=== PATIENT | male | born 1935 | race Caucasian/White ===

== ENCOUNTER 2016-10-25 20:07 | Inpatient (IN) | payer MEDICARE ==
[~2016-10-25] VITALS: Ht 171.4 cm; Wt 85.4 kg
[~2016-10-25 20:07] MED LIST: HYDR-3533 PO; LEVO175T19 PO; LISI30TA44 PO; TEMA30CA PO
[2016-10-25 20:15] VITALS: BP 150/72; PULSE 98; RESP 18; TEMP 98.5; O2SAT 91
[2016-10-25] MEDS ORDERED: SODIUM CHLORIDE 0.9% FLUSH 5 ML FLUSH IVF PRN (21:15)
[2016-10-25 21:20] VITALS: O2SAT 98
[2016-10-25 21:40] VITALS: BP 135/72; PULSE 88; RESP 18; O2SAT 98
--- NOTE | 2016-10-25 21:44 | RADHPO ---
EXAM DATE/TIME: 10/25/2016 21:27 [place] COMPARISON: No previous studies available for comparison. INDICATIONS : High fever and chills with cough. MEDICAL HISTORY : None. SURGICAL HISTORY : None. ENCOUNTER: Initial ACUITY: 2 days PAIN SCORE: 6/10 LOCATION: Bilateral upper chest FINDINGS: PA and lateral views of the chest demonstrate the lungs to be symmetrically aerated without evidence of mass, infiltrate or effusion. The cardiomediastinal contours are unremarkable. Osseous structure s are intact. CONCLUSION: No acute disease. Anuel Jaffe MD on October 25, 2016 at 21:42 Board Certified Radiologist. This report was verified electronically.
[2016-10-25 21:48] LABS: AUTOMATED NEUTROPHIL # 4.9 TH/MM3 (1.8-7.7); BASOPHIL # 0.1 TH/MM3 (0-0.2); BASOPHIL % 0.8 % (0.0-2.0); EOSINOPHIL # 0.1 TH/MM3 (0-0.4); EOSINOPHIL % 1.4 % (0.0-4.0); HEMATOCRIT 39.8 % (39.0-51.0); HEMO FLAGS DIFF FINAL; LYMPH % 13.5 % (9.0-44.0); MEAN CELL VOLUME 93.6 FL (80.0-100.0); MEAN CORPUSCULAR HEMOGLOBIN 31.4 PG (27.0-34.0); MEAN CORPUSCULAR HGB CONC 33.5 % (32.0-36.0); MONO % 14.6 % (0.0-8.0); NEUT % 69.7 % (16.0-70.0); PLATELET COUNT 184 TH/MM3 (150-450); RED BLOOD COUNT 4.25 MIL/MM3 (4.50-5.90); RED CELL DISTRIBUTION WIDTH 13.7 % (11.6-17.2); WHITE BLOOD COUNT 7.1 TH/MM3 (4.0-11.0)
[2016-10-25] MEDS ORDERED: LISI-515 PO (21:49)
[2016-10-25] MEDS ORDERED: LEVO125T4 PO (21:49)
[2016-10-25] MEDS ORDERED: DORZ2SOL15 EACH EYE (21:49)
[2016-10-25] MEDS ORDERED: LATA0.002 EACH EYE (21:49)
[2016-10-25] MEDS ORDERED: TEMA15CA PO (21:49)
[2016-10-25 21:57] LABS: POTASSIUM 3.8 MEQ/L (3.5-5.1)
[2016-10-25 22:02] LABS: APTT (PATIENT) 27.6 SEC (24.3-30.1); PROTHROMBIN TIME - PATIENT 10.9 SEC (9.8-11.6)
[2016-10-25] MEDS ORDERED: ASPIRIN 81 MG CHEW TAB CHEW ONE (22:30)
[2016-10-25 22:35] VITALS: BP 140/74; PULSE 84; RESP 16
[2016-10-25] MEDS ORDERED: HEPARIN-D5W INJ 250 ML IV SCH (22:45)
[2016-10-25] MEDS ORDERED: HEPARIN SODIUM - IV 10,000 UNITS/10 ML VIAL IV ONE (22:45)
[2016-10-25 22:50] VITALS: BP 140/70; PULSE 91; RESP 18; O2SAT 96
[2016-10-25] MEDS ORDERED: NITROGLYCERIN 0.4 MG SL 25 TABS/BTL SL ONE (23:00)
[2016-10-25 23:26] VITALS: BP 152/75; PULSE 82; RESP 17; O2SAT 98
[2016-10-25] MEDS ORDERED: ACETAMINOPHEN 500 MG CPLT PO PRN (23:30)
[2016-10-25] MEDS ORDERED: TEMAZEPAM 15 MG CAP PO PRN (23:30)
--- NOTE | 2016-10-25 23:38 | HHI.HP ---
HPI Service CP Hospitalists Primary Care Physician Non-Staff Admission Diagnosis NSTEMI Chief Complaint: CHEST TIGHTNESS, FLU LIKE ILLNESS WITH DRY HEAVES Travel History International Travel<30 Days: No Contact w/Intl Traveler <30 Da: No Traveled to Known Affected Are: No History of Present Illness Pt with HTN and hypothyroidism presents with c/o dry heaves, fever for last 1.5 days. No foreign travel. Noted some epigastric pain and chest tightness that he ascribed to dry heaves. Has had similar intermittent chest tightness over last 6 mos which he thought was due to hiatal hernia. He presented to ER as chest tightness lasted all night and all day today and was increasing painful to 8/10 intensity. No radiation of pain. ER eval noted for healthy appearing male in no significant distress, but Trop elevated to 0.68. Non-STEMI dx and cardiology recommended heparin and xfer to [facility]. Pt appears quite stable and no significant EKG changes noted. Review of Systems Constitutional: COMPLAINS OF: Fatigue, Change in appetite Ears, nose, mouth, throat: COMPLAINS OF: Nasal discharge, DENIES: Tinnitus, Hearing loss, Vertigo, Oral lesions, Throat pain, Hoarseness, Ear Pain, Running Nose, Epistaxis, Sinus Pain, Toothache, Odynophagia Respiratory: COMPLAINS OF: Cough, DENIES: Apneas, Snoring, Wheezing, Hemoptysis, Sputum production, Shortness of breath Cardiovascular: COMPLAINS OF: Chest pain Gastrointestinal: COMPLAINS OF: Nausea, Reflux, DENIES: Abdominal pain, Black stools, Bloody stools, BRB per rectum, Constipation, Diarrhea, GERD, Vomiting, Difficulty Swallowing, Anorexia, See HPI Musculoskeletal: DENIES: Joint pain, Muscle aches, Stiffness, Joint Swelling, Back pain, Neck pain Integumentary: DENIES: Abnormal pigmentation, Nail changes, Pruritus, Rash Hematologic/lymphatic: DENIES: Bruising, Lymphadenopathy Immunologic/allergic: DENIES: Eczema, Urticaria Neurologic: DENIES: Abnormal gait, Headache, Localized weakness, Paresthesias, Seizures, Speech Problems, Tremor, Poor Balance Psychiatric: DENIES: Anxiety, Confusion, Mood changes, Depression, Hallucinations, Agitation, Suicidal Ideation, Homicidal Ideation, Delusions, History of Bipolar, History of Schizophrenia Past Family Social History Past Medical History HTN hypothyroidism Glaucoma Past Surgical History T&A Appy Reported Medications levothyroxine. Lisinopril Glaucoma drops Allergies: Coded Allergies: No Known Allergies (Verified , 10/25/16) Family History Father of [place] in his 50s Social History No tobacco 1-2 drinks twice a week retired [employer] from [employer] Physical Exam Vital Signs Vital Signs Date Time Temp Pulse Resp B/P Pulse Ox O2 Delivery O2 Flow Rate FiO2 10/25/16 23:26 82 17 152/75 98 Nasal Cannula 2 10/25/16 22:47 100 Nasal Cannula 2 10/25/16 21:40 88 18 135/72 98 Room Air 10/25/16 21:20 Room Air 10/25/16 21:20 98 Room Air 10/25/16 20:15 98.5 98 18 150/72 91 Physical Exam GENERAL: This is a well-nourished, well-developed patient, in no apparent distress. Appears younger than stated age. SKIN: slightly xerotic HEAD: Atraumatic. Normocephalic. No temporal or scalp tenderness. EYES: Pupils equal round and reactive. Extraocular motions intact. No scleral icterus. No injection or drainage. ENT: Nose without bleeding, purulent drainage or septal hematoma. Airway patent. NECK: Trachea midline. No JVD or lymphadenopathy. Supple, nontender, no meningeal signs. CARDIOVASCULAR: Regular rate and rhythm without murmurs, gallops, or rubs. RESPIRATORY: Clear to auscultation. Breath sounds equal bilaterally. No wheezes , rales, or rhonchi. GASTROINTESTINAL: Abdomen soft, nondistended. Mild ttp in epigastrium. No hepato -splenomegaly, or palpable masses. No guarding. MUSCULOSKELETAL: Extremities without clubbing, cyanosis, or edema. No joint tenderness, effusion, or edema noted. No calf tenderness. NEUROLOGICAL: Awake and alert. Cranial nerves II through XII intact. Motor and sensory grossly within normal limits. Five out of 5 muscle strength in all muscle groups. Normal speech. Laboratory Laboratory Tests Test 10/25/16 21:25 White Blood Count 7.1 Red Blood Count 4.25 Hemoglobin 13.3 Hematocrit 39.8 Mean Corpuscular Volume 93.6 Mean Corpuscular Hemoglobin 31.4 Mean Corpuscular Hemoglobin 33.5 Concent Red Cell Distribution Width 13.7 Platelet Count 184 Mean Platelet Volume 8.3 Neutrophils (%) (Auto) 69.7 Lymphocytes (%) (Auto) 13.5 Monocytes (%) (Auto) 14.6 Eosinophils (%) (Auto) 1.4 Basophils (%) (Auto) 0.8 Neutrophils # (Auto) 4.9 Lymphocytes # (Auto) 1.0 Monocytes # (Auto) 1.0 Eosinophils # (Auto) 0.1 Basophils # (Auto) 0.1 CBC Comment DIFF FINAL Differential Comment Prothrombin Time 10.9 Prothromb Time International 1.0 Ratio Activated Partial 27.6 Thromboplast Time Sodium Level 140 Potassium Level 3.8 Chloride Level 105 Carbon Dioxide Level 25.0 Anion Gap 10 Blood Urea Nitrogen 15 Creatinine 1.10 Estimat Glomerular Filtration 64 Rate Random Glucose 94 Calcium Level 8.7 Magnesium Level 2.0 Total Creatine Kinase 79 Troponin I 0.68 Date/Time Procedure Status Source Growth 10/25/16 21:29 Influenza Types A,B Antigen (TATIANNA) - Final Complete Nasal Washing Positive For Flu A Antigen Result Diagram: 10/25/16212410/25/162124 Imaging Last 72 hours Impressions Chest X-Ray 10/25/16 0000 Signed Impressions: Service Date/Time: Tuesday, October 25, 2016 21:27 - CONCLUSION: No acute disease. Anuel Jaffe MD Assessment and Plan Problem List: (1) Non-STEMI (non-ST elevated myocardial infarction) Status: Acute Plan: Clinically stable. Cardiology consulted and ER physician d/w Dr Padilla. Will xfer to [facility]. Continue meds including heparin. Currently no CP (2) Influenza Status: Acute Plan: manage symptomatically. Appears well. (3) Hypertension Status: Chronic Plan: continue rx. (4) Hypothyroid Status: Chronic Plan: continue rx. Code Status full Discussed Condition With pt and Er physician Physician Certification 2 Midnight Certification Type: Admission for Inpatient Services Order for Inpatient Services The services are ordered in accordance with Medicare regulations or non- Medicare payer requirements, as applicable. In the case of services not specified as inpatient-only, they are appropriately provided as inpatient services in accordance with the 2-midnight benchmark. Estimated LOS (days): 2 days is the estimated time the patient will need to remain in the hospital, assuming treatment plan goals are met and no additional complications. Post-Hospital Plan: Home David Hill MD PhD Oct 25, 2016 23:38
--- NOTE | 2016-10-25 23:56 | PD ---
HPI Chief Complaint: Abdominal Pain Time Seen by Provider: 21:05 Travel History International Travel<30 days: No Contact w/Intl Traveler<30days: No Traveled to known affect area: No History of Present Illness HPI Patient is an 81-year-old male presents emergency department for evaluation of flulike symptoms for the past few days and then chest tightness in the epigastric region without radiation since last night. Was accompanied with some nausea without vomiting but no shortness of breath. Patient thought it was his hiatal hernia that was acting up but decided to come in and be checked out anyways. States he had a fever the other day to 101. Does also endorse cough and some mild body aches. No history of cardiac disease but does endorse hypertension hyperlipidemia. Has never seen a academic advisor. On arrival he states his chest tightness is minimal. PFSH Past Medical History Heart Rhythm Problems: No Cardiac Catheterization: No High Cholesterol: No Congestive Heart Failure: No Diabetes: No Hiatal Hernia: Yes Hypertension: Yes Inguinal Hernia: Yes Thyroid Disease: Yes Tetanus Vaccination: < 5 Years Influenza Vaccination: Yes Past Surgical History Appendectomy: Yes Coronary Artery Bypass Graft: No Tonsillectomy: Yes Other Surgery: Yes (INGUINAL HERNIA REMOVED ) Family History Family Myocardial Infarction: Yes (father of heat attack) Social History Alcohol Use: Yes (OCC) Tobacco Use: No Substance Use: No Allergies-Medications (Allergen,Severity, Reaction): Coded Allergies: No Known Allergies (Verified , 10/25/16) Reported Meds & Prescriptions Reported Meds & Active Scripts Active Reported Dorzolamide-Timolol Opth Drops 22.3-6.8 Mg/Ml Soln 1 Drop EACH EYE BID Latanoprost Opth Drops (Latanoprost) 0.005% Drops 1 Drop EACH EYE HS Refrigerate until opened. Temazepam 15 Mg Cap 15 Mg PO HS PRN Levothyroxine (Levothyroxine Sodium) 125 Mcg Tab 150 Mcg PO DAILY Lisinopril 20 Mg Tab 20 Mg PO DAILY Review of Systems Except as stated in HPI: all other systems reviewed are Neg Physical Exam Narrative GENERAL: Well-developed well-nourished appears younger stated age chewing gum in no apparent distress. SKIN: Warm and dry. HEAD: Atraumatic. Normocephalic. EYES: Pupils equal and round. No scleral icterus. No injection or drainage. ENT: No nasal bleeding or discharge. Mucous membranes pink and moist. NECK: Trachea midline. No JVD. CARDIOVASCULAR: Regular rate and rhythm. No murmur appreciated. RESPIRATORY: No accessory muscle use. Clear to auscultation. Breath sounds equal bilaterally. GASTROINTESTINAL: Abdomen soft, non-tender, nondistended. Hepatic and splenic margins not palpable. MUSCULOSKELETAL: No obvious deformities. No clubbing. No cyanosis. No edema. NEUROLOGICAL: Awake and alert. No obvious cranial nerve deficits. Motor grossly within normal limits. Normal speech. PSYCHIATRIC: Appropriate mood and affect; insight and judgment normal. Data Data Last Documented VS Vital Signs Date Time Temp Pulse Resp B/P Pulse Ox O2 Delivery O2 Flow Rate FiO2 10/25/16 22:50 91 18 140/70 96 Nasal Cannula 2 10/25/16 20:15 98.5 Orders Electrocardiogram (10/25/16 21:10) Basic Metabolic Panel (Bmp) (10/25/16 21:10) Ckmb (Isoenzyme) Profile (10/25/16 21:10) Complete Blood Count With Diff (10/25/16 21:10) Magnesium (Mg) (10/25/16 21:10) Prothrombin Time / Inr (Pt) (10/25/16 21:10) Act Partial Throm Time (Ptt) (10/25/16 21:10) Troponin I (10/25/16 21:10) Ecg Monitoring (10/25/16 21:10) Iv Access Insert/Monitor (10/25/16 21:10) Oximetry (10/25/16 21:10) Oxygen Administration (10/25/16 21:10) Sodium Chloride 0.9% Flush (Ns Flush) (10/25/16 21:15) Chest, Pa & Lat (10/25/16 ) Influenzae A/B Antigen (10/25/16 21:10) Aspirin Chew (Aspirin Chew) (10/25/16 22:30) Heparin Infusion FLOR.Q1H (10/25/16 22:45) Heparin Inj (Heparin Inj) (10/25/16 22:45) Heparin Inj (Heparin Inj) (10/26/16 04:45) Heparin Inj (Heparin Inj) (10/26/16 04:45) Heparin-D5w Inj (Heparin-D5w Inj) (10/25/16 22:45) Cbc No Diff, Includes Plts (10/28/16 06:00) Act Partial Throm Time (Ptt) (10/26/16 05:45) Occult Blood (Hemoccult) Stool (10/25/16 22:45) Nitroglycerin Sl (Nitrostat Sl) (10/25/16 23:00) Admit Order (Ed Use Only) (10/25/16 ) Labs Laboratory Tests Test 10/25/16 21:25 White Blood Count 7.1 TH/MM3 Red Blood Count 4.25 MIL/MM3 Hemoglobin 13.3 GM/DL Hematocrit 39.8 % Mean Corpuscular Volume 93.6 FL Mean Corpuscular Hemoglobin 31.4 PG Mean Corpuscular Hemoglobin 33.5 % Concent Red Cell Distribution Width 13.7 % Platelet Count 184 TH/MM3 Mean Platelet Volume 8.3 FL Neutrophils (%) (Auto) 69.7 % Lymphocytes (%) (Auto) 13.5 % Monocytes (%) (Auto) 14.6 % Eosinophils (%) (Auto) 1.4 % Basophils (%) (Auto) 0.8 % Neutrophils # (Auto) 4.9 TH/MM3 Lymphocytes # (Auto) 1.0 TH/MM3 Monocytes # (Auto) 1.0 TH/MM3 Eosinophils # (Auto) 0.1 TH/MM3 Basophils # (Auto) 0.1 TH/MM3 CBC Comment DIFF FINAL Differential Comment Prothrombin Time 10.9 SEC Prothromb Time International 1.0 RATIO Ratio Activated Partial 27.6 SEC Thromboplast Time Sodium Level 140 MEQ/L Potassium Level 3.8 MEQ/L Chloride Level 105 MEQ/L Carbon Dioxide Level 25.0 MEQ/L Anion Gap 10 MEQ/L Blood Urea Nitrogen 15 MG/DL Creatinine 1.10 MG/DL Estimat Glomerular Filtration 64 ML/MIN Rate Random Glucose 94 MG/DL Calcium Level 8.7 MG/DL Magnesium Level 2.0 MG/DL Total Creatine Kinase 79 U/L Troponin I 0.68 NG/ML MDM Medical Decision Making Medical Screen Exam Complete: Yes Emergency Medical Condition: Yes Interpretation(s) EKG shows normal sinus rhythm with a left axis deviation and normal R-wave progression. Could be treated as inferior infarct by lead 3 and aVF Q waves. Intervals within normal limits. No acute ST T changes. This is an abnormal EKG but no evidence of ischemia. Differential Diagnosis NSTEMI, flu, pneumonia, NV, ACS, hiatal hernia, pancreatitis much less likely, acute cholecystitis versus likely, acute abdomen excluded clinically. Narrative Course Patient roomed in the emergency department, appears well and younger than stated age. In no obvious distress. EKG is reassuring, his troponin is 0.68. Rapid flu test is positive here in the emergency department. He was given aspirin as well as heparinized. Patient was discussed with Dr. Chris Padilla who would like patient transferred to the main hospital for consideration of intervention tomorrow. Patient discussed with Dr. Hill who will admit. Patient remains comfortable in the emergency department. Diagnosis Primary Impression: Non-STEMI (non-ST elevated myocardial infarction) Additional Impression: Influenza Admitting Information Admitting Physician Requests: Admit Condition: Stable Ag Maddox MD Oct 25, 2016 23:56
[2016-10-26] VITALS (26 sets, daily range): BP systolic 117–160; BP diastolic 52–75; PULSE 62–92; RESP 18–20; TEMP 97.8–99.7; O2SAT 94–98
[2016-10-26] MEDS: NITROGLYCERIN 2% OINT 1 GM PACKET TOPICAL SCH ×3 (00:54→22:03)
[2016-10-26] MEDS ORDERED: HEPARIN SODIUM - IV 10,000 UNITS/10 ML VIAL IV PRN ×2 (04:45)
[2016-10-26] MEDS: LEVOTHYROXINE SODIUM 125 MCG TAB PO SCH (07:08)
[2016-10-26] MEDS ORDERED: ONDANSETRON HCL 4 MG/2 ML VIAL IV PRN ×2 (08:45→14:30)
[2016-10-26] MEDS ORDERED: PHENOL 1.4% SOLN 180 ML BTL OROPHARYNG PRN (08:45)
--- NOTE | 2016-10-26 08:59 | HHI.PR ---
Subjective Remarks Pt reports that he feels terrible, very achy and his throat is very sore today States that his symptoms started Tuesday afternoon with myalgias and dry heaves He is planned for [facility] this afternoon. Objective Vitals Vital Signs Date Time Temp Pulse Resp B/P Pulse Ox O2 Delivery O2 Flow Rate FiO2 10/26/16 03:52 97.8 76 18 139/60 97 10/26/16 03:50 70 10/26/16 03:06 98.9 82 18 132/61 96 Nasal Cannula 2 10/26/16 03:06 98.9 82 18 132/61 Nasal Cannula 2 96 10/26/16 03:06 82 18 96 Nasal Cannula 2 10/26/16 02:11 85 18 117/52 96 Nasal Cannula 10/26/16 00:50 71 18 137/71 98 Nasal Cannula 1 10/26/16 00:11 98.8 84 18 131/71 96 Nasal Cannula 2 10/25/16 23:30 18 98 Nasal Cannula 2 10/25/16 23:26 82 17 152/75 98 Nasal Cannula 2 10/25/16 22:50 91 18 140/70 96 Nasal Cannula 2 10/25/16 22:47 100 Nasal Cannula 2 10/25/16 22:35 84 16 140/74 10/25/16 21:40 88 18 135/72 98 Room Air 10/25/16 21:20 Room Air 10/25/16 21:20 98 Room Air 10/25/16 20:15 98.5 98 18 150/72 91 10/25/16 10/25/16 10/26/16 15:00 23:00 07:00 Output Total 650 ml Balance -650 ml Output Urine Total 650 ml Result Diagram: 10/25/16212410/25/162124 Other Results Laboratory Tests Test 10/25/16 10/26/16 21:25 03:09 White Blood Count 7.1 TH/MM3 Red Blood Count 4.25 MIL/MM3 Hemoglobin 13.3 GM/DL Hematocrit 39.8 % Mean Corpuscular Volume 93.6 FL Mean Corpuscular Hemoglobin 31.4 PG Mean Corpuscular Hemoglobin 33.5 % Concent Red Cell Distribution Width 13.7 % Platelet Count 184 TH/MM3 Mean Platelet Volume 8.3 FL Neutrophils (%) (Auto) 69.7 % Lymphocytes (%) (Auto) 13.5 % Monocytes (%) (Auto) 14.6 % Eosinophils (%) (Auto) 1.4 % Basophils (%) (Auto) 0.8 % Neutrophils # (Auto) 4.9 TH/MM3 Lymphocytes # (Auto) 1.0 TH/MM3 Monocytes # (Auto) 1.0 TH/MM3 Eosinophils # (Auto) 0.1 TH/MM3 Basophils # (Auto) 0.1 TH/MM3 CBC Comment DIFF FINAL Differential Comment Prothrombin Time 10.9 SEC Prothromb Time International 1.0 RATIO Ratio Activated Partial 27.6 SEC Thromboplast Time Sodium Level 140 MEQ/L Potassium Level 3.8 MEQ/L Chloride Level 105 MEQ/L Carbon Dioxide Level 25.0 MEQ/L Anion Gap 10 MEQ/L Blood Urea Nitrogen 15 MG/DL Creatinine 1.10 MG/DL Estimat Glomerular Filtration 64 ML/MIN Rate Random Glucose 94 MG/DL Calcium Level 8.7 MG/DL Magnesium Level 2.0 MG/DL Total Creatine Kinase 79 U/L Troponin I 0.68 NG/ML 0.66 NG/ML Imaging Last 72 hours Impressions Chest X-Ray 10/25/16 0000 Signed Impressions: Service Date/Time: Tuesday, October 25, 2016 21:27 - CONCLUSION: No acute disease. Anuel Jaffe MD Objective Remarks General: NAD, AAOx3 Chest: CTA Cardiac: Regular Abd: +BS, soft ND/NT Ext: No edema A/P Problem List: (1) Non-STEMI (non-ST elevated myocardial infarction) Status: Acute Plan: - Pt has been having chest pressure intermittently for around 6 months this worsened yesterday after he had been having dry heaves since Tuesday afternoon (10/24) - He was noted to have elevated troponin in the ED of 0.68 --> 0.66 - Cardiology is following. - Pt is on Heparin gtt. - He is planned for [facility] this afternoon. - He denies any chest pressure currently - FELIX/ASA/Nitro (2) Influenza Status: Acute Plan: - Pt with myalgias, chills, pharyngitis, and had been having dry heaving. - Pt tested positive for Influenza A antigen - Start Tamiflu 75mg po BID as his symptoms began less than 2 days ago. - IVF - Zofran PRN - Tylenol PRN (3) Hypertension Status: Chronic Plan: - Stable. - Continue home rx. (4) Hypothyroid Status: Chronic Plan: - Continue home rx. Assessment and Plan Patient examined. Assessment and plan formulated with Mouna Hackett PA-C. I agree with the above. influenza. tamiflu cp/elevated ce's. [facility] today. Mouna Hackett Oct 26, 2016 08:59 Valeriano Hardy MD Oct 26, 2016 15:21
[2016-10-26] MEDS ORDERED: ASPIRIN 325 MG TAB PO SCH (09:00)
[2016-10-26] MEDS ORDERED: SODIUM CHLOR 0.9% 1000 ML INJ 1,000 ML IV SCH ×2 (09:00→14:16)
--- NOTE | 2016-10-26 09:18 | MB ---
cc: CHRIS PADILLA MD DATE OF CONSULTATION 10/26/2016 HISTORY OF PRESENT ILLNESS Mr. Stewart is a 89-year-old gentleman who has been admitted to the hospital because of some flu-like symptoms. On Tuesday he began having a sore throat with cough, headache and nausea and vomiting. He came to the emergency department and on presentation was found to have an elevated troponin. He has noted chest discomfort over the past six months which he describes as in the lower substernal at approximately the sternal notch. This generally occurs at rest and can last for as long as 20 minutes. It is associated with some shortness of breath. He has had no real exertional discomfort but has noted that [place] that evening will not uncommonly have his symptoms. No real exertional symptoms have been present, however, and the discomfort is usually spontaneously relieved. His risk factors for coronary disease include a history of hypertension. He denies any history of diabetes, hyperlipidemia or smoking. PAST MEDICAL HISTORY Otherwise has been unremarkable except for - Appendectomy Inguinal hernia repair. FAMILY HISTORY His father did of an OH at a later age. SOCIAL HISTORY The patient does not smoke or use recreational drugs. He rarely drinks alcohol. ALLERGIES No allergies are present . MEDICATIONS AT HOME 1. Temazepam at bedtime for sleep. 2. Levothyroxine 125 mcg daily. 3. Lisinopril 20 mg daily. PHYSICAL EXAMINATION GENERAL: On physical exam he is awake and alert and in no acute distress. VITAL SIGNS: His blood pressure is 130/60, pulse of 70 and regular. NECK: There is no neck vein distension. LUNGS: Clear. CARDIOVASCULAR: Exam reveals a 2/6 mitral regurgitation murmur at the apex with radiation throughout the precordium. No gallop was noted. ABDOMEN: Soft. There is no tenderness or organomegaly. EXTREMITIES: Reveal no edema. ELECTROCARDIOGRAM Normal sinus rhythm with minor nonspecific ST-segment changes. ASSESSMENT 1. The patient has actually had flu symptoms which are quiescent at this point in time. 2. he does have atypical chest pain but with an elevated troponin. PLAN We will plan a cardiac catheterization for further evaluation and we will also get an echocardiogram to further evaluate his mitral regurgitation. Chris Padilla MD DLMari/BEATRIZ /7:24 AM /9:05 AM
[2016-10-26] MEDS: LISINOPRIL 20 MG TAB PO SCH (10:09)
[2016-10-26 10:19] LABS: APTT (PATIENT) 64.2 SEC (24.3-30.1)
--- NOTE | 2016-10-26 10:25 | EC ---
Study Study Date:10/26/2016 STUDY CONCLUSIONS SUMMARY - Procedure narrative: Transthoracic echocardiography. Image quality was adequate. Scanning was performed from the parasternal, apical, and subcostal acoustic windows. - Left ventricle: The cavity size was normal. Wall thickness was normal. Systolic function was normal. The estimated ejection fraction was in the range of 60% to 65%. Wall motion was normal; there were no regional wall motion abnormalities. - Aortic valve: Moderate leaflet sclerosis. Mild regurgitation. Mean gradient: 25mm Hg consistent with mild to moderate stenosis. - Mitral valve: Mildly calcified annulus. Trace regurgitation. - Tricuspid valve: Trace regurgitation. - Pulmonary arteries: PA peak pressure: 32mm Hg (S). If LV function is below 40, please consider prescribing an ACEI or ARB or document rationale for non-use. PROCEDURE DATA STUDY STATUS: Elective. Procedure: Transthoracic echocardiography. Image quality was adequate. Scanning was performed from the parasternal, apical, and subcostal acoustic windows. Study completion: The patient tolerated the procedure well. Transthoracic echocardiography. M-mode, complete 2D, complete spectral Doppler, and color Doppler. Height: Height: 67in. Weight: Weight: 187.6lb. Body mass index: BMI: 29.4kg/m^2. Body surface area: BSA: 1.97m^2. Patient status: Inpatient. CARDIAC ANATOMY LEFT VENTRICLE: The cavity size was normal. Wall thickness was normal. Systolic function was normal. The estimated ejection fraction was in the range of 60% to 65%. Wall motion was normal; there were no regional wall motion abnormalities. AORTIC VALVE: Moderate leaflet sclerosis. Doppler: Mild regurgitation. Valve area: 1.1cm^2(VTI). Indexed valve area: 0.56cm^2/m^2 (VTI). Valve area: 1.04cm^2 (Vmax). Indexed valve area: 0.53cm^2/m^2 (Vmax). Mean gradient: 25mm Hg consistent with mild to moderate stenosis. Peak gradient: 46mm Hg (S). AORTA: Aortic root: The aortic root was normal in size. MITRAL VALVE: Mildly calcified annulus. Doppler: Transvalvular velocity was within the normal range. There was no evidence for stenosis. Trace regurgitation. Peak gradient: 4mm Hg (D). LEFT ATRIUM: The atrium was normal in size. RIGHT VENTRICLE: The cavity size was normal. Wall thickness was normal. PULMONIC VALVE: Doppler: Transvalvular velocity was within the normal range. There was no evidence for stenosis. No regurgitation. TRICUSPID VALVE: Structurally normal valve. Doppler: Transvalvular velocity was within the normal range. Trace regurgitation. PULMONARY ARTERY: The main pulmonary artery was normal-sized. Systolic pressure was within the normal range. RIGHT ATRIUM: The atrium was normal in size. PERICARDIUM: There was no pericardial effusion. SYSTEMIC VEINS: Inferior vena cava: The vessel was normal in size. Patient weight: 187.6lb _Ejection fraction:_ 65-75% _Fractional shortening:_ 32% up to 5Kg 5-11.5Kg 11.6-22.9Kg 23-45Kg 45-57Kg Aortic Root 7-13 <17 13-22 17-27 17-27 LA diam 6-13 <23 24-38 33-47 37-40 RVID 10-17 7-15 7-15 7-18 8-17 LVIDd 12-22 <32 24-38 33-47 37-40 LVPW 2-4 3-6 5-7 6-8 7-8 IVS 2-4 3-6 5-7 6-8 7-8 BASIC MEASUREMENTS ADULT NORMAL Left ventricle LV internal dimension, ED, chordal 44.7 mm 43-52 level, PLAX LV internal dimension, ES, chordal 32.4 mm 23-38 level, PLAX Fractional shortening, chordal level, *28 % >29 PLAX LV posterior wall thickness, ED 6.95 mm IVS/LVPW ratio, ED 1.07 <1.3 Ventricular septum Septal thickness, ED 7.47 mm Left atrium Anterior-posterior dimension 31 mm Anterior-posterior dimension index 1.57 cm/m^2 <2.2 Right ventricle RV internal dimension, ED, PLAX 26.2 mm 19-38 DOPPLER MEASUREMENTS ADULT NORMAL Main pulmonary artery Pressure, S *32 mm Hg =30 Aortic valve Peak velocity, S 313 cm/s Mean velocity, S 236 cm/s VTI, S 65.5 cm Mean gradient, S 25 mm Hg Peak gradient, S 46 mm Hg Valve area, VTI 1.1 cm^2 Valve area index, VTI 0.56 cm^2/m^2 Valve area, Vmax 1.04 cm^2 Valve area index, Vmax 0.53 cm^2/m^2 Mitral valve Peak E-wave velocity 95 cm/s Peak A-wave velocity 122 cm/s Peak gradient, D 4 mm Hg Peak E/A ratio 0.8 Maximal regurgitant velocity 599 cm/s Tricuspid valve Regurgitant peak velocity 259 cm/s Peak RV-RA gradient, S 27 mm Hg Maximal regurgitant velocity 259 cm/s Systemic veins Estimated CVP 5 mm Hg Right ventricle RV pressure, S *32 mm Hg <30 LEGEND: Mean values are shown as u=mean value. Asterisk (*) logan values outside specified normal range. Prepared and signed by Florian Jaimes [id number]
[2016-10-26] MEDS ORDERED: PHENOL 1.4% SOLN 180 ML BTL OROPHARYNG ONE (10:30)
[2016-10-26 10:48] LABS: HDL CHOLESTEROL 62.7 MG/DL (40.0-60.0)
--- NOTE | 2016-10-26 11:18 | EKG ---
Date Performed: 10/26/2016 Time Performed: 03:03:38 PTAGE: 81 years EKG: --- Warning: Data quality may affect interpretation --- Sinus rhythm with PAC(s). Lateral T wave changes are nonspecific Borderline ECG PREVIOUS TRACING : 10/25/2016 21.52 DOCTOR: Gurpreet Vasquez Interpretating Date/Time 10/26/2016 11:16:05
--- NOTE | 2016-10-26 11:18 | EKG ---
Date Performed: 10/25/2016 Time Performed: 21:52:06 PTAGE: 81 years EKG: Sinus rhythm Lateral ST-T changes are nonspecific Borderline ECG PREVIOUS TRACING : 03/06/2011 21.28 DOCTOR: Gurpreet Vasquez Interpretating Date/Time 10/26/2016 11:17:41
[2016-10-26] MEDS ORDERED: HEPARIN-NS/PF INJ 500 ML ONE (12:56)
[2016-10-26] MEDS ORDERED: MIDAZOLAM HCL 2 MG/2 ML VIAL ONE (12:56)
[2016-10-26] MEDS: OSELTAMIVIR PHOSPHATE 75 MG CAP PO SCH ×2 (13:00→22:03)
[2016-10-26] MEDS ORDERED: HEPARIN SODIUM - IV 10,000 UNITS/10 ML VIAL ONE (13:36)
[2016-10-26] MEDS ORDERED: NITROGLYCERIN 400 MCG/SPRAY 4.9 GM BOTTLE SL ONE (14:01)
[2016-10-26] MEDS ORDERED: CLOPIDOGREL 300 MG TAB ONE (14:07)
[2016-10-26] MEDS ORDERED: BACITRACIN OINT 0.9 GM PKT TOP ONE (14:30)
[2016-10-26] MEDS ORDERED: LIDOCAINE HCL 1% 50 ML VIAL INFIL PRN (14:30)
[2016-10-26] MEDS ORDERED: SODIUM CHLORIDE 0.9% FLUSH 10 ML FLUSH IV FLUSH PRN (14:30)
[2016-10-26] MEDS ORDERED: MISC INFORMATION XX ONE (14:30)
[2016-10-26] MEDS ORDERED: ATROPINE SULFATE 1 MG/ML VIAL IV PRN (14:30)
[2016-10-26] MEDS ORDERED: LIDOCAINE 2% JELLY 30 ML TUBE TOP PRN (14:30)
[2016-10-26] MEDS ORDERED: oxyCODONE/ACETAMINOPHEN 5 MG/325 MG TAB PO PRN (14:30)
[2016-10-26] MEDS ORDERED: METOCLOPRAMIDE HCL 10 MG/2 ML VIAL IV PRN (14:30)
[2016-10-26] MEDS ORDERED: LORazepam 2 MG/ML VIAL IV PRN (14:30)
[2016-10-26] MEDS ORDERED: SODIUM CHLOR 0.9% 250 ML INJ 250 ML IV PRN (14:30)
[2016-10-26] MEDS ORDERED: PILL SPLITTER OTHER PRN (15:00)
[2016-10-26 17:42] LABS: APTT (PATIENT) 99.7 SEC (24.3-30.1)
--- NOTE | 2016-10-26 17:56 | MA ---
cc: ALICIA CANALES MD DATE: 10/26/2016 PROCEDURE: Cardiac catheterization DESCRIPTION OF PROCEDURE: The patient was prepped and draped in the usual fashion. A 6-sheath was inserted percutaneously into the right femoral artery. Coronary angiography was accomplished initially with a 4-0 left catheter which was switched to a 4.5 catheter for better fit. The right system was unable to be cannulated with an R4 but a 3DR was able to cannulate the artery. HEMODYNAMICS: Aortic pressure was 100/60. LEFT VENTRICULOGRAPHY Not done. CORONARY ARTERIOGRAPHY: The left main coronary was normal. The left anterior descending artery demonstrated a 30 to 40% stenosis in the proximal portion with a second 40 to 50% stenosis in the mid portion. The first diagonal demonstrated some luminal irregularities but no significant high-grade stenoses were seen and liminal irregularities were also present throughout the course of the LAD. The circumflex artery arose from the left main and a 99% stenosis was present in its proximal portion with luminal irregularities noted throughout the distal course of the artery. The left circumflex itself was anatomically dominant. The right coronary artery was small and nondominant. No significant stenoses were seen. Following consent, heparin was administered. Multiple attempts to cannulate the artery with initially an XB 3.5, 4.0, 4.5, Tyron 4, Tyron 4.5 were unsuccessful. It was noted the patient had very tortuous anatomy in his iliac system which prevented catheter manipulation. The sheath was substituted for a long sheath and a 4-0 Tyron again was unable to fit the artery, but a 4-5 was able to be manipulated into place. A Prowater wire was advanced into the distal portion of the artery. Primary stenting was unable to be accomplished due to failure to pass the stent through the lesion and pre-dilatation was done with a 2-5 x 6 millimeter balloon to 14 atmospheres. The stent was then able to be deployed and a 4-0 x 9 millimeter drug-eluding stent was deployed to 12 atmospheres with a good cosmetic result. No evidence for dissection which at present MARIANNA-3 flow was present pre and post dilatation. The sheath was sutured in place. The patient left the lab in good condition. 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 MD CORAZON Owusu/RADHA /2:23 PM /5:43 PM
[2016-10-26 19:24] LABS: APTT (PATIENT) 49.7 SEC (24.3-30.1)
[2016-10-26] MEDS: SODIUM CHLORIDE 0.9% FLUSH 10 ML FLUSH IV FLUSH SCH (21:00)
[2016-10-26] MEDS ORDERED: ATORVASTATIN 10 MG TAB PO SCH (21:00)
[2016-10-26] MEDS ORDERED: TEMAZEPAM 15 MG CAP PO PRN (21:00)
[2016-10-26] MEDS ORDERED: LATANOPROST 0.005% OPHT SOLN 2.5 ML BTL EACH EYE SCH (21:00)
[2016-10-26] MEDS: METOPROLOL TARTRATE 25 MG TAB PO SCH (22:03)
[2016-10-26] MEDS: DORZOLAMIDE/TIMOLOL OPTH SOLN 10 ML BTL EACH EYE SCH (22:04)
[2016-10-27] VITALS (12 sets, daily range): BP systolic 77–123; BP diastolic 47–70; PULSE 62–84; RESP 18; TEMP 98.1; O2SAT 94–95
[2016-10-27 05:21] LABS: HEMATOCRIT 34.3 % (39.0-51.0); MEAN CELL VOLUME 93.6 FL (80.0-100.0); MEAN CORPUSCULAR HEMOGLOBIN 32.2 PG (27.0-34.0); MEAN CORPUSCULAR HGB CONC 34.4 % (32.0-36.0); PLATELET COUNT 139 TH/MM3 (150-450); RED BLOOD COUNT 3.66 MIL/MM3 (4.50-5.90); RED CELL DISTRIBUTION WIDTH 13.6 % (11.6-17.2); WHITE BLOOD COUNT 8.1 TH/MM3 (4.0-11.0)
[2016-10-27 05:41] LABS: HDL CHOLESTEROL 60.2 MG/DL (40.0-60.0)
[2016-10-27 05:43] LABS: BICARBONATE 21.3 MEQ/L (21.0-32.0); POTASSIUM 4.1 MEQ/L (3.5-5.1)
[2016-10-27 05:48] LABS: HEMO FLAGS AUTO DIFF
[2016-10-27] MEDS: LEVOTHYROXINE SODIUM 125 MCG TAB PO SCH (06:07)
[2016-10-27] MEDS: NITROGLYCERIN 2% OINT 1 GM PACKET TOPICAL SCH (06:09)
[2016-10-27 07:16] LABS: BANDS 2 % (0-6); METAMYELOCYTES 1 % (0-1); NEUTROPHIL # MANUAL DIFF 5.5 TH/MM3 (1.8-7.7); PLASMA CELLS 1 % (0-0); POLYS (SEG NEUTROPHILS) 65 % (16-70); WBC DIFF SAMPLE 100
[2016-10-27 07:23] LABS: PLATELET ESTIMATE SMEAR LOW (NORMAL); PLATELET MORPHOLOGY NORMAL (NORMAL)
--- NOTE | 2016-10-27 07:34 | PD.CARD.PN ---
Subjective Subjective Remarks Feels well. No chest pain Objective Vital Signs / I&O Vital Signs Date Time Temp Pulse Resp B/P Pulse Ox O2 Delivery O2 Flow Rate FiO2 10/27/16 05:00 76 10/27/16 04:00 62 10/27/16 03:00 74 10/27/16 02:00 74 10/27/16 01:00 76 10/27/16 00:00 80 10/26/16 23:00 82 10/26/16 22:00 80 10/26/16 21:00 78 10/26/16 20:00 80 10/26/16 19:00 80 10/26/16 18:00 78 10/26/16 17:00 82 10/26/16 17:00 137/57 10/26/16 16:30 87 124/69 10/26/16 16:00 62 10/26/16 15:00 82 10/26/16 14:00 98.5 83 20 152/65 97 10/26/16 12:00 92 10/26/16 09:42 98.6 80 18 140/70 94 10/26/16 08:00 86 I/O 10/26/16 10/26/16 10/26/16 10/27/16 10/27/16 10/27/16 07:00 15:00 23:00 07:00 15:00 23:00 Intake Total 720 ml Output Total 650 ml 650 ml Balance -650 ml 70 ml Intake Oral 720 ml Output Urine Total 650 ml 650 ml Physical Exam Groin OK Lungs clear RRR Laboratory Laboratory Tests Test 10/26/16 10/26/16 10/26/16 10/27/16 09:50 17:06 19:00 04:40 Activated Partial 64.2 SEC 99.7 SEC 49.7 SEC Thromboplast Time Triglycerides Level 45 MG/DL 33 MG/DL Cholesterol Level 148 MG/DL 128 MG/DL LDL Cholesterol 76 MG/DL 61 MG/DL HDL Cholesterol 62.7 MG/DL 60.2 MG/DL Cholesterol/HDL Ratio 2.36 RATIO 2.12 RATIO Thyroid Stimulating Hormone 0.413 uIU/ML 3rd Gen Sodium Level 135 MEQ/L Potassium Level 4.1 MEQ/L Chloride Level 103 MEQ/L Carbon Dioxide Level 21.3 MEQ/L Anion Gap 11 MEQ/L Blood Urea Nitrogen 16 MG/DL Creatinine 1.11 MG/DL Estimat Glomerular Filtration 63 ML/MIN Rate Random Glucose 85 MG/DL Calcium Level 8.0 MG/DL Total Creatine Kinase 119 U/L Test 10/27/16 04:48 White Blood Count 8.1 TH/MM3 Red Blood Count 3.66 MIL/MM3 Hemoglobin 11.8 GM/DL Hematocrit 34.3 % Mean Corpuscular Volume 93.6 FL Mean Corpuscular Hemoglobin 32.2 PG Mean Corpuscular Hemoglobin 34.4 % Concent Red Cell Distribution Width 13.6 % Platelet Count 139 TH/MM3 Mean Platelet Volume 8.2 FL Neutrophils (%) (Auto) % Lymphocytes (%) (Auto) % Monocytes (%) (Auto) % Eosinophils (%) (Auto) % Basophils (%) (Auto) % Neutrophils # (Auto) TH/MM3 Lymphocytes # (Auto) TH/MM3 Monocytes # (Auto) TH/MM3 Eosinophils # (Auto) TH/MM3 Basophils # (Auto) TH/MM3 CBC Comment AUTO DIFF Differential Total Cells 100 Counted Neutrophils % (Manual) 65 % Band Neutrophils % 2 % Lymphocytes % 21 % Monocytes % 10 % Neutrophils # (Manual) 5.5 TH/MM3 Metamyelocytes 1 % Plasma Cells 1 % Platelet Estimate LOW Platelet Morphology Comment NORMAL Assessment and Plan Assessment and Plan Stable CV Ok to D/c Rx written for Plavix 75 mg daily, atorvastatin 20 mg daily , metoprolol 50 mg bid. F/U my office 1 week Chris Padilla MD Oct 27, 2016 07:34
[2016-10-27 07:39] LABS: SCAN/DIFF FINAL DIFF MANUAL
--- NOTE | 2016-10-27 08:42 | HHI.PR ---
Subjective Remarks doing ok. eager for d/c Objective Vitals heart reg lung good air entry abd s/nt ext no edema Vital Signs Date Time Temp Pulse Resp B/P Pulse Ox O2 Delivery O2 Flow Rate FiO2 10/27/16 05:00 76 10/27/16 04:30 68 104/47 10/27/16 04:00 62 77/48 10/27/16 04:00 62 10/27/16 03:00 74 10/27/16 03:00 72 18 109/53 10/27/16 03:00 68 109/53 10/27/16 02:00 74 98/60 10/27/16 02:00 74 10/27/16 01:00 81 123/69 95 10/27/16 01:00 76 10/27/16 00:15 79 120/55 95 10/27/16 00:00 80 10/26/16 23:45 76 122/67 97 10/26/16 23:15 78 129/64 96 10/26/16 23:00 82 10/26/16 23:00 99.0 73 18 123/71 96 10/26/16 22:45 77 134/66 97 10/26/16 22:15 81 160/75 97 10/26/16 22:00 80 143/70 98 10/26/16 22:00 80 10/26/16 21:45 83 139/73 97 10/26/16 21:30 78 136/69 97 10/26/16 21:00 78 10/26/16 20:00 80 10/26/16 19:00 80 10/26/16 19:00 99.7 77 18 120/69 94 10/26/16 18:00 78 10/26/16 17:00 82 10/26/16 17:00 137/57 10/26/16 16:30 87 124/69 10/26/16 16:00 62 10/26/16 15:00 82 10/26/16 14:00 98.5 83 20 152/65 97 10/26/16 12:00 92 10/26/16 09:42 98.6 80 18 140/70 94 10/26/16 10/26/16 10/27/16 15:00 23:00 07:00 Intake Total 720 ml Output Total 750 ml Balance -30 ml Intake Oral 720 ml Output Urine Total 750 ml Result Diagram: 10/27/16 0448 10/27/16 0440 Imaging Last 72 hours Impressions Chest X-Ray 10/25/16 0000 Signed Impressions: Service Date/Time: Tuesday, October 25, 2016 21:27 - CONCLUSION: No acute disease. Anuel Jaffe MD A/P Problem List: (1) Non-STEMI (non-ST elevated myocardial infarction) Status: Acute Plan: - Pt has been having chest pressure intermittently for around 6 months this worsened yesterday after he had been having dry heaves since Tuesday afternoon (10/24) - He was noted to have elevated troponin in the ED of 0.68 --> 0.66 - [facility] s/p PCI and stenting left cx d/c home today and cardiology f/u. (2) Influenza Status: Acute Plan: - Pt with myalgias, chills, pharyngitis, and had been having dry heaving. - Pt tested positive for Influenza A antigen - Start Tamiflu 75mg po BID as his symptoms began less than 2 days ago. - IVF - Zofran PRN - Tylenol PRN (3) Hypertension Status: Chronic Plan: - Stable. - Continue home rx. (4) Hypothyroid Status: Chronic Plan: - Continue home rx. Valeriano Hardy MD Oct 27, 2016 08:42
--- NOTE | 2016-10-27 08:44 | HHI.DCPOC ---
Discharge Care Plan Diagnosis: (1) Non-STEMI (non-ST elevated myocardial infarction) (2) Influenza Goals to Promote Your Health * To prevent worsening of your condition and complications * To maintain your health at the optimal level Directions to Meet Your Goals Take your medications as prescribed Follow your dietary instruction Follow activity as directed Keep your appointments as scheduled Take your immunizations and boosters as scheduled If your symptoms worsen call your PCP, if no PCP go to Urgent Care Center or Emergency Room Smoking is Dangerous to Your Health. Avoid second hand smoke Call the 24-hour hour crisis hotline for domestic abuse at Valeriano Hardy MD Oct 27, 2016 08:44
[2016-10-27] MEDS ORDERED: METO50TA PO (08:49)
[2016-10-27] MEDS ORDERED: ATOR20TA15 PO (08:49)
[2016-10-27] MEDS ORDERED: LISI10TA3 PO (08:49)
[2016-10-27] MEDS ORDERED: PLAV75TA29 PO (08:49)
[2016-10-27] MEDS ORDERED: Aspirin Chew PO (08:49)
[2016-10-27] MEDS ORDERED: OSEL75 PO (08:49)
[2016-10-27] MEDS ORDERED: CLOPIDOGREL 75 MG TAB PO SCH (09:00)
[2016-10-27] MEDS: SODIUM CHLORIDE 0.9% FLUSH 10 ML FLUSH IV FLUSH SCH (09:00)
[2016-10-27] MEDS ORDERED: ASPIRIN 81 MG CHEW TAB PO SCH (09:00)
--- NOTE | 2016-10-27 09:15 | EKG ---
Date Performed: 10/27/2016 Time Performed: 06:58:24 PTAGE: 81 years EKG: Sinus rhythm Poor R wave progression - probable normal variant Lateral T wave changes are nonspecific Borderline ECG PREVIOUS TRACING : 10/26/2016 03.03 DOCTOR: Vu Hensley Interpretating Date/Time 10/27/2016 09:14:17
[2016-10-27] MEDS: OSELTAMIVIR PHOSPHATE 75 MG CAP PO SCH (10:01)
[2016-10-27] MEDS: LISINOPRIL 20 MG TAB PO SCH (10:01)
[2016-10-27] MEDS: METOPROLOL TARTRATE 25 MG TAB PO SCH (10:01)
[2016-10-27] MEDS: DORZOLAMIDE/TIMOLOL OPTH SOLN 10 ML BTL EACH EYE SCH (10:02)
== END 2016-10-27 10:36 | disposition home or self-care (01) | DRG 247 ==
LOC: PHED 20:07 → PHEDA 22:51 → NEPGCP 10-26 03:38 → HCIS 10-26 10:05 → NEPGCP 10-26 10:46 → HCIS 10-26 12:47
PROVIDERS: ADMIT Hospitalist; ATTEND Hospitalist
PROC: 4A023N7 Measurement of Cardiac Sampling and Pressure, Left Heart, Percutaneous Approach (ICD-10-PCS; 2016-10-26)
PROC: B2111ZZ Fluoroscopy of Multiple Coronary Arteries using Low Osmolar Contrast (ICD-10-PCS; 2016-10-26)
PROC: B2151ZZ Fluoroscopy of Left Heart using Low Osmolar Contrast (ICD-10-PCS; 2016-10-26)
PROC: 027034Z Dilation of Coronary Artery, One Artery with Drug-eluting Intraluminal Device, Percutaneous Approach (ICD-10-PCS; principal; 2016-10-26 13:30)
DX: I21.4 Non-ST elevation (NSTEMI) myocardial infarction (principal); I34.0 Nonrheumatic mitral (valve) insufficiency; I25.119 Atherosclerotic heart disease of native coronary artery with unspecified angina pectoris; I10 Essential (primary) hypertension; E78.5 Hyperlipidemia, unspecified; K44.9 Diaphragmatic hernia without obstruction or gangrene; J10.1 Influenza due to other identified influenza virus with other respiratory manifestations; E03.9 Hypothyroidism, unspecified; H40.9 Unspecified glaucoma; Z82.49 Family history of ischemic heart disease and other diseases of the circulatory system
CPT/HCPCS: 71020; 80048; 80061; 82550; 83735; 84443; 84484; 85002; 85007; 85025; 85027; 85610; 85730; 87804; 92928; 93005; 93306; 93454; C1725; C1769; C1874; C1887; C1893; J1644; J2250; J7030

== ENCOUNTER 2016-11-24 11:44 | Observation (INO) | payer MEDICARE ==
[~2016-11-24] VITALS: Ht 172.7 cm; Wt 82.8 kg
[~2016-11-24 11:44] MED LIST changes: +ATOR20TA15 PO; +Aspirin Chew PO; +DORZ2SOL15 EACH EYE; -HYDR-3533 PO; +LATA0.002 EACH EYE; +LEVO125T4 PO; -LEVO175T19 PO; +LISI10TA3 PO; -LISI30TA44 PO; +METO50TA PO; +OSEL75 PO; +PLAV75TA29 PO; +TEMA15CA PO; -TEMA30CA PO
[2016-11-24 11:47] VITALS: BP 180/79; PULSE 51; RESP 20; TEMP 97.5; O2SAT 98
--- NOTE | 2016-11-24 11:55 | PD ---
Physical Exam Date Seen by Provider: Nov 24, 2016 Time Seen by Provider: 11:50 Narrative Pt is an 81 year old male presenting to the ED with c/o chest pressure, decreased energy. Chest pressure started 3 days after his heart cath 3 weeks ago. Pt reports compliance with medications and feels they aren't agreeing with him. Pain is pressure like, midsternal, 6/10 now, worse prior to O2 administration. Pt was at cardiac rehab today and c/o the pain, he was given supplemental O2 which he states helped relieve the pressure. No N/V. Repots feeling SOB, mild abdominal soreness. 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 Anita Girard is primary. VSS, protocol initiated. Awaiting bed placement. Data Data Last Documented VS Vital Signs Date Time Temp Pulse Resp B/P Pulse Ox O2 Delivery O2 Flow Rate FiO2 11/24/16 11:47 97.5 51 20 180/79 98 Room Air [facility] Supervised Visit with ALANA: Misa Ortega Nov 24, 2016 11:55
[2016-11-24] MEDS ORDERED: SODIUM CHLORIDE 0.9% FLUSH 10 ML FLUSH IVF PRN (12:00)
[2016-11-24 12:50] LABS: AUTOMATED NEUTROPHIL # 4.3 TH/MM3 (1.8-7.7); BASOPHIL # 0.1 TH/MM3 (0-0.2); BASOPHIL % 1.4 % (0.0-2.0); EOSINOPHIL # 0.6 TH/MM3 (0-0.4); EOSINOPHIL % 7.2 % (0.0-4.0); HEMATOCRIT 37.7 % (39.0-51.0); HEMO FLAGS DIFF FINAL; LYMPH % 31.2 % (9.0-44.0); LYMPHOCYTE # 2.6 TH/MM3 (1.0-4.8); MEAN CELL VOLUME 93.5 FL (80.0-100.0); MEAN CORPUSCULAR HEMOGLOBIN 31.1 PG (27.0-34.0); MEAN CORPUSCULAR HGB CONC 33.3 % (32.0-36.0); MONO % 9.4 % (0.0-8.0); NEUT % 50.8 % (16.0-70.0); PLATELET COUNT 164 TH/MM3 (150-450); RED BLOOD COUNT 4.03 MIL/MM3 (4.50-5.90); WHITE BLOOD COUNT 8.5 TH/MM3 (4.0-11.0)
--- NOTE | 2016-11-24 12:58 | RADRPT ---
EXAM DATE/TIME: 11/24/2016 12:26 [place] COMPARISON: CHEST PA & LAT, October 25, 2016, 21:27. INDICATIONS : Chest pain. MEDICAL HISTORY : None. SURGICAL HISTORY : None. ENCOUNTER: Initial ACUITY: 1 day PAIN SCORE: 7/10 LOCATION: Bilateral chest FINDINGS: PA and lateral views of the chest demonstrate the lungs to be symmetrically aerated without evidence of mass, infiltrate or effusion. The cardiomediastinal contours are unremarkable. Osseous structure s are intact. CONCLUSION: The lungs are clear. Chaparro Urban MD on November 24, 2016 at 12:55 Board Certified Radiologist. This report was verified electronically.
[2016-11-24 13:05] LABS: APTT (PATIENT) 25.6 SEC (24.3-30.1); PROTHROMBIN TIME - PATIENT 10.7 SEC (9.8-11.6)
[2016-11-24 13:14] LABS: ALT (GPT) 27 U/L (12-78); ANION GAP 5 MEQ/L (5-15); AST (GOT) 18 U/L (15-37); BICARBONATE 26.2 MEQ/L (21.0-32.0); BLOOD UREA NITROGEN 14 MG/DL (7-18); CHLORIDE 106 MEQ/L (98-107); GLOMERULAR FILTRATION RATE 63 ML/MIN (>89); MAGNESIUM 2.2 MG/DL (1.5-2.5); POTASSIUM 4.4 MEQ/L (3.5-5.1); SODIUM (NA) 137 MEQ/L (136-145)
[2016-11-24 13:17] LABS: ALKALINE PHOSPHATASE 84 U/L (45-117); TOTAL BILIRUBIN ADULT 0.3 MG/DL (0.2-1.0)
[2016-11-24 13:29] LABS: CREATINE KINASE 68 U/L (39-308)
[2016-11-24] MEDS ORDERED: ASPIRIN 81 MG CHEW TAB PO ONE (14:45)
[2016-11-24] MEDS: NITROGLYCERIN 0.4 MG SL 25 TABS/BTL SL SCH ×3 (14:50→15:28)
--- NOTE | 2016-11-24 14:55 | PD ---
HPI Chief Complaint: Chest Pain Time Seen by Provider: 14:24 Travel History International Travel<30 days: No Contact w/Intl Traveler<30days: No Traveled to known affect area: No History of Present Illness HPI Patient is an 81-year-old male with history of hypertension, CAD, who presents to emergency room with complaints of chest pain. Patient reports that he began to have increased chest pressure last night while laying down in bed, reports that he thought that his symptoms would go away if he went to bed. Reports that he woke up this morning still feeling sick. He went to his cardiac rehab center and told them of his sob/chest pressure, reports that they sat him down and took his blood pressure and noted it to be low. Reports that because of his chest pressure, feeling of nausea/sob and mild diaphoresis, he was sent to the ER for evaluation. Patient reports that he was admitted to the hospital on 10/26 and had a cardiac catheterization by Dr. Padilla. Patient reports that he had 99% stenosis of his left circumflex artery which was stented. Patient reports that he has been compliant with his medications [facility] Past Medical History Hx Anticoagulant Therapy: Yes (PLAVIX) Heart Rhythm Problems: No Cardiac Catheterization: No Cardiovascular Problems: Yes (CARDIAC CATH 3 WEEKS AGO/STENTS) High Cholesterol: No Congestive Heart Failure: No Diabetes: No Hiatal Hernia: Yes Hypertension: Yes Inguinal Hernia: Yes Thyroid Disease: Yes Past Surgical History Appendectomy: Yes Coronary Artery Bypass Graft: No Tonsillectomy: Yes Other Surgery: Yes (INGUINAL HERNIA REMOVED ) Social History Alcohol Use: Yes (OCC) Tobacco Use: No Substance Use: No Allergies-Medications (Allergen,Severity, Reaction): Coded Allergies: No Known Allergies (Verified , 10/25/16) Reported Meds & Prescriptions Reported Meds & Active Scripts Active Lisinopril 10 Mg Tab 10 Mg PO DAILY Atorvastatin (Atorvastatin Calcium) 20 Mg Tab 20 Mg PO HS Metoprolol Tartrate 50 Mg Tab 50 Mg PO BID Plavix (Clopidogrel Bisulfate) 75 Mg Tab 75 Mg PO DAILY [Aspirin Chew] 81 MG Chew 81 Mg PO DAILY Tamiflu (Oseltamivir Phosphate) 75 Mg Cap 75 Mg PO BID 3 Days Reported Dorzolamide-Timolol Opth Drops 22.3-6.8 Mg/Ml Soln 1 Drop EACH EYE BID Latanoprost Opth Drops (Latanoprost) 0.005% Drops 1 Drop EACH EYE HS Refrigerate until opened. Temazepam 15 Mg Cap 15 Mg PO HS PRN Levothyroxine (Levothyroxine Sodium) 125 Mcg Tab 150 Mcg PO DAILY Review of Systems General / Constitutional: No: Fever Eyes: No: Visual changes HENT: No: Headaches Cardiovascular: Positive: Chest Pain or Discomfort, Diaphoresis Respiratory: No: Shortness of Breath Gastrointestinal: No: Abdominal Pain Genitourinary: No: Dysuria Musculoskeletal: No: Pain Skin: No Rash Neurologic: No: Weakness Psychiatric: No: Depression Endocrine: No: Polydipsia Hematologic/Lymphatic: No: Easy Bruising Physical Exam Narrative GENERAL: nad, nontoxic SKIN: Focused skin assessment warm/dry. HEAD: Atraumatic. Normocephalic. EYES: Pupils equal and round. No scleral icterus. No injection or drainage. ENT: No nasal bleeding or discharge. Mucous membranes pink and moist. NECK: Trachea midline. No JVD. CARDIOVASCULAR: Regular rate and rhythm. No murmur appreciated. RESPIRATORY: No accessory muscle use. Clear to auscultation. Breath sounds equal bilaterally. GASTROINTESTINAL: Abdomen soft, non-tender, nondistended. Hepatic and splenic margins not palpable. MUSCULOSKELETAL: No obvious deformities. No clubbing. No cyanosis. No edema. NEUROLOGICAL: Awake and alert. No obvious cranial nerve deficits. Motor grossly within normal limits. Normal speech. PSYCHIATRIC: Appropriate mood and affect; insight and judgment normal. Data Data Last Documented VS Vital Signs Date Time Temp Pulse Resp B/P Pulse Ox O2 Delivery O2 Flow Rate FiO2 11/24/16 11:47 97.5 51 20 180/79 98 Room Air Orders Electrocardiogram (11/24/16 11:56) Ckmb (Isoenzyme) Profile (11/24/16 11:56) Complete Blood Count With Diff (11/24/16 11:56) Comprehensive Metabolic Panel (11/24/16 11:56) Magnesium (Mg) (11/24/16 11:56) Prothrombin Time / Inr (Pt) (11/24/16 11:56) Act Partial Throm Time (Ptt) (11/24/16 11:56) Troponin I (11/24/16 11:56) Sodium Chloride 0.9% Flush (Ns Flush) (11/24/16 12:00) Chest, Pa & Lat (11/24/16 11:56) Labs Laboratory Tests Test 11/24/16 12:08 White Blood Count 8.5 TH/MM3 Red Blood Count 4.03 MIL/MM3 Hemoglobin 12.5 GM/DL Hematocrit 37.7 % Mean Corpuscular Volume 93.5 FL Mean Corpuscular Hemoglobin 31.1 PG Mean Corpuscular Hemoglobin 33.3 % Concent Red Cell Distribution Width 14.0 % Platelet Count 164 TH/MM3 Mean Platelet Volume 8.4 FL Neutrophils (%) (Auto) 50.8 % Lymphocytes (%) (Auto) 31.2 % Monocytes (%) (Auto) 9.4 % Eosinophils (%) (Auto) 7.2 % Basophils (%) (Auto) 1.4 % Neutrophils # (Auto) 4.3 TH/MM3 Lymphocytes # (Auto) 2.6 TH/MM3 Monocytes # (Auto) 0.8 TH/MM3 Eosinophils # (Auto) 0.6 TH/MM3 Basophils # (Auto) 0.1 TH/MM3 CBC Comment DIFF FINAL Differential Comment Prothrombin Time 10.7 SEC Prothromb Time International 1.0 RATIO Ratio Activated Partial 25.6 SEC Thromboplast Time Sodium Level 137 MEQ/L Potassium Level 4.4 MEQ/L Chloride Level 106 MEQ/L Carbon Dioxide Level 26.2 MEQ/L Anion Gap 5 MEQ/L Blood Urea Nitrogen 14 MG/DL Creatinine 1.11 MG/DL Estimat Glomerular Filtration 63 ML/MIN Rate Random Glucose 95 MG/DL Calcium Level 9.1 MG/DL Magnesium Level 2.2 MG/DL Total Bilirubin 0.3 MG/DL Aspartate Amino Transf 18 U/L (AST/SGOT) Alanine Aminotransferase 27 U/L (ALT/SGPT) Alkaline Phosphatase 84 U/L Total Creatine Kinase 68 U/L Troponin I LESS THAN 0.02 NG/ML Total Protein 7.2 GM/DL Albumin 3.6 GM/DL MDM Medical Decision Making Medical Screen Exam Complete: Yes Emergency Medical Condition: Yes Interpretation(s) EKG at 1203: Sinus smiley at 48bpm, qt/qtc: 424/389, no acute st seg changes Vital Signs Date Time Temp Pulse Resp B/P Pulse Ox O2 Delivery O2 Flow Rate FiO2 11/24/16 11:47 97.5 51 20 180/79 98 Room Air Laboratory Tests Test 11/24/16 12:08 White Blood Count 8.5 TH/MM3 (4.0-11.0) Red Blood Count 4.03 MIL/MM3 (4.50-5.90) Hemoglobin 12.5 GM/DL (13.0-17.0) Hematocrit 37.7 % (39.0-51.0) Mean Corpuscular Volume 93.5 FL (80.0-100.0) Mean Corpuscular Hemoglobin 31.1 PG (27.0-34.0) Mean Corpuscular Hemoglobin 33.3 % Concent (32.0-36.0) Red Cell Distribution Width 14.0 % (11.6-17.2) Platelet Count 164 TH/MM3 (150-450) Mean Platelet Volume 8.4 FL (7.0-11.0) Neutrophils (%) (Auto) 50.8 % (16.0-70.0) Lymphocytes (%) (Auto) 31.2 % (9.0-44.0) Monocytes (%) (Auto) 9.4 % (0.0-8.0) Eosinophils (%) (Auto) 7.2 % (0.0-4.0) Basophils (%) (Auto) 1.4 % (0.0-2.0) Neutrophils # (Auto) 4.3 TH/MM3 (1.8-7.7) Lymphocytes # (Auto) 2.6 TH/MM3 (1.0-4.8) Monocytes # (Auto) 0.8 TH/MM3 (0-0.9) Eosinophils # (Auto) 0.6 TH/MM3 (0-0.4) Basophils # (Auto) 0.1 TH/MM3 (0-0.2) CBC Comment DIFF FINAL Differential Comment Prothrombin Time 10.7 SEC (9.8-11.6) Prothromb Time International 1.0 RATIO Ratio Activated Partial 25.6 SEC Thromboplast Time (24.3-30.1) Sodium Level 137 MEQ/L (136-145) Potassium Level 4.4 MEQ/L (3.5-5.1) Chloride Level 106 MEQ/L (98-107) Carbon Dioxide Level 26.2 MEQ/L (21.0-32.0) Anion Gap 5 MEQ/L (5-15) Blood Urea Nitrogen 14 MG/DL (7-18) Creatinine 1.11 MG/DL (0.60-1.30) Estimat Glomerular Filtration 63 ML/MIN (>89) Rate Random Glucose 95 MG/DL (74-106) Calcium Level 9.1 MG/DL (8.5-10.1) Magnesium Level 2.2 MG/DL (1.5-2.5) Total Bilirubin 0.3 MG/DL (0.2-1.0) Aspartate Amino Transf 18 U/L (15-37) (AST/SGOT) Alanine Aminotransferase 27 U/L (12-78) (ALT/SGPT) Alkaline Phosphatase 84 U/L (45-117) Total Creatine Kinase 68 U/L (39-308) Troponin I LESS THAN 0.02 NG/ML (0.02-0.05) Total Protein 7.2 GM/DL (6.4-8.2) Albumin 3.6 GM/DL (3.4-5.0) Last Impressions Chest X-Ray 11/24/16 1156 Signed Impressions: Service Date/Time: Thursday, November 24, 2016 12:26 - CONCLUSION: The lungs are clear. Chaparro Urban MD Differential Diagnosis acs, arrhythmia Narrative Course Patient is an 81-year-old male who presents to emergency room with complaints of chest pain. Patient reports that he has been having a pressure to his chest since last night while at rest. Patient reports that he feels little short of breath and diaphoretic with his symptoms, patient reports that his chest pain has persisted to today. He was sent to the ER by the cardiac rehab center for his chest pain as patient was still symptomatic and hypotensive with a systolic blood pressure is in 90s. Patient reports that he had a cardiac catheterization on October 26, 2016. He did have a stent placed to his left circumflex artery which was 99% stenosed by Dr. Padilla. The cardiac catheter also showed of left anterior descending artery which demonstrated 30-40% stenosis in the proximal portion with a second 40-50% stenosis in the midportion. Laboratory Tests Test 11/24/16 12:08 White Blood Count 8.5 TH/MM3 (4.0-11.0) Red Blood Count 4.03 MIL/MM3 (4.50-5.90) Hemoglobin 12.5 GM/DL (13.0-17.0) Hematocrit 37.7 % (39.0-51.0) Mean Corpuscular Volume 93.5 FL (80.0-100.0) Mean Corpuscular Hemoglobin 31.1 PG (27.0-34.0) Mean Corpuscular Hemoglobin 33.3 % Concent (32.0-36.0) Red Cell Distribution Width 14.0 % (11.6-17.2) Platelet Count 164 TH/MM3 (150-450) Mean Platelet Volume 8.4 FL (7.0-11.0) Neutrophils (%) (Auto) 50.8 % (16.0-70.0) Lymphocytes (%) (Auto) 31.2 % (9.0-44.0) Monocytes (%) (Auto) 9.4 % (0.0-8.0) Eosinophils (%) (Auto) 7.2 % (0.0-4.0) Basophils (%) (Auto) 1.4 % (0.0-2.0) Neutrophils # (Auto) 4.3 TH/MM3 (1.8-7.7) Lymphocytes # (Auto) 2.6 TH/MM3 (1.0-4.8) Monocytes # (Auto) 0.8 TH/MM3 (0-0.9) Eosinophils # (Auto) 0.6 TH/MM3 (0-0.4) Basophils # (Auto) 0.1 TH/MM3 (0-0.2) CBC Comment DIFF FINAL Differential Comment Prothrombin Time 10.7 SEC (9.8-11.6) Prothromb Time International 1.0 RATIO Ratio Activated Partial 25.6 SEC Thromboplast Time (24.3-30.1) Sodium Level 137 MEQ/L (136-145) Potassium Level 4.4 MEQ/L (3.5-5.1) Chloride Level 106 MEQ/L (98-107) Carbon Dioxide Level 26.2 MEQ/L (21.0-32.0) Anion Gap 5 MEQ/L (5-15) Blood Urea Nitrogen 14 MG/DL (7-18) Creatinine 1.11 MG/DL (0.60-1.30) Estimat Glomerular Filtration 63 ML/MIN (>89) Rate Random Glucose 95 MG/DL (74-106) Calcium Level 9.1 MG/DL (8.5-10.1) Magnesium Level 2.2 MG/DL (1.5-2.5) Total Bilirubin 0.3 MG/DL (0.2-1.0) Aspartate Amino Transf 18 U/L (15-37) (AST/SGOT) Alanine Aminotransferase 27 U/L (12-78) (ALT/SGPT) Alkaline Phosphatase 84 U/L (45-117) Total Creatine Kinase 68 U/L (39-308) Troponin I LESS THAN 0.02 NG/ML (0.02-0.05) Total Protein 7.2 GM/DL (6.4-8.2) Albumin 3.6 GM/DL (3.4-5.0) Last Impressions Chest X-Ray 11/24/16 1156 Signed Impressions: Service Date/Time: Thursday, November 24, 2016 12:26 - CONCLUSION: The lungs are clear. Chaparro Urban MD Case reviewed with Dr. Padilla who will see patient in consult Case reviewed with Dr. Julien who accepts pt to service Diagnosis Primary Impression: Chest pain Qualified Code: R07.9 - Chest pain, unspecified type Admitting Information Admitting Physician Requests: Observation Mouna Sanchez DO Nov 24, 2016 14:55
[2016-11-24] MEDS ORDERED: SODIUM CHLORIDE 0.9% FLUSH 10 ML FLUSH IV FLUSH PRN (15:30)
[2016-11-24] MEDS ORDERED: ONDANSETRON HCL 4 MG/2 ML VIAL IV PRN (15:30)
[2016-11-24] MEDS ORDERED: ACETAMINOPHEN/HYDROcodone 325 MG/7.5 MG TAB PO PRN (15:30)
[2016-11-24] MEDS ORDERED: ACETAMINOPHEN 500 MG CPLT PO PRN (15:30)
[2016-11-24] MEDS ORDERED: NITROGLYCERIN 0.4 MG SL 25 TABS/BTL SL PRN (15:30)
[2016-11-24] MEDS ORDERED: MORPHINE SULFATE 4 MG/ML INJ IV PRN ×2 (15:30→19:30)
[2016-11-24 15:33] VITALS: BP 160/67; PULSE 57; RESP 16; O2SAT 96
--- NOTE | 2016-11-24 16:12 | HHI.HP ---
HPI Service CP Hospitalists Primary Care Physician Joy Nolasco MD Admission Diagnosis chest pain Chief Complaint: cp Travel History International Travel<30 Days: No Contact w/Intl Traveler <30 Da: No Traveled to Known Affected Are: No History of Present Illness Pt is 81 yo with cad, keri left cx after nstemi last month. Pt had some substernal chest pressure last night. It continued this morning at cardiac rehab and he had some diaphoresis and felt like he would pass out. he came to ED and had some relief from 8/10 down to 3/10 pain with ntg. Pt seen by cardiology and cardiac meds initiated. Review of Systems Other lower cp/epigastric pressure Past Family Social History Past Medical History HTN cad. [facility] with keri left cx 10/22. sp nstemi influenza hypothyroidism Glaucoma T&A Appy Reported Medications Lisinopril 10 Mg Tab 10 Mg PO DAILY Atorvastatin (Atorvastatin Calcium) 20 Mg Tab 20 Mg PO HS Metoprolol Tartrate 50 Mg Tab 50 Mg PO BID Plavix (Clopidogrel Bisulfate) 75 Mg Tab 75 Mg PO DAILY [Aspirin Chew] 81 MG Chew 81 Mg PO DAILY Dorzolamide-Timolol Opth Drops 22.3-6.8 Mg/Ml Soln 1 Drop EACH EYE BID Latanoprost Opth Drops (Latanoprost) 0.005% Drops 1 Drop EACH EYE HS Refrigerate until opened. Temazepam 15 Mg Cap 15 Mg PO HS PRN Levothyroxine (Levothyroxine Sodium) 125 Mcg Tab 150 Mcg PO DAILY Allergies: Coded Allergies: No Known Allergies (Verified , 10/25/16) Family History father 50s of SD Social History No tobacco 1-2 drinks twice a week retired [employer] from [place] Physical Exam Vital Signs heent neg heart reg lung cta abd s/nt ext no edema Vital Signs Date Time Temp Pulse Resp B/P Pulse Ox O2 Delivery O2 Flow Rate FiO2 11/24/16 15:33 57 16 160/67 96 Room Air 11/24/16 15:29 99 Room Air 11/24/16 11:47 97.5 51 20 180/79 98 Room Air Laboratory Laboratory Tests Test 11/24/16 12:08 White Blood Count 8.5 Red Blood Count 4.03 Hemoglobin 12.5 Hematocrit 37.7 Mean Corpuscular Volume 93.5 Mean Corpuscular Hemoglobin 31.1 Mean Corpuscular Hemoglobin 33.3 Concent Red Cell Distribution Width 14.0 Platelet Count 164 Mean Platelet Volume 8.4 Neutrophils (%) (Auto) 50.8 Lymphocytes (%) (Auto) 31.2 Monocytes (%) (Auto) 9.4 Eosinophils (%) (Auto) 7.2 Basophils (%) (Auto) 1.4 Neutrophils # (Auto) 4.3 Lymphocytes # (Auto) 2.6 Monocytes # (Auto) 0.8 Eosinophils # (Auto) 0.6 Basophils # (Auto) 0.1 CBC Comment DIFF FINAL Differential Comment Prothrombin Time 10.7 Prothromb Time International 1.0 Ratio Activated Partial 25.6 Thromboplast Time Sodium Level 137 Potassium Level 4.4 Chloride Level 106 Carbon Dioxide Level 26.2 Anion Gap 5 Blood Urea Nitrogen 14 Creatinine 1.11 Estimat Glomerular Filtration 63 Rate Random Glucose 95 Calcium Level 9.1 Magnesium Level 2.2 Total Bilirubin 0.3 Aspartate Amino Transf 18 (AST/SGOT) Alanine Aminotransferase 27 (ALT/SGPT) Alkaline Phosphatase 84 Total Creatine Kinase 68 Troponin I LESS THAN 0.02 Total Protein 7.2 Albumin 3.6 Result Diagram: 11/24/16 1208 11/24/16 1208 Assessment and Plan Problem List: (1) Chest pain Status: Acute Plan: Pt with nstemi and left cx stent last month presents with chest pressure concerning for ACS seen by cardiology bb/liset/statin/asa/plavix cont lovenox and nitro ordered. tele and ce's resume other home meds. (2) CAD (coronary artery disease) Status: Chronic Plan: see above (3) Hypothyroid Status: Chronic Plan: see above (4) Hypertension Status: Chronic Plan: see above Problem Qualifiers (1) Chest pain: Qualified Code: R07.9 - Chest pain, unspecified type Valeriano Hardy MD Nov 24, 2016 16:12
[2016-11-24] MEDS ORDERED: ASPI1TAB91 PO (16:13)
[2016-11-24] MEDS ORDERED: TEMAZEPAM 15 MG CAP PO PRN (16:15)
[2016-11-24 16:24] LABS: CREATINE KINASE 74 U/L (39-308)
[2016-11-24 17:16] VITALS: BP 195/74; PULSE 48; RESP 18; TEMP 97.8; O2SAT 97
[2016-11-24] MEDS ORDERED: cloNIDine HCL 0.1 MG TAB PO PRN (17:30)
[2016-11-24 17:31] VITALS: BP 180/78; PULSE 47
[2016-11-24] MEDS: ENOXAPARIN SODIUM 80 MG/0.8 ML SYRINGE SQ SCH (17:47)
[2016-11-24] MEDS: NITROGLYCERIN 2% OINT 1 GM PACKET TOPICAL SCH (17:47)
--- NOTE | 2016-11-24 18:27 | MB ---
cc: ALICIA CANALES MD DATE OF CONSULTATION: 11/24/2016 REASON FOR CONSULTATION: HISTORY OF PRESENT ILLNESS: This is a 89-year-old gentleman who presents to the hospital with chest discomfort. He has a history of coronary artery disease and underwent angioplasty of his left circumflex approximately 3 weeks ago. He did well for a khsk-ekv-[id number]-half or two weeks but over the last lzki-nfo-[id number]-half to two weeks he has noted recurrence of his chest tightness. This has occurred with and without exertion and last night, lasted approximately all night. It was especially bad. He came to the hospital this morning. His electrocardiogram was unremarkable. Initial troponin is within normal limits. On catheterization, he did have approximately 50 to 60% stenosis in the mid LAD which was not angioplastied at the time. He is currently resting comfortably, although complains of some mild chest discomfort. He noted some mild nausea as well as some mild abdominal pain accompanying his chest tightness. PAST MEDICAL HISTORY: Otherwise been significant for appendectomy, hernias in the past. SOCIAL HISTORY: He does not smoke. He does use alcohol on occasion. ALLERGIES: NONE. MEDICATIONS AT HOME: 1. Lisinopril 10 milligrams daily. 2. Atorvastatin 20 at hs. 3. Metoprolol 50 twice a day. 4. Plavix 75 daily. 5. Aspirin 81 daily. 6. Temazepam. 7. Levothyroxine PHYSICAL EXAMINATION: He is awake, alert, no acute distress. VITAL SIGNS: Blood pressure is 160/70, pulse is 70 and regular. Neck: There is no neck vein distension. Carotids are normal. Lungs: Clear. Cardiovascular: Reveals a regular rate and rhythm. There is no murmur or gallop noted. Abdomen: Mildly tender to palpation. ASSESSMENT: The patient has had recurrence of chest discomfort. It is certainly possible that he has had either recent episode of circumflex or possibly progression of the disease in his LAD. We will empirically begin some Lovenox and nitro paste in an effort to help relieve his discomfort. Await further enzymes and EKGs in the morning. MD CORAZON Owusu/RADHA /3:57 PM /6:13 PM
[2016-11-24 19:40] VITALS: BP 106/50; PULSE 71; RESP 18; TEMP 96.5; O2SAT 97
[2016-11-24] MEDS: SODIUM CHLORIDE 0.9% FLUSH 10 ML FLUSH IV FLUSH SCH (21:00)
[2016-11-24] MEDS: LATANOPROST 0.005% OPHT SOLN 2.5 ML BTL EACH EYE SCH (21:00)
[2016-11-24] MEDS: DORZOLAMIDE/TIMOLOL OPTH SOLN 10 ML BTL EACH EYE SCH (21:00)
[2016-11-24] MEDS: METOPROLOL TARTRATE 50 MG TAB PO SCH (21:57)
[2016-11-24 23:23] LABS: CREATINE KINASE 50 U/L (39-308)
[2016-11-25] VITALS (16 sets, daily range): BP systolic 94–171; BP diastolic 53–80; PULSE 55–83; RESP 18–20; TEMP 96.2–98.6; O2SAT 95–100
[2016-11-25] MEDS: ENOXAPARIN SODIUM 80 MG/0.8 ML SYRINGE SQ SCH (05:00)
[2016-11-25] MEDS: LEVOTHYROXINE SODIUM 150 MCG TAB PO SCH (05:58)
[2016-11-25] MEDS: NITROGLYCERIN 2% OINT 1 GM PACKET TOPICAL SCH ×3 (05:58→18:00)
--- NOTE | 2016-11-25 07:38 | PD.CARD.PN ---
Subjective Subjective Remarks Patient with on and off chest pressure last night. feels well now. Objective Vital Signs / I&O Vital Signs Date Time Temp Pulse Resp B/P Pulse Ox O2 Delivery O2 Flow Rate FiO2 11/25/16 03:59 98.6 55 18 137/60 96 11/25/16 03:15 21 11/25/16 01:07 80 11/25/16 00:18 97.9 57 20 94/53 96 11/24/16 19:40 96.5 71 18 106/50 97 11/24/16 17:31 47 180/78 11/24/16 17:16 97.8 48 18 195/74 97 11/24/16 15:33 57 16 160/67 96 Room Air 11/24/16 15:29 99 Room Air 11/24/16 11:47 97.5 51 20 180/79 98 Room Air I/O 11/24/16 11/24/16 11/24/16 11/25/16 11/25/16 11/25/16 07:00 15:00 23:00 07:00 15:00 23:00 Output Total 400 ml Balance -400 ml Output Urine Total 400 ml Physical Exam Lungs clear RRR Laboratory Laboratory Tests Test 11/24/16 11/24/16 11/24/16 11/25/16 12:08 15:00 22:37 04:00 White Blood Count 8.5 TH/MM3 Red Blood Count 4.03 MIL/MM3 Hemoglobin 12.5 GM/DL Hematocrit 37.7 % Mean Corpuscular Volume 93.5 FL Mean Corpuscular Hemoglobin 31.1 PG Mean Corpuscular Hemoglobin 33.3 % Concent Red Cell Distribution Width 14.0 % Platelet Count 164 TH/MM3 Mean Platelet Volume 8.4 FL Neutrophils (%) (Auto) 50.8 % Lymphocytes (%) (Auto) 31.2 % Monocytes (%) (Auto) 9.4 % Eosinophils (%) (Auto) 7.2 % Basophils (%) (Auto) 1.4 % Neutrophils # (Auto) 4.3 TH/MM3 Lymphocytes # (Auto) 2.6 TH/MM3 Monocytes # (Auto) 0.8 TH/MM3 Eosinophils # (Auto) 0.6 TH/MM3 Basophils # (Auto) 0.1 TH/MM3 CBC Comment DIFF FINAL Differential Comment Prothrombin Time 10.7 SEC Prothromb Time International 1.0 RATIO Ratio Activated Partial 25.6 SEC Thromboplast Time Sodium Level 137 MEQ/L Potassium Level 4.4 MEQ/L Chloride Level 106 MEQ/L Carbon Dioxide Level 26.2 MEQ/L Anion Gap 5 MEQ/L Blood Urea Nitrogen 14 MG/DL Creatinine 1.11 MG/DL Estimat Glomerular Filtration 63 ML/MIN Rate Random Glucose 95 MG/DL Calcium Level 9.1 MG/DL Magnesium Level 2.2 MG/DL Total Bilirubin 0.3 MG/DL Aspartate Amino Transf 18 U/L (AST/SGOT) Alanine Aminotransferase 27 U/L (ALT/SGPT) Alkaline Phosphatase 84 U/L Total Creatine Kinase 68 U/L 74 U/L 50 U/L Troponin I LESS THAN 0.02 LESS THAN 0.02 LESS THAN 0.02 LESS THAN 0.02 NG/ML NG/ML NG/ML NG/ML Total Protein 7.2 GM/DL Albumin 3.6 GM/DL Assessment and Plan Assessment and Plan Chest tightness concerning for ischemia even though troponins are negative. Will plan repeat cath to r/o possible restenosis or progression of LAD lesion Chris Padilla MD Nov 25, 2016 07:38
[2016-11-25] MEDS: CLOPIDOGREL 75 MG TAB PO SCH (07:43)
[2016-11-25] MEDS: METOPROLOL TARTRATE 50 MG TAB PO SCH ×3 (07:43→21:14)
[2016-11-25] MEDS: DORZOLAMIDE/TIMOLOL OPTH SOLN 10 ML BTL EACH EYE SCH ×2 (07:44→21:00)
[2016-11-25] MEDS: ATORVASTATIN 80 MG TAB PO SCH (07:44)
[2016-11-25] MEDS: SODIUM CHLORIDE 0.9% FLUSH 10 ML FLUSH IV FLUSH SCH ×2 (07:44→21:14)
[2016-11-25] MEDS: LISINOPRIL 10 MG TAB PO SCH (07:44)
[2016-11-25] MEDS: ASPIRIN 81 MG CHEW TAB PO SCH (07:45)
--- NOTE | 2016-11-25 08:26 | HHI.PR ---
Subjective Remarks seen in pacu Objective Vitals heent neg heart reg lung cta abd s/nt ext no edema Vital Signs Date Time Temp Pulse Resp B/P Pulse Ox O2 Delivery O2 Flow Rate FiO2 11/25/16 08:06 96.2 66 18 99/53 95 11/25/16 03:59 98.6 55 18 137/60 96 11/25/16 03:15 21 11/25/16 01:07 80 11/25/16 00:18 97.9 57 20 94/53 96 11/24/16 19:40 96.5 71 18 106/50 97 11/24/16 17:31 47 180/78 11/24/16 17:16 97.8 48 18 195/74 97 11/24/16 15:33 57 16 160/67 96 Room Air 11/24/16 15:29 99 Room Air 11/24/16 11:47 97.5 51 20 180/79 98 Room Air 11/24/16 11/24/16 11/25/16 15:00 23:00 07:00 Output Total 400 ml Balance -400 ml Output Urine Total 400 ml Result Diagram: 11/24/16 1208 11/24/16 1208 Other Results Laboratory Tests Test 11/24/16 11/24/16 11/24/16 11/25/16 12:08 15:00 22:37 04:00 White Blood Count 8.5 TH/MM3 Red Blood Count 4.03 MIL/MM3 Hemoglobin 12.5 GM/DL Hematocrit 37.7 % Mean Corpuscular Volume 93.5 FL Mean Corpuscular Hemoglobin 31.1 PG Mean Corpuscular Hemoglobin 33.3 % Concent Red Cell Distribution Width 14.0 % Platelet Count 164 TH/MM3 Mean Platelet Volume 8.4 FL Neutrophils (%) (Auto) 50.8 % Lymphocytes (%) (Auto) 31.2 % Monocytes (%) (Auto) 9.4 % Eosinophils (%) (Auto) 7.2 % Basophils (%) (Auto) 1.4 % Neutrophils # (Auto) 4.3 TH/MM3 Lymphocytes # (Auto) 2.6 TH/MM3 Monocytes # (Auto) 0.8 TH/MM3 Eosinophils # (Auto) 0.6 TH/MM3 Basophils # (Auto) 0.1 TH/MM3 CBC Comment DIFF FINAL Differential Comment Prothrombin Time 10.7 SEC Prothromb Time International 1.0 RATIO Ratio Activated Partial 25.6 SEC Thromboplast Time Sodium Level 137 MEQ/L Potassium Level 4.4 MEQ/L Chloride Level 106 MEQ/L Carbon Dioxide Level 26.2 MEQ/L Anion Gap 5 MEQ/L Blood Urea Nitrogen 14 MG/DL Creatinine 1.11 MG/DL Estimat Glomerular Filtration 63 ML/MIN Rate Random Glucose 95 MG/DL Calcium Level 9.1 MG/DL Magnesium Level 2.2 MG/DL Total Bilirubin 0.3 MG/DL Aspartate Amino Transf 18 U/L (AST/SGOT) Alanine Aminotransferase 27 U/L (ALT/SGPT) Alkaline Phosphatase 84 U/L Total Creatine Kinase 68 U/L 74 U/L 50 U/L Troponin I LESS THAN 0.02 LESS THAN 0.02 LESS THAN 0.02 LESS THAN 0.02 NG/ML NG/ML NG/ML NG/ML Total Protein 7.2 GM/DL Albumin 3.6 GM/DL Imaging Last Impressions Chest X-Ray 11/24/16 1156 Signed Impressions: Service Date/Time: Thursday, November 24, 2016 12:26 - CONCLUSION: The lungs are clear. Chaparro Urban MD A/P Problem List: (1) Chest pain Status: Acute Plan: - Pt with hx of recent NSTEMI and Left cx was stented last month - He presented to the ED with chest pressure concerning for ACS - Cardiology is following. - CE are negative - Pt is planned for [facility] this afternoon to r/o possible restenosis or progression of LAD lesion - Cont. BB/FELIX/Statin/ASA/Plavix - Lovenox and nitro ordered. - Telemetry - Cont. other home meds. (2) CAD (coronary artery disease) Status: Chronic Plan: - See above (3) Hypothyroid Status: Chronic Plan: - See above (4) Hypertension Status: Chronic Plan: - See above Assessment and Plan Patient examined. Assessment and plan formulated with Mouna Hackett PA-C. I agree with the above. s/p LHC. 2 more stents in lad. cont cardiac meds and plan for d/c tomorrow Problem Qualifiers (1) Chest pain: Qualified Code: R07.9 - Chest pain, unspecified type Mouna Hackett Nov 25, 2016 08:26 Valeriano Hardy MD Nov 25, 2016 16:19
[2016-11-25] MEDS ORDERED: MIDAZOLAM HCL 2 MG/2 ML VIAL ONE (12:19)
[2016-11-25] MEDS ORDERED: HEPARIN-NS/PF INJ 500 ML ONE (12:19)
--- NOTE | 2016-11-25 12:24 | EKG ---
Date Performed: 11/24/2016 Time Performed: 12:03:28 PTAGE: 81 years EKG: SINUS BRADYCARDIA BORDERLINE ECG Compared to prior tracing no significant change PREVIOUS TRACING : 10/27/2016 06.58 DOCTOR: Chris Padilla Interpretating Date/Time 11/25/2016 12:23:51
--- NOTE | 2016-11-25 12:24 | EKG ---
Date Performed: 11/24/2016 Time Performed: 18:42:10 PTAGE: 81 years EKG: Sinus rhythm WITH MARKED SINUS ARRHYTHMIA MARKED LEFT AXIS DEVIATION MODERATE ST DEPRESSION ABNORMAL ECG Compared to prior tracing no significant change PREVIOUS TRACING : 11/24/2016 12.03 DOCTOR: Chris Padilla Interpretating Date/Time 11/25/2016 12:23:43
[2016-11-25] MEDS ORDERED: NITROGLYCERIN INJ 5 ML ONE (12:37)
[2016-11-25] MEDS ORDERED: HEPARIN SODIUM - IV 10,000 UNITS/10 ML VIAL ONE (12:37)
[2016-11-25] MEDS ORDERED: NITROGLYCERIN 400 MCG/SPRAY 4.9 GM BOTTLE SL ONE (12:57)
[2016-11-25] MEDS ORDERED: SODIUM CHLORIDE 0.9% FLUSH 10 ML FLUSH IV FLUSH PRN (13:15)
[2016-11-25] MEDS ORDERED: MISC INFORMATION XX ONE (13:15)
[2016-11-25] MEDS: SODIUM CHLOR 0.9% 1000 ML INJ 1,000 ML IV SCH (14:00)
[2016-11-25] MEDS ORDERED: IOHEXOL 350 MG/ML 100 ML BTL (for Cath Lab) OTHER ONE (16:45)
[2016-11-25] MEDS ORDERED: IOHEXOL 350 MG/ML 50 ML BTL (for Cath Lab) OTHER ONE (16:45)
[2016-11-25] MEDS: LATANOPROST 0.005% OPHT SOLN 2.5 ML BTL EACH EYE SCH (21:32)
[2016-11-26] VITALS (14 sets, daily range): BP systolic 115–118; BP diastolic 59–80; PULSE 56–78; RESP 16–20; TEMP 98.6; O2SAT 96–97
[2016-11-26] MEDS: NITROGLYCERIN 2% OINT 1 GM PACKET TOPICAL SCH ×2 (00:04→05:42)
[2016-11-26] MEDS: SODIUM CHLOR 0.9% 1000 ML INJ 1,000 ML IV SCH ×2 (04:00)
[2016-11-26] MEDS: LEVOTHYROXINE SODIUM 150 MCG TAB PO SCH (05:42)
--- NOTE | 2016-11-26 07:52 | PD.CARD.PN ---
Subjective Subjective Remarks Doing well. Objective Vital Signs / I&O Vital Signs Date Time Temp Pulse Resp B/P Pulse Ox O2 Delivery O2 Flow Rate FiO2 11/26/16 06:00 70 11/26/16 05:00 60 11/26/16 04:00 62 11/26/16 03:08 98.6 64 20 115/59 96 11/26/16 03:00 56 11/26/16 02:00 68 11/26/16 01:00 74 11/26/16 00:00 74 11/25/16 23:57 98.5 75 20 131/69 99 11/25/16 23:00 82 11/25/16 23:00 78 20 115/63 97 11/25/16 22:00 80 20 113/62 97 11/25/16 22:00 80 11/25/16 21:24 97 11/25/16 21:00 81 11/25/16 21:00 81 20 132/62 98 11/25/16 20:30 83 20 130/68 99 11/25/16 20:00 79 20 129/64 99 11/25/16 20:00 79 11/25/16 19:30 78 20 171/78 100 11/25/16 19:15 76 20 141/80 100 11/25/16 19:00 76 11/25/16 19:00 97.9 77 20 123/67 97 11/25/16 18:30 98.2 79 18 134/75 98 11/25/16 13:36 96 Room Air 11/25/16 08:06 96.2 66 18 99/53 95 11/25/16 08:05 67 I/O 11/25/16 11/25/16 11/25/16 11/26/16 11/26/16 11/26/16 07:00 15:00 23:00 07:00 15:00 23:00 Intake Total 1880 ml Output Total 400 ml 600 ml 700 ml Balance -400 ml -600 ml 1180 ml Intake Oral 680 ml IV Total 1200 ml Output Urine Total 400 ml 600 ml 700 ml # Voids 1 # Bowel Movements 1 Physical Exam Lungs clear RRR Laboratory Laboratory Tests Test 11/25/16 09:42 Troponin I LESS THAN 0.02 NG/ML Assessment and Plan Assessment and Plan In stent stenosis opened and LAD lesion stented. OK to D/c home on present regimern. F/U my office one week. Diet and activity discussed Chris Padilla MD Nov 26, 2016 07:52
--- NOTE | 2016-11-26 08:19 | HHI.PR ---
Subjective Remarks doing great. Objective Vitals heart reg lung cta abd s/nt ext no edema Vital Signs Date Time Temp Pulse Resp B/P Pulse Ox O2 Delivery O2 Flow Rate FiO2 11/26/16 06:00 70 11/26/16 05:00 60 11/26/16 04:00 62 11/26/16 03:08 98.6 64 20 115/59 96 11/26/16 03:00 56 11/26/16 02:00 68 11/26/16 01:00 74 11/26/16 00:00 74 11/25/16 23:57 98.5 75 20 131/69 99 11/25/16 23:00 82 11/25/16 23:00 78 20 115/63 97 11/25/16 22:00 80 20 113/62 97 11/25/16 22:00 80 11/25/16 21:24 97 11/25/16 21:00 81 11/25/16 21:00 81 20 132/62 98 11/25/16 20:30 83 20 130/68 99 11/25/16 20:00 79 20 129/64 99 11/25/16 20:00 79 11/25/16 19:30 78 20 171/78 100 11/25/16 19:15 76 20 141/80 100 11/25/16 19:00 76 11/25/16 19:00 97.9 77 20 123/67 97 11/25/16 18:30 98.2 79 18 134/75 98 11/25/16 13:36 96 Room Air 11/25/16 11/25/16 11/26/16 14:59 22:59 06:59 Intake Total 1880 ml Output Total 600 ml 700 ml Balance -600 ml 1180 ml Intake Oral 680 ml IV Total 1200 ml Output Urine Total 600 ml 700 ml # Voids 1 # Bowel Movements 1 Result Diagram: 11/24/16 1208 11/24/16 1208 Imaging Last Impressions Chest X-Ray 11/24/16 1156 Signed Impressions: Service Date/Time: Thursday, November 24, 2016 12:26 - CONCLUSION: The lungs are clear. Chaparro Urban MD A/P Problem List: (1) Chest pain Status: Acute Plan: - Pt with hx of recent NSTEMI and Left cx was stented last month - He presented to the ED with chest pressure concerning for [facility] -[facility] revealed in stent restenosis left cx adn 2 75% lad lesions. balloon angioplasty to left cx and 2 new stents LAD d/c home today on current rx regimen f/u cardiology (2) CAD (coronary artery disease) Status: Chronic Plan: - See above (3) Hypothyroid Status: Chronic Plan: - See above (4) Hypertension Status: Chronic Plan: - See above Problem Qualifiers (1) Chest pain: Qualified Code: R07.9 - Chest pain, unspecified type Valeriano Hardy MD Nov 26, 2016 08:19
--- NOTE | 2016-11-26 08:20 | HHI.DCPOC ---
Discharge Care Plan Diagnosis: (1) CAD (coronary artery disease) (2) Hypertension (3) Hypothyroid Goals to Promote Your Health * To prevent worsening of your condition and complications * To maintain your health at the optimal level Directions to Meet Your Goals Take your medications as prescribed Follow your dietary instruction Follow activity as directed Keep your appointments as scheduled Take your immunizations and boosters as scheduled If your symptoms worsen call your PCP, if no PCP go to Urgent Care Center or Emergency Room Smoking is Dangerous to Your Health. Avoid second hand smoke Call the 24-hour hour crisis hotline for domestic abuse at Valeriano Hardy MD Nov 26, 2016 08:20
--- NOTE | 2016-11-26 08:37 | MA ---
cc: ALICIA CANALES MD DATE 11/25/2016 PROCEDURAL STATEMENT The patient's prepped and draped in the usual fashion. A six sheath was inserted percutaneously into the left femoral artery. Angiography was performed with Tyron L5 catheter. RESULTS Aortic pressure was 120/70. CORONARY ANGIOGRAPHY The left main coronary demonstrated a 30% stenosis in its distal portion. The left anterior descending artery again demonstrated a stenosis in the midportion. This appeared to be somewhat worse than previously with an estimated stenosis of 75%. The left circumflex artery in the previously stented area demonstrated an in-stent stenosis in the midportion of the stent compromising the lumen by approximately 75%. The distal portion of the artery was normal. The right coronary was not examined. A Tyron four guide was then substituted for the diagnostic catheter and heparin was administered with an ACT of 311 seconds. A Prowater wire was advanced into the distal circumflex and a balloon angioplasty was carried out in the in-stent stenosis with a 4.0 x 12 mm balloon with inflations to 14 atmospheres. This resulted in a very good cosmetic result with essential zero residual. MARIANNA-III flow was present both pre and post procedure. It was felt that the anterior descending lesion had also progressed since his previous study and was felt to possibly be the culprit for his discomfort. The Prowater wire was redirected down the LAD and primary stenting was accomplished with a 2.5 x 12-mm drug-eluting stent to 12 atmospheres which resulted in a good cosmetic result, however, there did appear to be a small edge dissection with stenosis of approximately 40-50% at the proximal portion of the stent. A second 2.5 x 12 mm stent was positioned generally overlapping the previous stent again with post-dilatation to 14 atmospheres resulting in a very good cosmetic result. No MARIANNA-III flow was present both pre and post dilatation. The equipment was withdrawn. The sheath was sutured in place and the patient left the room in good condition. CONCLUSIONS Successful PTCA and stenting of the anterior descending artery with angioplasty of an in-stent stenosis of the left circumflex. MD CORAZON Owusu/CARMEN /7:49 AM /8:26 AM
[2016-11-26] MEDS: ATORVASTATIN 80 MG TAB PO SCH (08:41)
[2016-11-26] MEDS: LISINOPRIL 10 MG TAB PO SCH (08:41)
[2016-11-26] MEDS: CLOPIDOGREL 75 MG TAB PO SCH (08:41)
[2016-11-26] MEDS: METOPROLOL TARTRATE 50 MG TAB PO SCH (08:41)
[2016-11-26] MEDS: DORZOLAMIDE/TIMOLOL OPTH SOLN 10 ML BTL EACH EYE SCH (08:41)
[2016-11-26] MEDS: ASPIRIN 81 MG CHEW TAB PO SCH (08:41)
[2016-11-26] MEDS: SODIUM CHLORIDE 0.9% FLUSH 10 ML FLUSH IV FLUSH SCH (08:42)
== END 2016-11-26 11:01 | disposition home or self-care (01) ==
LOC: NEPC 11:44 → NEDA 14:57 → NEPHCDU 16:44 → HCIS 11-25 13:00 → HCIN 11-25 16:24
PROVIDERS: ADMIT Hospitalist; ATTEND Hospitalist
DX: R07.9 Chest pain, unspecified (principal); R06.02 Shortness of breath; I25.10 Atherosclerotic heart disease of native coronary artery without angina pectoris; I10 Essential (primary) hypertension; R11.0 Nausea; R61 Generalized hyperhidrosis; Z79.01 Long term (current) use of anticoagulants; K44.9 Diaphragmatic hernia without obstruction or gangrene; Z79.899 Other long term (current) drug therapy; I95.9 Hypotension, unspecified; I25.2 Old myocardial infarction; E03.9 Hypothyroidism, unspecified; T82.855A Stenosis of coronary artery stent, initial encounter; R00.1 Bradycardia, unspecified; R94.31 Abnormal electrocardiogram [ECG] [EKG]
CPT/HCPCS: 71020; 80053; 82550; 83735; 84484; 85002; 85025; 85347; 85610; 85730; 92920; 92928; 93005; 93454; 99285; C1725; C1769; C1874; C1887; C1893; G0378; J1644; J1650; J2250; J7030; Q9967

== ENCOUNTER 2016-12-13 06:18 | Day surgery (SDC) | payer MEDICARE ==
[~2016-12-13] VITALS: Ht 172.7 cm; Wt 83.6 kg
[~2016-12-13 06:18] MED LIST changes: +ASPI1TAB91 PO; -Aspirin Chew PO; -OSEL75 PO
[2016-12-13 07:23] VITALS: BP 158/70; PULSE 48; RESP 18; TEMP 98.1; O2SAT 100
[2016-12-13] MEDS ORDERED: HEPARIN-NS/PF INJ 500 ML ONE (08:22)
[2016-12-13] MEDS ORDERED: MIDAZOLAM HCL 2 MG/2 ML VIAL ONE (08:25)
[2016-12-13] MEDS ORDERED: METOCLOPRAMIDE HCL 10 MG/2 ML VIAL IV PRN (09:00)
[2016-12-13] MEDS ORDERED: LIDOCAINE HCL 1% 50 ML VIAL INFIL PRN (09:00)
[2016-12-13] MEDS ORDERED: ATROPINE SULFATE 1 MG/ML VIAL IV PRN (09:00)
[2016-12-13] MEDS ORDERED: MISC INFORMATION XX ONE (09:00)
[2016-12-13] MEDS ORDERED: LORazepam 2 MG/ML VIAL IV PRN (09:00)
[2016-12-13] MEDS ORDERED: SODIUM CHLOR 0.9% 250 ML INJ 250 ML IV PRN (09:00)
[2016-12-13] MEDS ORDERED: SODIUM CHLORIDE 0.9% FLUSH 10 ML FLUSH IV FLUSH SCH (09:00)
[2016-12-13] MEDS ORDERED: SODIUM CHLORIDE 0.9% FLUSH 10 ML FLUSH IV FLUSH PRN (09:00)
[2016-12-13] MEDS ORDERED: ONDANSETRON HCL 4 MG/2 ML VIAL IV PRN (09:00)
[2016-12-13] MEDS ORDERED: BACITRACIN OINT 0.9 GM PKT TOP ONE (09:00)
--- NOTE | 2016-12-13 09:00 | CATHPROC ---
Patient Name: HAWA YEE Study #: [id number] Initial MD: Chris Padilla Date of : 1935 Study Date: 12/13/2016 Cardiac Catheterization Report 12/13/2016 8:59:38 AM Financial #: [id number] 1 of 9 Patient Name: HAWA YEE Study #: [id number] Initial MD: Chris Padilla Date of : 1935 Study Date: 12/13/2016 Entire Case Report Patient Information Patient Name HAWA YEE Date of 1935 Age 81 years Financial # [id number] Gender M AlternateID Lab Number 3 Accession # Room Number Height (in) 68.0 Height (cm) 172.7 BSA 1.97 Weight (lbs) 183.9 Weight (kg) 83.6 Patient Address/Phone Number Home Address [facility] Home Phone Number [phone] [facility] [id number] Study Information Study Number Admission Scheduled Start Study Start 877-17 12/13/2016 12/13/2016 Dec 13 2016 8:13AM Referring Institution Admit Source Facility Department 1 [facility] - Administrative Dietitian Physician and Clinical Staff Initial Chris Olmos Senior Group Manager Franchesca Gilmore,CHANDRAKANT Recorder Jossy Castellanos,LANOLIN PLANT OPERATOR TECH2 Scrub Leyda Lopez RCIS TECH2 Procedures Performed Procedure Location (Site) Vessel Name Angiogram LV LV Ventricle Coronary Angiograms LCA Left Coronary Coronary Angiograms RCA Right Coronary L Heart Cath 12/13/2016 8:59:38 AM Financial #: [id number] 2 of 9 Patient Name: HAWA YEE Study #: [id number] Initial MD: Chris Padilla Date of : 1935 Study Date: 12/13/2016 Equipment Time Animal Shelter Worker Description Size Mfg Part Number Used/Scraped TRANSDUCER, TRUWAVE 08:15 BRUNSON PELAYO * [id number] Used W/STOCKCOCK 08:34 CORDIS/ CAROLYN JR 4.0 GUIDE CATHETER 55CM FR 6 [id number] Used 08:15 [employer] IND[employer] PACK, CCL CUSTOM * [id number] Used 08:15 [employer] PACER PEN, SKIN DUAL W/ RULER * [id number] Used [id number] 08:15 [employer] MEDICAL SHEATH, FR6.5 PRELUDE 11CM FR 6.5 Used [id number] 08:47 [employer] MEDICAL WIRE, 3MMJ .035 180CM 180CM [id number] Used 08:15 [employer] MEDICAL WIRE, 3MMJ .035 180CM 180CM [id number] Used 08:15 [employer] MANIFOLD, 4 PORT * [id number] Used 08:44 [employer] OMNIPAQUE, 300 MG, 50ML 50ML [id number] Used 08:15 [employer] OMNIPAQUE, 350 MG, 100ML 100ML [id number] Used 08:15 [employer] MEDICAL BLANKET,WARM AIR CCL * [id number] Used Insurance Information Insurance Payor State Specific Plan, Private Health Insurance Third Constitution Party Third Constitution Party Number [facility] FHCMCRHMO History: Current Medications Medication Dosage/Unit Route Frequency Last Date/Time Taken ASA Statins (any) LISINOPRIL PLAVIX History: Allergies Allergy Reaction No Known Allergies 12/13/2016 8:59:38 AM Financial #: [id number] Patient Name: HAWA YEE Study #: [id number] Initial MD: Chris Padilla Date of : 1935 Study Date: 7 History: Risk Factors Family History of Hypertension Dyslipidemia Previous VT Previous Heart Failure Premature CAD Yes Yes No Yes No Prior Valve Prior PCI Prior PCIDate Prior CABG Surgery No Yes 11/25/2016 No Cerebrovascular Peripheral Artery Chronic Lung On Dialysis Diabetes Disease Disease Disease No No No No No History: Symptoms/Diagnosis Selection Items Chest pain History: Other Disease Selection Items CAD Gerd HTN History: VT/CV Data Previous Cath Date 11/25/2016 Labs Glucose (mg/dl) BUN (mg/dl) Creatinine (mg/dl) BUN:Creatinine (1:x) 60.00-110.00 8.00-20.00 0.10-9.00 10.00-20.00 90 19 1.1 17.3 Na (meq/l) K (meq/l) Cl (meq/l) CO2 (mmol/L) Ca (mg/dl) 138.00-146.00 3.80-5.10 101.00-111.00 23.00-30.00 9.00-10.50 139 4.9 100 20 9.3 PT (sec) INR (PTT:PT) 9.40-11.40 0.50-2.00 10.3 1 Medication Medication Total Dose (Bolus/Oral) Medication Total Dosage/Unit 1% XYLOCAINE 20 mL VERSED 2 mg 12/13/2016 8:59:38 AM Financial #: [id number] 4 of 9 Patient Name: HAWA YEE Study #: [id number] Initial MD: Chris Padilla Date of : 1935 Study Date: 2016 Medications (Bolus/Oral) Medication Time Given Dosage/Unit Administered By Reason VERSED 12/13/2016 8:31:16 AM 2 mg Franchesca Gilmore 2 mg VERSED given in lab by Franchesca Gilmore RN in Left Antecubital via Peripheral IV. 1% XYLOCAINE 12/13/2016 8:32:04 AM 20 mL Franchesca Gilmore 20 mL 1% XYLOCAINE given in lab by Franchesca Gilmore RN in Left Groin via Subcutaneous. Medication (Drip) Medication Time Given Dosage/Unit Concentration/Unit Diluent (ml) Soluti on IV Solutions 12/13/2016 8:13:08 AM 0 mL (IV) 500 NaCl .9 IV Solutions given in lab by Franchesca Gilmore RN in Left Antecubital via Peripheral IV. Pump/Drip Flow = 20 ml/hr using NaCl .9. Final Case Assessment Cardiovascular HR NIBP 69 120/60 Edema Present Skin color Skin None Normal Warm Dry Circulatory - Right Pulses Dorsalis Pedis Femoral 1 2 Scale (0,1,2,3,4,d) Circulatory - Left Pulses Dorsalis Pedis Femoral 1 2 Scale (0,1,2,3,4,d) Neurological State Oriented to time-place- Alert Moves all extremities person Respiration - General Respiration Rate SpO2 (%) (B/min) 12 97 12/13/2016 8:59:38 AM Financial #: [id number] 5 of 9 Patient Name: HAWA YEE Study #: [id number] Initial MD: Chris Padilla Date of : 1935 Study Date: 7 Vitals Summary Pain Time HR NIBP SpO2 Resp Temp EtCO2 Apnea Radha Salcedo Comment Level 08:14:29 64 87/68 97.0 11 10 0 2 08:19:08 66 92/68 99.0 19 10 0 2 08:24:46 54 137/72 98.0 20 10 0 2 08:29:18 65 149/74 98.0 19 10 0 2 08:34:15 60 116/64 99.0 19 10 0 2 08:39:14 62 128/63 98.0 15 10 0 2 08:44:17 65 122/67 97.0 19 10 0 2 08:49:16 69 121/65 97.0 19 10 0 2 08:54:17 69 120/60 97.0 12 10 Radha Score Summary Time Activity Resp Circ LOC Color Total Score 8:14:29 2 2 2 2 2 10 8:19:08 2 2 2 2 2 10 8:24:46 2 2 2 2 2 10 8:29:18 2 2 2 2 2 10 8:34:15 2 2 2 2 2 10 8:39:14 2 2 2 2 2 10 8:44:17 2 2 2 2 2 10 8:49:16 2 2 2 2 2 10 8:54:17 2 2 2 2 2 10 Radha Score Definition Table Activity - 0 Activity - 1 Activity - 2 No Movement to Command Weak Hand Grasp Lift Head, Good Hand Grasp Respiration - 0 Respiration - 1 Respiration - 2 Apneic or Obstructed Shallow Breath, Airway Adjunct Deep Breath, Cough Freely Circulation - 0 Circulation - 1 Circulation - 2 B/P > 50% Admission B/P B/P > 20-50% Admission B/P B/P Stable X3 Level of Consciousness - 0 Level of Consciousness - 1 Level of Consciousness - 2 Not Responding Arousable On Calling Awake and Aware Color - 0 Color- 1 Color - 2 Cyanotic Lips, Nailbed, Skin Pale, Dusky Avinger Or Normal Chronological Log Time Study Chronological Log 8:12:49 Patient arrived via Bed. 12/13/2016 8:59:38 AM Financial #: [id number] Patient Name: HAWA YEE Study #: [id number] Initial MD: Chris Padilla Date of : 1935 Study Date: 12/13/2016 8:12:50 Patient Name, D.O.B, / Armband Verified By R.N. 8:12:50 Consent signed by the physician and the patient and verified by the Administrative Dietitian staff. 8:12:51 Pre-op and post- op instructions given; patient acknowledges understanding of instructions. 8:12:52 Verbal Stimulation=2 Physical Stimulation=2 Airway=2 Respiration=2 TOTAL=8. (0=absent, 1=li mited, 2=present) 8:12:53 Presedation assessment performed by Administrative Dietitian RN. 8:12:58 Patient has been NPO for More than 6Hrs. 8:13:00 Skin Breakdown none per pt 8:13:01 Patient Warmer Placed on the Table. 8:13:06 Valeria Prominences Protected 8:13:07 A # 20 IV was noted in the Antecubital (left). Grade = 0 IV Solutions given in lab by Franchesca Gilmore, RN in Left Antecubital via Peripheral IV. Pump/Dri p Flow = 20 ml/hr using 8:13:08 NaCl .9. 8:13:09 History and physical on the chart or being dictated. Vitals capture started with the following parameters, Patient=Adult, Interval=5 min, Initial Pr ptymsc=654 mmHg, 8:13:36 Deflation Rate=5 mmHg 8:14:29 HR=64 bpm, NIBP=87/68 mmhg, SpO2=97.0 %, Resp=11 B/min, Pain=0, Radha=10, Salcedo=2 Assessment: Final Case, HR=69 BPM, VOIM=110/60 mmhg, Edema=None, Color=Normal, Skin = Warm, Dry Right Pulses: Moncho Ped=1, Femoral=2 8:15:10 Left Pulses: Moncho Ped=1, Femoral=2 Neurological: State=Alert, Ox3, [place] Respiration: Resp=12 B/min, SpO2=97 % 8:19:08 HR=66 bpm, NIBP=92/68 mmhg, SpO2=99.0 %, Resp=19 B/min, Pain=0, Radha=10, Salcedo=2 8:24:46 HR=54 bpm, XPBM=502/72 mmhg, SpO2=98.0 %, Resp=20 B/min, Pain=0, Radha=10, Salcedo=2 8:25:07 Reference ECG taken 8:29:18 HR=65 bpm, TBHR=186/74 mmhg, SpO2=98.0 %, Resp=19 B/min, Pain=0, Radha=10, Salcedo=2 8:29:56 Pressure channel 1 zeroed. Time Out. Correct patient, correct procedure,correct physician, ,power injector loaded with con trast with surgical team 8:31:15 present. Time Out Concurred by MD, individual staff in procedure 8:31:16 2 mg VERSED given in lab by Franchesca Gilmore, RN in Left Antecubital via Peripheral IV. 8:32:03 Case Start 8:32:04 20 mL 1% XYLOCAINE given in lab by Franchesca Gilmore, RN in Left Groin via Subcutaneous. 8:34:15 HR=60 bpm, ZRQT=529/64 mmhg, SpO2=99.0 %, Resp=19 B/min, Pain=0, Radha=10, Salcedo=2 8:35:01 Access site was Left Femoral Artery. 8:35:08 A SHEATH, FR6.5 PRELUDE 11CM FR 6.5 was advanced into the Fem Art (left) using the Modified Seldinger technique. A JL 4.0 INFINITI CATHETER FR 6 was advanced over a wire. OMNIPAQUE, 350 MG, 100ML 100ML was us ed for 8:35:27 injections. Recorded Pressure: Ao, HR=56, Condition=Condition 1 8:36:06 (Aorta) Ao 115/46/74 8:37:50 The LCA was injected and visualized at various angles. OMNIPAQUE, 350 MG, 100ML 100ML used . 8:39:14 HR=62 bpm, KWMK=467/63 mmhg, SpO2=98.0 %, Resp=15 B/min, Pain=0, Radha=10, Salcedo=2 After removing the current catheter a JL 4.5 INFINITI CATHETER FR 6 was advanced over a WIRE, 3 MMJ .035 180CM 8:40:33 180CM. 8:42:07 Catheter was removed 12/13/2016 8:59:38 AM Financial #: [id number] Patient Name: HAWA YEE Study #: [id number] Initial MD: Chris Padilla of : 1935 Study Date: 12/13/2016 A JR 4.0 GUIDE CATHETER 55CM FR 6 was advanced over a wire. OMNIPAQUE, 350 MG, 100ML 100ML was used for 8:43:04 injections. 8:43:34 The RCA was injected and visualized at various angles. OMNIPAQUE, 350 MG, 100ML 100ML used . 8:43:47 Catheter was removed A PIGTAIL STR INFINITI CATHETER FR 6 was advanced over a wire. OMNIPAQUE, 300 MG, 50ML 50ML was used for 8:44:07 injections. 8:44:17 HR=65 bpm, YANP=881/67 mmhg, SpO2=97.0 %, Resp=19 B/min, Pain=0, Radha=10, Salcedo=2 8:44:37 LV INJECTOR LOADED WITH CONTRAST AND VERIFIED TO BE FREE OF AIR BY FRANCHESCA GILMORE RN Recorded Pressure: LV, HR=64, Condition=Condition 1 8:48:38 (Left Ventricle) LV 146/3/12 8:49:16 HR=69 bpm, VHLS=783/65 mmhg, SpO2=97.0 %, Resp=19 B/min, Pain=0, Radha=10, Salcedo=2 8:49:39 The LV was injected at 12 cc/sec for a total of 30. OMNIPAQUE, 300 MG, 50ML 50ML used. Recorded Pressure: LV, Ao, HR=63, Condition=Condition 1 8:49:59 (Left Ventricle) LV 145/4/7, (Aorta) Ao 124/51/80 8:51:22 Catheter was removed 8:51:31 Case End 8:52:36 Catheter(s) removed without difficulty 8:52:38 Sheath(s) left in place, will be removed in Holding Area 8:52:42 Sterile dressing applied to site 8:52:43 No case complications noted. 8:52:45 Cine recording checked. 8:52:52 Bedside Report will be given. 8:54:17 HR=69 bpm, WXRK=986/60 mmhg, SpO2=97 %, Resp=12 B/min, Radha=10 8:54:17 Contrast Scanned 8:54:20 A Left Heart Cath was performed. 8:54:44 Clinical correlaton risk stratification. 8:54:58 Vitals capture stopped. 8:56:07 Patient moved to stretcher Recorded Pressures: Condition 1 Time Chamber Pressure Manual Override (*) 8:36:06 Ao 115/46/74 s/d/m 8:48:38 LV 146/3/12 s/bd/ed 8:49:59 LV 145/4/7 s/bd/ed 8:49:59 Ao 124/51/80 s/d/m 12/13/2016 8:59:38 AM Financial #: [id number] Patient Name: HAWA YEE Study #: [id number] Initial MD: Chris Padilla Date of : 1935 Study Date: 12/13/2016 End Study - Contrast Media Used In Study Contrast Total Opened (mL) Total Used (mL) Total Wasted (mL) Omnipaque 60 60 0 End Study - Maximum Contrast Load Max Contrast Load (mL) 380.0 End Study - Radiation Exposure Fluoro Time (minutes) 5.4 End Study - Patient Disposition Complications Transferred To No Telemetry Bed 12/13/2016 8:59:38 AM Financial #: [id number]
--- NOTE | 2016-12-13 11:54 | MA ---
cc: CHRIS PADILLA MD DATE: 12/13/2016 The patient was prepped and draped in usual fashion. Coronary angiography was done with Tyron preformed catheters. The left coronary was actually best visualized with a L-4.5 catheter. Left ventriculography was done with a pigtail catheter. RESULTS The aortic pressure was 124/50. Left ventricular end-diastolic pressure was 4, there was no gradient across the aortic valve. CORONARY ANGIOGRAPHY Calcification of the arteries was noted. The left main coronary had approximately 40-50% stenosis in its distal portion, at the origin of the left circumflex artery, high-grade stenosis of approximately 90% was present just at the ostium of the artery. This appeared to be new compared to his prior catheterization. The intraluminal stent was widely patent as was intraluminal stent in the left anterior descending artery. No other significant stenoses were seen in the LAD itself. The right coronary was nondominant. No significant stenoses were seen. The left ventricle contracted normally. Overall, left ventricular ejection fraction was normal at 60%. No mitral regurgitation was present. Aortic valve appeared to be calcified. A 20-mm gradient was present across the valve. CONCLUSION The patient demonstrates mild aortic stenosis. Does appear to have a high-grade ostial stenosis of the left circumflex with what appears to be some extension into the left main. This may be secondary to a small ___ dissection previously unrecognized. In any event it would appear to be a rather difficult and high-risk angioplasty. His case will be discussed with cardiovascular surgery regarding possible coronary bypass grafting to the circumflex. Chris Padilla MD DLMari/TLL /9:02 AM /11:40 AM
--- NOTE | 2016-12-13 11:55 | HHI.FF ---
Face to Face Verification Diagnosis: (1) CAD (coronary artery disease) Home Health Nursing Order: Medical education IV medication administration Instructions: Lovenox 40mg SQ Q12hrs. Starting Tuesday12/15/16. Last dose Tuesday12/19/16. I have seen patient Ramón Stewart on 12/13/16. My clinical findings support the need for the requested home health care services because: Injectable med education/admin I certify that my clinical findings support that this patient is homebound because: Post-op weakness injectable medication Kendal Sigala MD December 13, 2016 11:55
[2016-12-13 13:45] LABS: AUTOMATED NEUTROPHIL # 4.8 TH/MM3 (1.8-7.7); BASOPHIL # 0.1 TH/MM3 (0-0.2); BASOPHIL % 1.3 % (0.0-2.0); EOSINOPHIL # 0.2 TH/MM3 (0-0.4); EOSINOPHIL % 2.9 % (0.0-4.0); HEMATOCRIT 34.6 % (39.0-51.0); HEMO FLAGS DIFF FINAL; LYMPH % 24.2 % (9.0-44.0); LYMPHOCYTE # 1.8 TH/MM3 (1.0-4.8); MEAN CORPUSCULAR HEMOGLOBIN 31.4 PG (27.0-34.0); MEAN CORPUSCULAR HGB CONC 33.4 % (32.0-36.0); MONO % 7.8 % (0.0-8.0); NEUT % 63.8 % (16.0-70.0); PLATELET COUNT 161 TH/MM3 (150-450); RED BLOOD COUNT 3.68 MIL/MM3 (4.50-5.90); RED CELL DISTRIBUTION WIDTH 14.1 % (11.6-17.2); WHITE BLOOD COUNT 7.5 TH/MM3 (4.0-11.0)
[2016-12-13 13:53] LABS: PROTHROMBIN TIME - PATIENT 11.4 SEC (9.8-11.6)
[2016-12-13 13:57] LABS: ANION GAP 6 MEQ/L (5-15); BICARBONATE 28.3 MEQ/L (21.0-32.0); BLOOD UREA NITROGEN 22 MG/DL (7-18); CHLORIDE 106 MEQ/L (98-107); GLOMERULAR FILTRATION RATE 68 ML/MIN (>89); POTASSIUM 4.2 MEQ/L (3.5-5.1); SODIUM (NA) 140 MEQ/L (136-145)
--- NOTE | 2016-12-13 14:47 | RADRPT ---
EXAM DATE/TIME: 12/13/2016 14:07 [facility] COMPARISON: No previous studies available for comparison. INDICATIONS : Preop cardiac surgery. MEDICAL HISTORY : Hypercholesterolemia. Hypertension. Hernia, hiatal. Thyroid disease. Chest pain. Anticoagulant therap y, Plavix. SURGICAL HISTORY : Tonsillectomy.Coronary artery stent. Inguinal hernia repair.Cardiac cath. Appendectomy. ENCOUNTER: Initial ACUITY: 1 day PAIN SCORE: 0/10 LOCATION: Bilateral leg. TECHNIQUE: Venous ultrasound of the left and right leg was performed from the inguinal ligament to the proximal calf. Real-time, color Doppler and spectral tracing, compression and augmentation techniques were us ed. FINDINGS: RIGHT LEG: There is normal compressibility of the deep venous system from the inguinal region to the proximal ca lf. No echogenic clot is seen in the lumen of the common femoral, femoral, popliteal, and posterior tibial veins. There is a normal response of the venous system to proximal and distal augmentation an d respiration. LEFT LEG: There is normal compressibility of the deep venous system from the inguinal region to the proximal ca lf. No echogenic clot is seen in the lumen of the common femoral, femoral, popliteal, and posterior tibial veins. There is a normal response of the venous system to proximal and distal augmentation an d respiration. CONCLUSION: Negative for DVT. Left inguinal region is not evaluated. Skyler Triana MD FACR on December 13, 2016 at 14:44 Board Certified Radiologist. This report was verified electronically.
--- NOTE | 2016-12-13 15:15 | RADRPT ---
EXAM DATE/TIME: 12/13/2016 14:29 [facility] COMPARISON: No previous studies available for comparison. INDICATIONS : Preop cardiac surgery. MEDICAL HISTORY : Hypercholesterolemia. Hypertension. Hernia, hiatal. Thyroid disease. Chest pain. Anticoagulant therap y, Plavix. SURGICAL HISTORY : Tonsillectomy. Coronary artery stent. Inguinal hernia repair. Cardiac cath. Appendectomy. ENCOUNTER: Initial ACUITY: 1 day PAIN SCORE: 0/10 LOCATION: Bilateral leg. GREATER SAPHENOUS VEIN THIGH: PROXIMAL: Right 5 mm Left 2 mm MID: Right 3 mm Left 3 mm DISTAL: Right 2 mm Left 2 mm CALF: PROXIMAL: Right 2 mm Left 1 mm MID: Right 1 mm Left Non-visualized DISTAL: Right 2 mm Left Non-visualized FINDINGS: The venous system of the lower extremities are patent by color Doppler imaging. Measurements of the leg veins (in mm) are listed above. CONCLUSION: Venous mapping as described above. Skyler Triana MD FACR on December 13, 2016 at 15:12 Board Certified Radiologist. This report was verified electronically.
--- NOTE | 2016-12-13 15:37 | RADRPT ---
EXAM DATE/TIME: 12/13/2016 15:05 [facility] COMPARISON: No previous studies available for comparison. INDICATIONS : Preop cardiac surgery. MEDICAL HISTORY : Hypercholesterolemia. Hernia, hiatal. Hypertension. Thyroid disease. Chest pain . Anticoagulant therapy, Plavix. SURGICAL HISTORY : Tonsillectomy. Coronary artery stent. Inguinal hernia repair. Cardiac cath. Ap pendectomy. ENCOUNTER: Initial ACUITY: 1 day PAIN SCORE: 0/10 LOCATION: Bilateral neck PEAK SYSTOLIC VELOCITIES (cm/sec): ICA/CCA RATIO: Right: 1.1 Left: 1.1 ICA: Right: 94.4 Left: 98.7 CCA: Right: 86.6 Left: 92.4 ECA: Right: 71.1 Left: 88.4 VERTEBRAL: Right: 80.4 antegrade Left: 62.9 antegrade Elevated flow velocities and ICA/CCA ratios have been found to correlate with increased degrees of vessel stenosis, calculated as percentage of diameter relative to a normal segment of distal ICA/CCA FINDINGS: RIGHT CAROTID: There is no evidence for a hemodynamically significant carotid stenosis. Minimal int imal hyperplasia is present with scattered calcific plaque. LEFT CAROTID: There is no evidence for a hemodynamically significant carotid stenosis. Minimal inti mal hyperplasia is present with scattered calcific plaque. VERTEBRAL ARTERIES: Flow is antegrade in both vertebral arteries. MISCELLANEOUS: There is 1 cm cystic mass probably arising from the left thyroid. CONCLUSION: Negative examination for a hemodynamically significant carotid stenosis. Cystic mass le ft thyroid. Skyler Triana MD FACR Board Certified Radiologist. This report was verified electronically.
[2016-12-13] MEDS ORDERED: IOHEXOL 350 MG/ML 100 ML BTL (for Cath Lab) OTHER ONE (15:38)
--- NOTE | 2016-12-13 16:25 | RADRPT ---
EXAM DATE/TIME: 12/13/2016 16:08 [facility] COMPARISON: CHEST PA & LAT, November 24, 2016, 12:26. INDICATIONS : Evaluate for pneumonia, pneumothorax or cummunicable disease Pre heart surgery MEDICAL HISTORY : None. SURGICAL HISTORY : None. ENCOUNTER: Subsequent ACUITY: 2 weeks PAIN SCORE: 2/10 LOCATION: Bilateral chest FINDINGS: PA and lateral views of the chest demonstrate the lungs to be symmetrically aerated without evidence of mass, infiltrate or effusion. The cardiomediastinal contours are unremarkable. Osseous structure s are intact. CONCLUSION: No acute disease. No significant change has occurred. Kimo Mena MD on December 13, 2016 at 16:23 Board Certified Radiologist. This report was verified electronically.
[2016-12-13 16:45] LABS: BLOOD, URINE TRACE (NEG); COMMENT (UR) CULT NOT INDICATED; CULTURE IF INDICATED CULT NOT INDICATED; GLUCOSE,URINE NEG (NEG); KETONE, URINE NEG (NEG); NITRITE,URINE NEG (NEG); URINE COLOR LIGHT-YELLOW (YELLW/STRAW)
--- NOTE | 2016-12-13 17:54 | MB ---
cc: CHRIS PADILLA MD, SOHIT K. MD DATE OF CONSULTATION 12/13/[address] Chris Padilla REASON FOR CONSULTATION Symptomatic recurrent coronary artery disease. HISTORY OF THE PRESENT ILLNESS Mr. Stewart is a very pleasant 81-year-old gentleman with a known history of coronary disease status post previous angioplasty and stenting of the LAD as well as circumflex artery with repeat stenting of the circumflex in-stent re-stenosis who now presents with recurrent symptoms of angina equivalent chest pain. This is described as a substernal chest discomfort, pressure pain with no radiation or associated symptoms. He has undergone further workup including a nuclear stress test which was positive and eventual coronary angiogram today which revealed a 90% ostial circumflex stenosis with widely patent intracoronary stents. I am now being consulted for surgical revascularization therapy. At present time he remains pain free, hemodynamically stable with no evidence of ongoing ischemia. PAST MEDICAL HISTORY Significant for: 1. Acute myocardial infarction with coronary artery disease status post angioplasty and stenting x2. 2. Hypothyroidism. 3. Gastritis. 4. Diverticulosis. 5. . 6. Glaucoma. 7. Gastroesophageal reflux disease. 8. Hyperlipidemia. 9. Hypertension. 10. Peripheral neuropathy. PAST SURGICAL HISTORY Remarkable for: 1. Appendectomy. 2. Cataract surgery. 3. Inguinal hernia repair. 4. Tonsillectomy and adenoidectomy. ALLERGIES THE PATIENT REPORTS NO KNOWN DRUG ALLERGIES. MEDICATIONS Current medications include: 1. Aspirin. 2. Atorvastatin. 3. Dorzolamide. 4. Latanoprost. 5. Levothyroxine. 6. Lisinopril. 7. Metoprolol. 8. Plavix. 9. Temazepam. SOCIAL HISTORY Denies any history of smoking, alcohol use or illicit drug use. FAMILY HISTORY Significant for premature coronary artery disease in the father and brother who both of coronary artery disease. REVIEW OF SYSTEMS As above. All other parameters are negative. PHYSICAL EXAMINATION VITAL SIGNS: On physical examination today he is 83 kilos and 172 cm tall, blood pressure 158/70 with a heart rate of 48 which is regular, respiratory rate is 18 and he is afebrile. HEENT: Normocephalic, atraumatic. Pupils are round and reactive. Extraocular muscles intact. NECK: No cervical lymphadenopathy, carotid bruits or JVD. CARDIOVASCULAR: Regular rate and rhythm. Normal S1-S2 without gallops, rubs or murmurs. LUNGS: Clear to auscultation bilaterally with good air exchange. ABDOMEN: Soft, nontender, nondistended. Normoactive bowel sounds. No hepatosplenomegaly. EXTREMITIES: Bilateral lower extremity pulses are intact without cyanosis, clubbing or edema. No venous varicosities. NEUROLOGIC: Intact with no focal deficits. IMPRESSION 1. Recurrent coronary artery disease with proximal circumflex ostial stenosis status post multiple angioplasties and stenting in the past. 2. Hypothyroidism. 3. Hypertension. 4. GERD. 5. Hyperlipidemia. PLAN The clinical and angiographic findings were discussed in detail with the patient and his today. Therapeutic options available including coronary artery bypass grafting was recommended. I certainly agree with Dr. Padilla that he maximally benefit from single-vessel bypass to his circumflex distribution. The risks, complications, benefits of surgical procedure were discussed in detail and all questions answered. They appeared to comprehend the given information and wished to proceed with the planned operation. We will proceed with surgical procedure as described above on Tuesday the as a first case basis. In the meantime we will obtain vein mapping, PFTs and carotid duplex imaging. Additionally since he has been on Plavix and has a drug-eluting stent we will stop the Plavix five days prior to surgery and put him on Lovenox b.i.d. subcutaneous injections to be stopped the evening before the surgery. They were also advised that should he have recurrent symptom which are refractory to medical therapy to come in to the emergency room emergently and we will take care of this sooner. Thank you for allowing me to participate in this patient. Kendal NEWBY /11:40 AM /5:33 PM
[2016-12-13 18:58] LABS: HEMOGLOBIN A1a 1.2 %; HEMOGLOBIN A1b 0.8 %; HEMOGLOBIN Ao 85.9 %; HEMOGLOBIN F 0.8 %; HEMOGLOBIN P3 4.9 %
--- NOTE | 2016-12-15 12:34 | PD.CAR.PN ---
CVT Progress Note Subjective/Hospital Course: Risk Model and Variables - STS Adult Cardiac Surgery Database Version 2.81 RISK SCORES About the STS Risk Calculator Procedure: CAB Only Risk of Mortality: 1.163% Morbidity or Mortality: 9.341% Long Length of Stay: 3.69% Short Length of Stay: 52.037% Permanent Stroke: 0.598% Prolonged Ventilation: 5.294% DSW Infection: 0.233% Renal Failure: 1.74% Reoperation: 4.285% Result Diagram: 12/13/16 1330 12/13/16 1330 Kendal Sigala MD December 15, 2016 12:33
--- NOTE | 2016-12-22 10:26 | RSPPFT ---
DATE OF PROCEDURE: 12/13/16 COMMENTS: Spirometry shows FVC of 2.6 at 77% of predicted, FEV1 of 1.9 at 76%, FEV1/FVC ratio is normal. Flow is normal at FEF 25-75. Flow volume loop indicates a normal pattern. IMPRESSION: 1. Normal spirometry. 2. Post-bronchodilator study was not performed.
== END 2016-12-13 17:00 | disposition home or self-care (01) ==
LOC: HDOC 06:18 → HDIC 06:19 → HDOC 16:40
PROVIDERS: ATTEND Internal Medicine Cardiovascular Disease
DX: I35.0 Nonrheumatic aortic (valve) stenosis (principal); I25.10 Atherosclerotic heart disease of native coronary artery without angina pectoris; I25.2 Old myocardial infarction; E03.9 Hypothyroidism, unspecified; E78.5 Hyperlipidemia, unspecified; I10 Essential (primary) hypertension; Z79.01 Long term (current) use of anticoagulants
CPT/HCPCS: 71020; 80048; 81001; 83036; 85025; 85610; 85730; 86850; 86900; 86901; 87641; 93458; 93880; 93970; 93998; 94010; C1769; C1893; J1644; J2250; Q9967

== ENCOUNTER 2016-12-15 11:10 | Inpatient (IN) | payer MEDICARE ==
[~2016-12-15] VITALS: Ht 172.7 cm; Wt 86.1 kg
[2016-12-20] VITALS (8 sets, daily range): BP systolic 75–161; BP diastolic 41–77; PULSE 55–79; RESP 16–18; TEMP 96–97.8; O2SAT 93–99
[2016-12-20] MEDS ORDERED: PROTAMINE SULFATE 250 MG/25 ML VIAL IV ONE (05:00)
[2016-12-20] MEDS ORDERED: MAGNESIUM SULFATE 1000 MG/2 ML VIAL (PED) IV ONE (05:00)
[2016-12-20] MEDS ORDERED: GLYCOPYRROLATE 0.2 MG/ML VIAL IV ONE (05:00)
[2016-12-20] MEDS ORDERED: AMINOCAPROIC ACID INJ 250 MG/ML 20 ML VIAL IV ONE (05:00)
[2016-12-20] MEDS ORDERED: CALCIUM CHLORIDE 10% SOLN 1 GRAM/10 ML SYR IV ONE (05:00)
[2016-12-20] MEDS ORDERED: NITROGLYCERIN-DEXTROSE INJ 250 ML IV ONE (05:00)
[2016-12-20] MEDS ORDERED: ARTIFICIAL TEARS OPTH OINT 3.5 APPLIC/3.5 GM TUBO ONE (05:00)
[2016-12-20] MEDS ORDERED: PHENYLEPHRINE HCL 10 MG/ML VIAL IV ONE (05:00)
[2016-12-20] MEDS ORDERED: HEPARIN SODIUM - IV 10,000 UNITS/10 ML VIAL IV ONE (05:00)
[2016-12-20] MEDS ORDERED: POVIDONE IODINE 5% (ANTISEPSIS KIT) 4 APPLICATIONS EACH NARE PRN (06:15)
[2016-12-20] MEDS ORDERED: LACTATED RINGER'S 1000 ML IV PRN (06:15)
[2016-12-20] MEDS ORDERED: SODIUM CHLORID 0.9% 500 ML IV PRN (06:15)
[2016-12-20] MEDS ORDERED: CHLORHEXIDINE GLUCONATE 2 % 1 PACK (2 CLOTHS) TOPICAL PRN (06:15)
[2016-12-20] MEDS ORDERED: INSULIN HUMAN REGULAR 1,000 UNITS/10 ML VIAL SQ PRN (06:15)
[2016-12-20] MEDS ORDERED: METOPROLOL TARTRATE 25 MG TAB PO PRN (06:15)
[2016-12-20] MEDS ORDERED: PAPAVERINE 60 MG-NITROGLYCERIN 100 MCG-DILTIAZEM 100 MG in NS 100 ML IRRIGATION SCH ×4 (06:15)
[2016-12-20] MEDS ORDERED: ceFAZolin 2 GM PREMIX 50 ML IV SCH (06:15)
[2016-12-20] MEDS ORDERED: CEFAZOLIN 500 MG in NS IRR BTL 500 ML IRRIGATION SCH (06:15)
[2016-12-20] MEDS ORDERED: SODIUM CHLORIDE 0.9% FLUSH 10 ML FLUSH IV FLUSH PRN ×3 (06:15→10:30)
[2016-12-20] MEDS ORDERED: METOPROLOL TARTRATE 25 MG TAB PO SCH (06:15)
[2016-12-20] MEDS ORDERED: CHLORHEXIDINE GLUCONATE 4% SOLN 120 ML BTL TOPICAL SCH (06:15)
[2016-12-20] MEDS ORDERED: INSULIN REGULAR 100 UNITS in NS 100 ML IV SCH (06:15)
[2016-12-20] MEDS ORDERED: HEPARIN SODIUM - IV 10,000 UNITS/10 ML VIAL ONE (06:17)
[2016-12-20] MEDS ORDERED: VANCOMYCIN HCL 1000 MG VIAL ONE (06:18)
[2016-12-20] MEDS ORDERED: ceFAZolin 2 GM PREMIX 50 ML ONE (06:18)
[2016-12-20] MEDS ORDERED: POTASSIUM CHLORIDE 20 MEQ/10 ML VIAL ONE (07:03)
[2016-12-20] MEDS ORDERED: HEPARIN SODIUM - SQ 10,000 UNITS/ML VIAL OTHER ONE (07:30)
[2016-12-20] MEDS ORDERED: VANCOMYCIN HCL 1000 MG VIAL OTHER ONE (07:30)
[2016-12-20] MEDS ORDERED: HEPARIN SODIUM - SQ 10,000 UNITS/ML VIAL ONE (08:09)
[2016-12-20] MEDS ORDERED: NEOSTIGMINE 3 MG/3 ML SYR IV ONE (08:23)
[2016-12-20] MEDS ORDERED: NORMOSOL R INJ 1,000 ML IV ONE (08:23)
[2016-12-20] MEDS ORDERED: LACTATED RINGER'S 1000 ML INJ 1,000 ML IV ONE (08:23)
[2016-12-20] MEDS ORDERED: SODIUM CHLOR 0.9% 250 ML INJ 250 ML IV ONE (08:23)
[2016-12-20] MEDS ORDERED: SODIUM CHLORIDE 0.9% INJ 100 ML IV ONE (08:23)
[2016-12-20] MEDS ORDERED: ePHEDrine/NS 25 MG/5 ML SYR IV ONE (08:23)
[2016-12-20] MEDS ORDERED: VECURONIUM BROMIDE 20 MG VIAL IV ONE (08:23)
--- NOTE | 2016-12-20 10:29 | PD.OP ---
cc: Kendal Sigala MD; Nancy Padilla MD Operative Report Date of Surgery: December 20, 2016 Preoperative Diagnosis: Postoperative Diagnosis: Procedure: 1. Off-pump Coronary Artery Bypass Grafting x 1 with reverse saphenous vein graft to the terminal left Circumflex artery 2. Right Leg Endoscopic Vein [place] 3. Intraoperative Vein Mapping. . Surgeon: Kendal Sigala Dog Food Dough Mixer(s): Lorena Laboy Operation and Findings: PREPROCEDURE DIAGNOSES 1. Severe Single Vessel Coronary Artery Disease. 2. Recurrent Coronary Artery Disease s/p Stenting 3. Patent LAD Stent without stenosis POSTPROCEDURE DIAGNOSES Same SURGICAL PROCEDURE 1. Off-pump Coronary Artery Bypass Grafting x 1 with reverse saphenous vein graft to the terminal left Circumflex artery 2. Right Leg Endoscopic Vein [place] 3. Intraoperative Vein Mapping. SURGEON Kendal Sigala MD SALES AUDIT CLERK DEYSI Vargas ANESTHESIA General endotracheal DIVORCE ATTORNEY BROOK Camacho CRNA Kirk Dockendorf, MD PREPARATION ChloraPrep. COUNTS Needle, sponge, and instrument counts were correct. DRAINS Two 32-[place] mediastinal tubes. COMPLICATIONS None. INDICATIONS FOR PROCEDURE The patient is a 81-year-old presenting with chest pain. Patient was noted to have ostial LCX critical stenosis with widely patent LCX and LAD stents. The patient is being brought to the operating room for surgical revascularization therapy. PROCEDURE Patient was brought to the operating room and placed supine on the OR table. Following the induction of adequate general endotracheal anesthesia and placement of appropriate monitoring devices, intraoperative vein mapping was performed which revealed suitable-caliber conduit in bilateral lower extremities. The patient was then prepped and draped in standard sterile fashion. Next, 2500 units of intravenous heparin was given. The right greater saphenous vein was harvested endoscopically. This appeared to be a useable- caliber conduit. Simultaneously, a median sternotomy was performed. The patient was systemically heparinized and anticoagulation monitored by serial ACT measurements. The pericardium was then divided in the midline, the cradle created and the target analyzed. At this point, all anastomoses were performed in a beating-heart fashion using the [employer] stabilizing system with intracoronary shunts. The segment of reverse saphenous vein was anastomosed to the terminal LCX (2.0 mm) in an end-to-side fashion using a running 7-0 Prolene. The proximal anastomosis was then constructed to the ascending aorta in a running manner using 6-0 Prolene. All anastomotic sites were inspected and appeared to be hemostatic and patent. Protamine solution was given. Strict hemostasis was assured. The closure was undertaken. 2 chest tubes were placed. The pericardium was reapproximated in the midline. The sternum was approximated using sternal wires. The muscular and fascial layer were then closed in 3 layers. The endoscopic vein harvest site was closed in 2 layers. The patient tolerated the procedure well and was transferred to CVICU in stable condition. Kendal Sigala MD December 20, 2016 10:29
[2016-12-20] MEDS ORDERED: CALCIUM CHLORIDE INJ 1 GM in SODIUM CHLORIDE 0.9% INJ 100 ML IV PRN (10:30)
[2016-12-20] MEDS ORDERED: ACETAMINOPHEN/HYDROcodone 325 MG/5 MG TAB PO PRN (10:30)
[2016-12-20] MEDS ORDERED: PHENYLEPHRINE INJ 40 MG in DEXTROSE 5% IN WATE 500 ML INJ 496 ML IV SCH ×2 (10:30)
[2016-12-20] MEDS ORDERED: METOPROLOL TARTRATE 5 MG/5 ML VIAL IV PUSH PRN (10:30)
[2016-12-20] MEDS ORDERED: CLEVIDIPINE INJ 50 ML IV SCH (10:30)
[2016-12-20] MEDS ORDERED: CALCIUM CHLORIDE 10% 1 GRAM/10 ML VIAL IV PRN (10:30)
[2016-12-20] MEDS ORDERED: MAGNESIUM SULFATE INJ 2 GM in SODIUM CHLORIDE 0.9% INJ 100 ML IV PRN ×4 (10:30)
[2016-12-20] MEDS ORDERED: DEXMEDETOMIDINE INJ 200 MCG in SODIUM CHLORIDE 0.9% INJ 50 ML IV SCH (10:30)
[2016-12-20] MEDS ORDERED: INSULIN REGULAR (IV INFUSION) 100 UNITS in SODIUM CHLORIDE 0.9% INJ 99 ML IV SCH (10:30)
[2016-12-20] MEDS ORDERED: DEXTROSE 50% IN WATER 50 ML VIAL(D50) IV PUSH PRN (10:30)
[2016-12-20] MEDS ORDERED: MORPHINE SULFATE 4 MG/ML INJ IV PRN (10:30)
[2016-12-20] MEDS ORDERED: hydrALAZINE HCL 20 MG/ML VIAL IV PRN (10:30)
[2016-12-20] MEDS ORDERED: POTASSIUM CHLORIDE 20 MEQ CONTROLLED RELEASE TAB PO PRN ×2 (10:30)
[2016-12-20] MEDS ORDERED: Post-op Orders (for Pharmacy) MISC OTHER ONE (10:30)
[2016-12-20] MEDS ORDERED: ACETAMINOPHEN 325 MG TAB PO PRN (10:30)
[2016-12-20] MEDS ORDERED: NITROGLYCERIN-DEXTROSE INJ 250 ML IV SCH (10:30)
[2016-12-20] MEDS ORDERED: ACETAMINOPHEN 650 MG SUPP RECTAL PRN (10:30)
[2016-12-20] MEDS ORDERED: MEPERIDINE HCL 25 MG/ML VIAL IV PRN (10:30)
[2016-12-20] MEDS ORDERED: POTASSIUM CHLOR 20 MEQ PREMIX 100 ML IV PRN ×3 (10:30)
[2016-12-20] MEDS: ALBUMIN HUMAN 5% 12.5 GM/250 ML BOTTLE IV PRN ×2 (11:00→12:47)
[2016-12-20] MEDS ORDERED: fentaNYL CITRATE 1000 MCG/20 ML VIAL ONE (11:08)
[2016-12-20] MEDS ORDERED: MIDAZOLAM HCL 5 MG/5 ML VIAL ONE ×2 (11:08)
[2016-12-20] MEDS: ACETAMINOPHEN 1000 MG/100 ML VIAL IV SCH ×3 (11:45→23:17)
[2016-12-20] MEDS: SODIUM CHLORIDE 0.9% FLUSH 10 ML FLUSH IV FLUSH SCH ×2 (11:45→19:57)
--- NOTE | 2016-12-20 11:52 | RADRPT ---
EXAM DATE/TIME: 12/20/2016 11:14 [facility] COMPARISON: CHEST PA & LAT, December 13, 2016, 16:08. INDICATIONS : S/p cabg. MEDICAL HISTORY : Hypercholesterolemia. Hypertension Hiatal hernia. thyroid disease, anticoagulant therapy SURGICAL HISTORY : Coronary artery stent. cardiac cath ENCOUNTER: Initial ACUITY: 1 day PAIN SCORE: Non-responsive. LOCATION: Bilateral chest FINDINGS: The anterior tubes in good position. The patient is post median sternotomy. The right jugular introdu cer and mediastinal drains are in good position. The lungs are clear. CONCLUSION: Stable postoperative chest. Trell Triana MD on December 20, 2016 at 11:50 Board Certified Radiologist. This report was verified electronically.
[2016-12-20] MEDS: MUPIROCIN 2% OINT 22 GM TUBE EACH NARE SCH ×2 (12:55→19:57)
[2016-12-20] MEDS: ceFAZolin 2 GM PREMIX 50 ML IV SCH ×2 (16:03→23:17)
[2016-12-20] MEDS: ONDANSETRON HCL 4 MG/2 ML VIAL IV PUSH PRN (16:31)
[2016-12-20] MEDS: KETOROLAC TROMETHAMINE 30 MG/ML (IVP) VIAL IV PUSH PRN ×2 (16:37→23:17)
[2016-12-20] MEDS: AMIODARONE 200 MG TAB PO SCH (19:57)
[2016-12-20] MEDS ORDERED: RESP: ALBUTEROL 2.5 MG/IPRATROPIUM 0.5 MG NEB (PRN) NEB (22:15)
[2016-12-20] MEDS ORDERED: RESP: RACEPINEPHRINE 2.25% 0.5 ML NEB NEB PRN (22:15)
[2016-12-20] MEDS: LACTATED RINGER'S 1000 ML INJ 500 ML IV PRN (23:50)
[2016-12-21] VITALS (15 sets, daily range): BP systolic 92–117; BP diastolic 43–76; PULSE 62–100; RESP 16–20; TEMP 97.6–98.8; O2SAT 94–98
[2016-12-21] MEDS: LACTATED RINGER'S 1000 ML INJ 500 ML IV PRN (00:50)
[2016-12-21] MEDS ORDERED: RESP: ALBUTEROL 2.5 MG/IPRATROPIUM 0.5 MG NEB (SCH) NEB (04:00)
[2016-12-21] MEDS: PANTOPRAZOLE SOD 40 MG DELAYED RELEASE TAB PO SCH (05:01)
[2016-12-21] MEDS: ACETAMINOPHEN/HYDROcodone 325 MG/5 MG TAB PO PRN (05:02)
[2016-12-21 05:47] LABS: HEMATOCRIT 23.3 % (39.0-51.0); MEAN CORPUSCULAR HEMOGLOBIN 31.9 PG (27.0-34.0); PLATELET COUNT 140 TH/MM3 (150-450); RED BLOOD COUNT 2.48 MIL/MM3 (4.50-5.90); RED CELL DISTRIBUTION WIDTH 14.2 % (11.6-17.2); REVIEW FLAG FINAL; WHITE BLOOD COUNT 12.4 TH/MM3 (4.0-11.0)
[2016-12-21] MEDS: ACETAMINOPHEN 1000 MG/100 ML VIAL IV SCH (06:01)
[2016-12-21 06:07] LABS: BICARBONATE 24.5 MEQ/L (21.0-32.0); MAGNESIUM 2.1 MG/DL (1.5-2.5); POTASSIUM 4.1 MEQ/L (3.5-5.1)
--- NOTE | 2016-12-21 06:16 | RADRPT ---
EXAM DATE/TIME: 12/21/2016 05:00 [facility] COMPARISON: CHEST SINGLE AP, December 20, 2016, 11:14. INDICATIONS : Status post CABG. Patient is now status post extubation and removal of nasogastric tube.. MEDICAL HISTORY : Hypercholesterolemia. Hypertension Hiatal hernia. thyroid disease. SURGICAL HISTORY : CABG. Coronary artery stent. cardiac cath. ENCOUNTER: Subsequent ACUITY: 2 days PAIN SCORE: Non-responsive. LOCATION: Bilateral chest FINDINGS: A single AP portable semierect view of the chest was obtained it demonstrates the patient status post median sternotomy. The endotracheal tube and nasogastric tube have been removed. There is a right in ternal jugular central venous line in place with the tip projected near the junction of the superior vena cava and right atrium. There are 2 mediastinal chest tubes. There is streaky opacity noted in th e left lung most consistent with atelectasis. The heart size appears mildly prominent. There are athe rosclerotic changes in the aorta. The left costophrenic angle appears mildly blunted. CONCLUSION: 1. Interval extubation and removal of nasogastric tube. 2. Streaky opacity remains in the left lung most consistent with atelectasis. Ollie Webster MD on December 21, 2016 at 6:13 Board Certified Radiologist. This report was verified electronically.
[2016-12-21 06:32] LABS: CALCIUM-PROTEIN CORRECTED 8.5 MG/DL (8.5-10.1)
[2016-12-21] MEDS: ONDANSETRON HCL 4 MG/2 ML VIAL IV PUSH PRN (06:35)
[2016-12-21] MEDS ORDERED: SOD PHOSPHATE/SOD BIPHOSPHATE (ADULT) ENEMA 133ML RECTAL PRN (08:15)
[2016-12-21] MEDS ORDERED: GLUCAGON 1 MG/ML VIAL OTHER PRN (08:15)
[2016-12-21] MEDS ORDERED: BISACODYL 10 MG SUPP RECTAL PRN (08:15)
[2016-12-21] MEDS ORDERED: DEXTROSE 50% IN WATER 50 ML VIAL(D50) IV PRN (08:15)
[2016-12-21] MEDS ORDERED: ALBUMIN HUMAN 5% 12.5 GM/250 ML BOTTLE IV ONE (08:30)
[2016-12-21] MEDS: ceFAZolin 2 GM PREMIX 50 ML IV SCH ×3 (08:46→23:31)
[2016-12-21] MEDS: ASPIRIN 81 MG CHEW TAB PO SCH (08:48)
[2016-12-21] MEDS: CLOPIDOGREL 75 MG TAB PO SCH (08:48)
[2016-12-21] MEDS: AMIODARONE 200 MG TAB PO SCH ×2 (08:49→20:28)
[2016-12-21] MEDS: MULTIVITAMINS/MINERALS THERAPEUTIC TAB PO SCH (08:53)
[2016-12-21] MEDS: DOCUSATE SODIUM 100 MG CAP PO SCH ×2 (08:53→20:28)
[2016-12-21] MEDS: MAGNESIUM HYDROXIDE SUSP 30 ML CUP PO SCH (08:53)
[2016-12-21] MEDS ORDERED: MULTIVITAMIN INJ 10 ML, THIAMINE INJ 500 MG, FOLIC ACID INJ 1 MG in SODIUM CHLORID 0.9%... IV SCH (09:00)
[2016-12-21] MEDS: SODIUM CHLORIDE 0.9% FLUSH 10 ML FLUSH IV FLUSH SCH ×2 (09:00→20:28)
--- NOTE | 2016-12-21 09:20 | PD.CAR.PN ---
CVT Progress Note CVT: POD #: 1 Subjective/Hospital Course: 81/ male / hx of CAD / stent LAD/ CIRC, with anginal symptoms , re-cath by Dr Padilla, found to have 90% ostial circ stenosis with widely patent stents EF 60 % PMH: CAD/ stent / MD, hypothyroidism , gastritis, GERD Surgery: 12/20 Off-pump Coronary Artery Bypass Grafting x 1 with reverse saphenous vein graft to the terminal left Circumflex artery Right Leg Endoscopic Vein [place] Intraoperative Vein Mapping. extubated post op / +3200cc crystalloid, 500cc cell saver, 12/21 + 3 liters in 24hrs/ chest tube -220cc/ 12 hrs on nasal cannula 3 liters, up in chair BP labile, still on low dose Jorge, weaning off steroids will consider diuresing later, start BB this pm if possible pt is on ASA, statin, plavix, amiodarone transfer to stepdown later today, when BP more and stable and off Jorge gtt Objective: GENERAL: awake and alert SKIN: Warm and dry./ prevena dressing to chest , liset wrap to right leg HEAD: Normocephalic. EYES: No scleral icterus. No injection or drainage. NECK: Supple, trachea midline. No JVD or lymphadenopathy. CARDIOVASCULAR: Regular rate and rhythm without murmurs, gallops, or rubs. RESPIRATORY: Few basilar crackles Breath sounds equal bilaterally. No accessory muscle use. chest tube to wall suction, no air leak GASTROINTESTINAL: Abdomen soft, non-tender, nondistended. MUSCULOSKELETAL: No cyanosis, or edema. BACK: Nontender without obvious deformity. No CVA tenderness. Vital Signs Date Time Temp Pulse Resp B/P Pulse Ox O2 Delivery O2 Flow Rate FiO2 12/21/16 07:42 95 Nasal Cannula 3.00 12/21/16 07:42 98.4 87 18 111/60 95 12/21/16 07:00 89 12/21/16 04:00 96 12/21/16 04:00 94 Nasal Cannula 3.00 12/21/16 04:00 98.8 97 18 94/53 94 12/21/16 00:00 62 12/21/16 00:00 95 Nasal Cannula 3.00 12/21/16 00:00 97.6 83 16 92/43 95 12/20/16 20:00 78 12/20/16 20:00 97.3 79 18 106/50 94 12/20/16 20:00 94 Nasal Cannula 3.00 12/20/16 15:00 96.4 66 18 75/41 93 12/20/16 15:00 67 12/20/16 15:00 93 Nasal Cannula 4.00 12/20/16 12:25 65 12/20/16 11:30 94 Nasal Cannula 4.00 12/20/16 11:25 95 Nasal Cannula 5 12/20/16 11:07 96.0 12/20/16 11:00 50 12/20/16 11:00 99 Mechanical Ventilator 50 12/20/16 11:00 96.0 64 16 95/50 99 12/20/16 10:55 98 60 Labs: Laboratory Tests Test 12/21/16 04:45 White Blood Count 12.4 TH/MM3 (4.0-11.0) Red Blood Count 2.48 MIL/MM3 (4.50-5.90) Hemoglobin 7.9 GM/DL (13.0-17.0) Hematocrit 23.3 % (39.0-51.0) Mean Corpuscular Volume 94.0 FL (80.0-100.0) Mean Corpuscular Hemoglobin 31.9 PG (27.0-34.0) Mean Corpuscular Hemoglobin 34.0 % Concent (32.0-36.0) Red Cell Distribution Width 14.2 % (11.6-17.2) Platelet Count 140 TH/MM3 (150-450) Mean Platelet Volume 8.9 FL (7.0-11.0) Sodium Level 141 MEQ/L (136-145) Potassium Level 4.1 MEQ/L (3.5-5.1) Chloride Level 109 MEQ/L (98-107) Carbon Dioxide Level 24.5 MEQ/L (21.0-32.0) Anion Gap 8 MEQ/L (5-15) Blood Urea Nitrogen 16 MG/DL (7-18) Creatinine 0.90 MG/DL (0.60-1.30) Estimat Glomerular Filtration 81 ML/MIN (>89) Rate Random Glucose 105 MG/DL (74-106) Calcium Level 7.2 MG/DL (8.5-10.1) Protein Corrected Calcium 8.5 MG/DL (8.5-10.1) Magnesium Level 2.1 MG/DL (1.5-2.5) Total Protein 4.7 GM/DL (6.4-8.2) Result Diagram: 12/21/165 12/21/16444 Telemetry: NSR (1) CAD (coronary artery disease) (2) S/P CABG x 1 Plan: on ASA, statin , consider BB this pm when BP more stable pulm toileting nebs, ezpap, acapella OOB/ ambulate wean 02 consider diuresis later today CM for HHC eval at [facility] (3) Hypothyroid Plan: resume Synthroid (4) Hypertension Plan: hold home BP meds on lisinopril and metoprolol 50mg bid at home (5) GERD (gastroesophageal reflux disease) Plan: on PPI (6) Blood loss anemia Plan: start ferrous sulfate/ recheck H&H in am Deirdre Livingston December 21, 2016 09:20
--- NOTE | 2016-12-21 09:24 | HHI.FF ---
Face to Face Verification Diagnosis: (1) Chest pain (2) CAD (coronary artery disease) (3) S/P CABG x 1 (4) Hypothyroidism (5) Blood loss anemia (6) GERD (gastroesophageal reflux disease) (7) Hypertension Home Health Nursing Order: Signs/symptoms of disease process Wound care and dressing changes Nursing assessment with vital signs Instructions: Heart and Vascular Surgery patients *Special attention to sternal dressing Mandatory frequency Assess and evaluation, 4 days in a row The next week 3X week 2 times a week for 4 weeks 1 time a week for 5 weeks Schedule Heart and Vascular patients for full 60 day certification period Initial visit Review Open Heart Surgery Discharge Instructions (Sternal precautions, Activity, Elastic hose, Incision care, Driving, Incentive spirometry, Smoking, [place], Work and other) Need Betadine to paint incision Medication reconciliation Importance of follow up care/ check on appointments Make calendar record temperature daily When to call [facility] nurse, review instructions, phone list Incentive Spirometry, demonstration Visit 1- Begin discharge instruction for patient family and/ or caregiver using teach back method- Signs and symptoms of infection Disease characteristics Medicines and side effects Foods and nutrition/ appetite Infection control/ hand washing/ hygiene Visit 2- Continue teaching Discharge instructions- include additional information on smoking cessation , sternal dressing (sternal vac) Visit 3- Continue teaching- Cough and deep breathing, incision monitoring. Choose my plate Visit 4- Continue teaching- Discuss limitations Discuss how they are feeling Discuss progress toward goals Remaining visits- continue teaching and monitoring PREVENA Single Use Negative Wound Therapy System Caregiver Instruction Sheet 1. A Prevena dressing system was applied to the chest incision during surgery , to promote wound healing. It works via a suction device (negative pressure wound therapy) to remove low to moderate levels of exudate (drainage) and infectious materials. We recommend that the device stay in place for up to seven days, from day of surgery. 2. Day of Surgery____/ Day of Removal ____/ 3. The dressing should only be removed by a health personal carer. Please arrange removal of device to coincide with Home Health visit and or with Nursing staff at Rehab 4. If skin reddening or irritation of skin occurs, or excessive drainage, please notify the Cardiovascular Surgeons office at [phone]. 5. Light showering is permissible; however the pump should be disconnected and placed in safe location, where it will not get wet. The dressing should not be exposed to direct spray or submerged in water. No bath tub / shower only. Ensure the end of the tubing attached to the dressing is facing down so that water does not enter the top of the tube. 6. To remove Prevena dressing: press purple button to turn off device / remove the suction. Then disconnect the tubing from the pump. The fixation strips should be stretched away from the skin and the dressing lifted at one corner and peeled back until it has been fully removed. 7. After removal, it is ok to shower daily using liquid dial soap and clean wash cloth, rinse and pat dry, and leave incision open to air dry. For any concerns regarding Prevena dressing, and or wounds, please contact [place] Riggins, patient navigator at [phone] or notify the Cardiovascular Surgeons office at [phone]. Incentive spirometry Q1 hr x 10, while awake, also use acapella device hourly whole awake Sternal Breast Bone Precautions: NO pushing or pulling, ( pt must use sternal pillow to support chest with all activities and with coughing ( takes up to 3 months breast bone to heal ) Daily incision care: ok to shower daily, no tub bath. Wash all incisions with liquid dial soap, clean wash cloth to each site, rinse and pat dry. Observe for any signs of infection, such as drainage which is dark yellow, sharma, green or foul smelling. Immediately report to the surgeon any drainage from the chest incision, or legs, and for any abnormal drainage from the chest tube sites. Notify surgeon if any temp >101.5 degrees F. When specialty dressing removed/ or if you do not have one, continue to shower daily as above, then rinse and pat incision dry and paint with betadine daily x 5 days. Allow steri strips to fall off if you have any. Avoid lotions, creams, salves, oils, etc. for the first month Please see attached forms for additional instructions regarding post Open Heart specialty wound vacuum dressings. SOLA or Prevena , Dressing to be removed by Nursing staff on F/U appointment: as per DC instructions: PCP in 2 weeks, CV surgeon 2 weeks, Audio Visual Secretary 3-4 weeks For any questions regarding incisions/ dressing / meds / post op care or above Symptoms, Tuesday 8am-5pm Heart & Vascular Surgery Office ( Dr. Sigala & Dr. Casas), After Hours / Nights (5pm -8am) Weekends and Holidays Please call [facility] ([facility]) Charge Nurse I have seen patient Ramón Stewart on 12/21/16. My clinical findings support the need for the requested home health care services because: Deconditioned w/ increased weakness I certify that my clinical findings support that this patient is homebound because: Post-op weakness Deirdre Livingston December 21, 2016 09:24
[2016-12-21] MEDS: INSULIN ASPART SUPPLEMENTAL SCALE SQ SCH ×4 (10:00→22:00)
[2016-12-21] MEDS: DORZOLAMIDE/TIMOLOL OPTH SOLN 10 ML BTL EACH EYE SCH ×2 (10:12→20:28)
[2016-12-21] MEDS: RESP: ALBUTEROL 2.5 MG/IPRATROPIUM 0.5 MG NEB (SCH) NEB (13:44)
--- NOTE | 2016-12-21 15:12 | EKG ---
Date Performed: 12/21/2016 Time Performed: 05:07:02 PTAGE: 81 years EKG: Sinus tachycardia Lateral ST-T changes are nonspecific Compared to the previous tracing sin us rate has increased, nonspecific changes are slightly more prominent Borderline ECG PREVIOUS TRACING : 11/24/2016 18.42 DOCTOR: Fili Casas Interpretating Date/Time 12/21/2016 15:11:35
[2016-12-21] MEDS: FERROUS SULFATE 325 MG (65 MG ELEMENTAL IRON) TAB PO SCH (16:13)
[2016-12-21] MEDS: ATORVASTATIN 20 MG TAB PO SCH (20:29)
[2016-12-21] MEDS: METOPROLOL TARTRATE 25 MG TAB PO SCH (20:29)
[2016-12-21] MEDS: SENNOSIDES 8.6 MG TAB PO SCH (20:30)
[2016-12-21] MEDS: LATANOPROST 0.005% OPHT SOLN 2.5 ML BTL EACH EYE SCH (23:31)
[2016-12-22] VITALS (29 sets, daily range): BP systolic 107–134; BP diastolic 60–80; PULSE 78–100; RESP 16–18; TEMP 97.9–99; O2SAT 94–98
[2016-12-22] MEDS: INSULIN ASPART SUPPLEMENTAL SCALE SQ SCH ×4 (03:00→21:07)
[2016-12-22] MEDS: PANTOPRAZOLE SOD 40 MG DELAYED RELEASE TAB PO SCH (05:08)
[2016-12-22 06:25] LABS: AUTOMATED NEUTROPHIL # 7.9 TH/MM3 (1.8-7.7); BASOPHIL % 0.3 % (0.0-2.0); EOSINOPHIL # 0.1 TH/MM3 (0-0.4); EOSINOPHIL % 1.4 % (0.0-4.0); LYMPH % 13.5 % (9.0-44.0); LYMPHOCYTE # 1.4 TH/MM3 (1.0-4.8); MEAN CELL VOLUME 95.5 FL (80.0-100.0); MEAN CORPUSCULAR HEMOGLOBIN 31.2 PG (27.0-34.0); MEAN CORPUSCULAR HGB CONC 32.7 % (32.0-36.0); MONO % 8.6 % (0.0-8.0); NEUT % 76.2 % (16.0-70.0); PLATELET COUNT 118 TH/MM3 (150-450); RED BLOOD COUNT 2.15 MIL/MM3 (4.50-5.90); WHITE BLOOD COUNT 10.4 TH/MM3 (4.0-11.0)
[2016-12-22 06:29] LABS: HEMO FLAGS DIFF FINAL
[2016-12-22 06:30] LABS: HEMATOCRIT 20.5 % (39.0-51.0)
[2016-12-22 07:09] LABS: MAGNESIUM 2.3 MG/DL (1.5-2.5)
[2016-12-22] MEDS ORDERED: FUROSEMIDE 20 MG/2 ML VIAL IV PUSH ONE (07:45)
[2016-12-22] MEDS: RESP: ALBUTEROL 2.5 MG/IPRATROPIUM 0.5 MG NEB (SCH) NEB ×3 (08:02→20:03)
[2016-12-22] MEDS: DORZOLAMIDE/TIMOLOL OPTH SOLN 10 ML BTL EACH EYE SCH ×2 (08:26→21:09)
[2016-12-22] MEDS: SODIUM CHLORIDE 0.9% FLUSH 10 ML FLUSH IV FLUSH SCH ×2 (08:26→21:08)
[2016-12-22] MEDS: AMIODARONE 200 MG TAB PO SCH ×2 (08:27→21:00)
[2016-12-22] MEDS: METOPROLOL TARTRATE 25 MG TAB PO SCH ×2 (08:27→21:00)
[2016-12-22] MEDS: MULTIVITAMINS/MINERALS THERAPEUTIC TAB PO SCH (08:27)
[2016-12-22] MEDS: DOCUSATE SODIUM 100 MG CAP PO SCH ×2 (08:27→21:01)
[2016-12-22] MEDS: MAGNESIUM HYDROXIDE SUSP 30 ML CUP PO SCH (08:27)
[2016-12-22] MEDS: POLYETHYLENE GLYCOL 17 GM PKG PO SCH (08:27)
[2016-12-22] MEDS: ASPIRIN 81 MG CHEW TAB PO SCH (08:27)
[2016-12-22] MEDS: CLOPIDOGREL 75 MG TAB PO SCH (08:27)
[2016-12-22] MEDS ORDERED: PILL SPLITTER OTHER PRN (08:45)
[2016-12-22] MEDS ORDERED: METOPROLOL TARTRATE 25 MG TAB PO SCH (09:00)
--- NOTE | 2016-12-22 09:55 | PD.CAR.PN ---
CVT Progress Note Subjective/Hospital Course: 81/ male / hx of CAD / stent LAD/ CIRC, with anginal symptoms , re-cath by Dr Padilla, found to have 90% ostial circ stenosis with widely patent stents EF 60 % PMH: CAD/ stent / [place], hypothyroidism , gastritis, GERD Surgery: 12/20 Off-pump Coronary Artery Bypass Grafting x 1 with reverse saphenous vein graft to the terminal left Circumflex artery Right Leg Endoscopic Vein [place] Intraoperative Vein Mapping. extubated post op / +3200cc crystalloid, 500cc cell saver, 12/21 + 3 liters in 24hrs/ chest tube -220cc/ 12 hrs on nasal cannula 3 liters, up in chair BP labile, still on low dose Jorge, weaning off steroids will consider diuresing later, start BB this pm if possible pt is on ASA, statin, plavix, amiodarone transfer to stepdown later today, when BP more and stable and off Jorge gtt 12/22 pt up in chair, on nasal cannula HGB 6.7/ will recheck at noon/ on ferrous sulfate/ lasix IV given + 4kg/ BP stable eval for chest tube removal later this am chest tube drainage 400cc/ 24hrs/ 10cc/ 12 ? Objective: GENERAL: A&O x 3 SKIN: Warm and dry. prevena dressing to chest / incision intact right leg HEAD: Normocephalic./ right eye petechial hemorrhage EYES: No scleral icterus. No injection or drainage. NECK: Supple, trachea midline. No JVD or lymphadenopathy. CARDIOVASCULAR: Regular rate and rhythm without murmurs, gallops, or rubs. RESPIRATORY: diminished in bases Breath sounds equal bilaterally. No accessory muscle use. chest tube to wall suction/ no air leak GASTROINTESTINAL: Abdomen soft, non-tender, nondistended. MUSCULOSKELETAL: No cyanosis, or edema. BACK: Nontender without obvious deformity. No CVA tenderness. Vital Signs Date Time Temp Pulse Resp B/P Pulse Ox O2 Delivery O2 Flow Rate FiO2 12/22/16 08:02 95 21 12/22/16 07:34 98.4 95 17 126/65 96 12/22/16 07:00 86 12/22/16 06:00 90 12/22/16 05:00 86 12/22/16 04:15 Nasal Cannula 2.00 12/22/16 04:00 98.4 89 18 134/68 98 12/22/16 04:00 88 12/22/16 04:00 98 Nasal Cannula 2.00 12/22/16 03:00 82 12/22/16 02:00 86 12/22/16 01:00 86 12/22/16 00:00 84 12/22/16 00:00 98.1 84 18 112/62 97 12/22/16 00:00 97 Nasal Cannula 2.00 12/21/16 23:00 80 12/21/16 22:00 82 12/21/16 21:00 80 12/21/16 20:00 97 12/21/16 20:00 96 Nasal Cannula 2.00 12/21/16 20:00 98.3 97 18 117/60 96 12/21/16 18:00 92 12/21/16 17:00 92 12/21/16 16:00 82 12/21/16 15:00 98.0 100 18 108/76 94 12/21/16 15:00 89 12/21/16 15:00 94 Nasal Cannula 2.00 12/21/16 13:44 95 Nasal Cannula 2.00 12/21/16 11:07 88 12/21/16 11:05 98 Nasal Cannula 2.00 12/21/16 11:05 98.5 87 20 110/66 98 Labs: Laboratory Tests Test 12/22/16 06:15 White Blood Count 10.4 TH/MM3 (4.0-11.0) Red Blood Count 2.15 MIL/MM3 (4.50-5.90) Hemoglobin 6.7 GM/DL (13.0-17.0) Hematocrit 20.5 % (39.0-51.0) Mean Corpuscular Volume 95.5 FL (80.0-100.0) Mean Corpuscular Hemoglobin 31.2 PG (27.0-34.0) Mean Corpuscular Hemoglobin 32.7 % Concent (32.0-36.0) Red Cell Distribution Width 15.0 % (11.6-17.2) Platelet Count 118 TH/MM3 (150-450) Mean Platelet Volume 8.7 FL (7.0-11.0) Neutrophils (%) (Auto) 76.2 % (16.0-70.0) Lymphocytes (%) (Auto) 13.5 % (9.0-44.0) Monocytes (%) (Auto) 8.6 % (0.0-8.0) Eosinophils (%) (Auto) 1.4 % (0.0-4.0) Basophils (%) (Auto) 0.3 % (0.0-2.0) Neutrophils # (Auto) 7.9 TH/MM3 (1.8-7.7) Lymphocytes # (Auto) 1.4 TH/MM3 (1.0-4.8) Monocytes # (Auto) 0.9 TH/MM3 (0-0.9) Eosinophils # (Auto) 0.1 TH/MM3 (0-0.4) Basophils # (Auto) 0.0 TH/MM3 (0-0.2) CBC Comment DIFF FINAL Differential Comment Sodium Level 140 MEQ/L (136-145) Potassium Level 4.0 MEQ/L (3.5-5.1) Chloride Level 108 MEQ/L (98-107) Carbon Dioxide Level 24.0 MEQ/L (21.0-32.0) Anion Gap 8 MEQ/L (5-15) Blood Urea Nitrogen 16 MG/DL (7-18) Creatinine 0.94 MG/DL (0.60-1.30) Estimat Glomerular Filtration 77 ML/MIN (>89) Rate Random Glucose 89 MG/DL (74-106) Calcium Level 7.9 MG/DL (8.5-10.1) Magnesium Level 2.3 MG/DL (1.5-2.5) Result Diagram: 12/22/1615 12/22/1615 Telemetry: NSR (1) CAD (coronary artery disease) (2) S/P CABG x 1 Plan: on ASA, statin , BB pulm toileting nebs, ezpap, acapella OOB/ ambulate wean 02 diuresis given CM for HHC eval at DC (3) Hypothyroid Plan: resume Synthroid (4) Hypertension Plan: hold home BP meds on lisinopril and metoprolol 50mg bid at home (5) GERD (gastroesophageal reflux disease) Plan: on PPI (6) Blood loss anemia Plan: ferrous sulfate/ recheck H&H in am > 6.7/ diuresed / hemodiluted recheck H&H at 12 noon Deirdre Livingston December 22, 2016 09:55
[2016-12-22] MEDS: LEVOTHYROXINE SODIUM 150 MCG TAB PO SCH (11:59)
[2016-12-22] MEDS: FERROUS SULFATE 325 MG (65 MG ELEMENTAL IRON) TAB PO SCH ×2 (11:59→16:53)
[2016-12-22 13:46] LABS: HEMATOCRIT 22.9 % (39.0-51.0); REVIEW FLAG FINAL
[2016-12-22] MEDS: ATORVASTATIN 20 MG TAB PO SCH (21:00)
[2016-12-22] MEDS: ACETAMINOPHEN/HYDROcodone 325 MG/5 MG TAB PO PRN (21:01)
[2016-12-22] MEDS: SENNOSIDES 8.6 MG TAB PO SCH (21:01)
[2016-12-22] MEDS: LATANOPROST 0.005% OPHT SOLN 2.5 ML BTL EACH EYE SCH (21:09)
[2016-12-23] VITALS (38 sets, daily range): BP systolic 110–140; BP diastolic 58–79; PULSE 71–89; RESP 16–19; TEMP 97.2–99; O2SAT 84–99
--- NOTE | 2016-12-23 05:08 | RADRPT ---
EXAM DATE/TIME: 12/23/2016 04:31 [facility] COMPARISON: CHEST SINGLE AP, December 21, 2016, 5:00. INDICATIONS : Shortness of breath, possible pulmonary disease. MEDICAL HISTORY : Hypercholesterolemia. Hypertension Hiatal hernia. SURGICAL HISTORY : CABG. Coronary artery stent. ENCOUNTER: Subsequent ACUITY: 3 days PAIN SCORE: Non-responsive. LOCATION: Bilateral chest FINDINGS: A single AP semierect view of the chest was obtained and again demonstrates the patient is status pos t median sternotomy. The right internal jugular central venous line remains in place. There's been in terval removal of mediastinal chest tubes with no pneumothorax. There is patchy opacity remaining at the left lung base with mild blunting of the left costophrenic angle consistent with a small effusion . The heart size appears mildly prominent with no perihilar edema. There has been interval improvemen t in the previously noted opacity in the left perihilar region on the other study. CONCLUSION: 1. Interval removal of mediastinal chest tubes with no pneumothorax. 2. Improved aeration and decreased pulmonary opacity with mild residual at the left lung base. 3. Small left effusion. Ollie Webster MD on December 23, 2016 at 5:05 Board Certified Radiologist. This report was verified electronically.
[2016-12-23] MEDS: LEVOTHYROXINE SODIUM 150 MCG TAB PO SCH (05:55)
[2016-12-23] MEDS: PANTOPRAZOLE SOD 40 MG DELAYED RELEASE TAB PO SCH (05:56)
[2016-12-23] MEDS: INSULIN ASPART SUPPLEMENTAL SCALE SQ SCH ×4 (05:59→21:00)
[2016-12-23 06:22] LABS: MEAN CELL VOLUME 94.2 FL (80.0-100.0); MEAN CORPUSCULAR HEMOGLOBIN 32.3 PG (27.0-34.0); MEAN CORPUSCULAR HGB CONC 34.3 % (32.0-36.0); PLATELET COUNT 125 TH/MM3 (150-450); RED BLOOD COUNT 1.96 MIL/MM3 (4.50-5.90); RED CELL DISTRIBUTION WIDTH 14.8 % (11.6-17.2); WHITE BLOOD COUNT 8.2 TH/MM3 (4.0-11.0)
[2016-12-23 06:31] LABS: REVIEW FLAG FINAL
[2016-12-23 06:33] LABS: HEMATOCRIT 18.4 % (39.0-51.0)
[2016-12-23 06:47] LABS: ANION GAP 8 MEQ/L (5-15); BICARBONATE 26.8 MEQ/L (21.0-32.0); BLOOD UREA NITROGEN 17 MG/DL (7-18); CHLORIDE 107 MEQ/L (98-107); GLOMERULAR FILTRATION RATE 80 ML/MIN (>89); MAGNESIUM 2.3 MG/DL (1.5-2.5); POTASSIUM 3.7 MEQ/L (3.5-5.1); SODIUM (NA) 142 MEQ/L (136-145)
[2016-12-23] MEDS: RESP: ALBUTEROL 2.5 MG/IPRATROPIUM 0.5 MG NEB (SCH) NEB (07:21)
[2016-12-23] MEDS: ASPIRIN 81 MG CHEW TAB PO SCH (08:49)
[2016-12-23] MEDS: AMIODARONE 200 MG TAB PO SCH ×2 (08:49→20:34)
[2016-12-23] MEDS: MULTIVITAMINS/MINERALS THERAPEUTIC TAB PO SCH (08:49)
[2016-12-23] MEDS: POLYETHYLENE GLYCOL 17 GM PKG PO SCH (08:49)
[2016-12-23] MEDS: DOCUSATE SODIUM 100 MG CAP PO SCH ×2 (08:49→20:34)
[2016-12-23] MEDS: MAGNESIUM HYDROXIDE SUSP 30 ML CUP PO SCH (08:49)
[2016-12-23] MEDS: SODIUM CHLORIDE 0.9% FLUSH 10 ML FLUSH IV FLUSH SCH ×2 (08:50→20:35)
[2016-12-23] MEDS: METOPROLOL TARTRATE 25 MG TAB PO SCH ×2 (08:50→20:34)
[2016-12-23] MEDS: DORZOLAMIDE/TIMOLOL OPTH SOLN 10 ML BTL EACH EYE SCH ×2 (08:51→20:35)
[2016-12-23 10:20] LABS: TRANSFERRIN IRON PROFILE 120 MG/DL (200-360)
[2016-12-23] MEDS ORDERED: POTASSIUM CHLORIDE 10 MEQ CONTROLLED RELEASE TAB PO ONE (11:00)
[2016-12-23] MEDS: FERROUS SULFATE 325 MG (65 MG ELEMENTAL IRON) TAB PO SCH ×2 (11:45→17:17)
--- NOTE | 2016-12-23 15:27 | PD.CAR.PN ---
CVT Progress Note CVT: POD #: 3 Subjective/Hospital Course: 81/ male / hx of CAD / stent LAD/ CIRC, with anginal symptoms , re-cath by Dr Padilla, found to have 90% ostial circ stenosis with widely patent stents EF 60 % PMH: CAD/ stent / [place], hypothyroidism , gastritis, GERD Surgery: 12/20 Off-pump Coronary Artery Bypass Grafting x 1 with reverse saphenous vein graft to the terminal left Circumflex artery Right Leg Endoscopic Vein [place] Intraoperative Vein Mapping. extubated post op / +3200cc crystalloid, 500cc cell saver, 12/21 + 3 liters in 24hrs/ chest tube -220cc/ 12 hrs on nasal cannula 3 liters, up in chair BP labile, still on low dose Jorge, weaning off steroids will consider diuresing later, start BB this pm if possible pt is on ASA, statin, plavix, amiodarone transfer to stepdown later today, when BP more and stable and off Jorge gtt 12/22 pt up in chair, on nasal cannula HGB 6.7/ will recheck at noon/ on ferrous sulfate/ lasix IV given + 4kg/ BP stable eval for chest tube removal later this am chest tube drainage 400cc/ 24hrs/ 10cc/ 12 ? 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 prevana to chest / incision intact leg HEAD: Normocephalic. EYES: No scleral icterus. No injection or drainage. NECK: Supple, trachea midline. No JVD or lymphadenopathy. CARDIOVASCULAR: Regular rate and rhythm without murmurs, gallops, or rubs. RESPIRATORY: Breath sounds equal bilaterally. No accessory muscle use. GASTROINTESTINAL: Abdomen soft, non-tender, nondistended. MUSCULOSKELETAL: No cyanosis, or edema. BACK: Nontender without obvious deformity. No CVA tenderness. Vital Signs Date Time Temp Pulse Resp B/P Pulse Ox O2 Delivery O2 Flow Rate FiO2 12/23/16 14:58 98.7 78 18 117/62 97 12/23/16 14:53 98.7 81 18 111/59 99 12/23/16 13:25 79 12/23/16 12:00 72 5/18/17 11:44 98.0 73 18 118/65 97 12/23/16 11:44 97 Room Air 12/23/16 11:44 76 12/23/16 10:01 79 12/23/16 09:00 89 12/23/16 08:00 88 12/23/16 08:00 96 Room Air 12/23/16 08:00 98.3 87 18 119/63 96 12/23/16 07:21 95 21 12/23/16 07:00 83 12/23/16 06:00 84 12/23/16 05:00 76 12/23/16 04:04 77 12/23/16 03:40 97.2 81 16 127/68 97 12/23/16 03:40 97 Room Air 12/23/16 03:00 71 12/23/16 02:00 74 12/23/16 01:00 74 12/23/16 00:00 78 12/22/16 23:45 97.9 80 16 107/60 94 12/22/16 23:45 94 Room Air 12/22/16 23:00 80 12/22/16 22:00 82 12/22/16 21:00 94 12/22/16 20:03 98 21 12/22/16 20:00 96 12/22/16 19:45 96 Room Air 12/22/16 19:45 98.7 100 18 124/64 96 12/22/16 19:00 85 12/22/16 18:00 87 12/22/16 17:00 81 12/22/16 16:00 83 Labs: Laboratory Tests Test 12/23/16 12/23/16 05:30 12:30 White Blood Count 8.2 TH/MM3 (4.0-11.0) Red Blood Count 1.96 MIL/MM3 (4.50-5.90) Hemoglobin 6.3 GM/DL (13.0-17.0) Hematocrit 18.4 % (39.0-51.0) Mean Corpuscular Volume 94.2 FL (80.0-100.0) Mean Corpuscular Hemoglobin 32.3 PG (27.0-34.0) Mean Corpuscular Hemoglobin 34.3 % Concent (32.0-36.0) Red Cell Distribution Width 14.8 % (11.6-17.2) Platelet Count 125 TH/MM3 (150-450) Mean Platelet Volume 8.6 FL (7.0-11.0) Sodium Level 142 MEQ/L (136-145) Potassium Level 3.7 MEQ/L (3.5-5.1) Chloride Level 107 MEQ/L (98-107) Carbon Dioxide Level 26.8 MEQ/L (21.0-32.0) Anion Gap 8 MEQ/L (5-15) Blood Urea Nitrogen 17 MG/DL (7-18) Creatinine 0.91 MG/DL (0.60-1.30) Estimat Glomerular Filtration 80 ML/MIN (>89) Rate Random Glucose 97 MG/DL (74-106) Calcium Level 7.7 MG/DL (8.5-10.1) Magnesium Level 2.3 MG/DL (1.5-2.5) Iron Level 18 MCG/DL (65-175) Total Iron Binding Capacity 168 MCG/DL (250-450) Percent Iron Saturation 10.7 % (20-50) Blood Type O POSITIVE Antibody Screen NEGATIVE Crossmatch Leukocyte-Reduced Red Blood Cells Blood Bank Comment Result Diagram: 12/23/1652912/23/16529 Telemetry: NSR (1) CAD (coronary artery disease) (2) S/P CABG x 1 Plan: on ASA, statin , BB pulm toileting nebs, ezpap, acapella OOB/ ambulate wean 02 CM for rehab eval at DC (3) Hypothyroid Plan: resume Synthroid (4) Hypertension Plan: on BB on lisinopril and metoprolol 50mg bid at home (5) GERD (gastroesophageal reflux disease) Plan: on PPI (6) Blood loss anemia Plan: ferrous sulfate/ recheck H&H in am > 6.7> 7.3 > 6.3 for 2 units PRBC await iron studies Deirdre Livingston December 23, 2016 15:26
[2016-12-23] MEDS: FUROSEMIDE 20 MG/2 ML VIAL IV PUSH PRN ×2 (17:17→22:24)
[2016-12-23] MEDS: ATORVASTATIN 20 MG TAB PO SCH (20:34)
[2016-12-23] MEDS: SENNOSIDES 8.6 MG TAB PO SCH (20:34)
[2016-12-23] MEDS: LATANOPROST 0.005% OPHT SOLN 2.5 ML BTL EACH EYE SCH (20:35)
[2016-12-24] VITALS (13 sets, daily range): BP systolic 127–131; BP diastolic 70–74; PULSE 73–85; RESP 16–19; TEMP 98.4–98.8; O2SAT 94–98
[2016-12-24 05:28] LABS: HEMATOCRIT 25.9 % (39.0-51.0); MEAN CELL VOLUME 89.3 FL (80.0-100.0); MEAN CORPUSCULAR HEMOGLOBIN 31.6 PG (27.0-34.0); MEAN CORPUSCULAR HGB CONC 35.4 % (32.0-36.0); PLATELET COUNT 172 TH/MM3 (150-450); RED CELL DISTRIBUTION WIDTH 17.7 % (11.6-17.2); REVIEW FLAG FINAL; WHITE BLOOD COUNT 9.4 TH/MM3 (4.0-11.0)
[2016-12-24 05:38] LABS: BICARBONATE 27.9 MEQ/L (21.0-32.0); POTASSIUM 3.8 MEQ/L (3.5-5.1)
[2016-12-24] MEDS: INSULIN ASPART SUPPLEMENTAL SCALE SQ SCH (06:17)
[2016-12-24] MEDS: LEVOTHYROXINE SODIUM 150 MCG TAB PO SCH (06:26)
[2016-12-24] MEDS: PANTOPRAZOLE SOD 40 MG DELAYED RELEASE TAB PO SCH (06:26)
[2016-12-24] MEDS: ASPIRIN 81 MG CHEW TAB PO SCH (08:58)
[2016-12-24] MEDS: DOCUSATE SODIUM 100 MG CAP PO SCH (08:58)
[2016-12-24] MEDS: AMIODARONE 200 MG TAB PO SCH (08:58)
[2016-12-24] MEDS: MULTIVITAMINS/MINERALS THERAPEUTIC TAB PO SCH (08:58)
[2016-12-24] MEDS: POLYETHYLENE GLYCOL 17 GM PKG PO SCH (09:00)
[2016-12-24] MEDS ORDERED: METOPROLOL TARTRATE 25 MG TAB PO SCH (09:00)
[2016-12-24] MEDS: MAGNESIUM HYDROXIDE SUSP 30 ML CUP PO SCH (09:00)
[2016-12-24] MEDS: DORZOLAMIDE/TIMOLOL OPTH SOLN 10 ML BTL EACH EYE SCH (09:00)
[2016-12-24] MEDS: SODIUM CHLORIDE 0.9% FLUSH 10 ML FLUSH IV FLUSH SCH (09:00)
[2016-12-24] MEDS ORDERED: LISI-519 PO (09:32)
[2016-12-24] MEDS ORDERED: FERR325T PO (09:32)
[2016-12-24] MEDS ORDERED: AMIO200T PO (09:32)
[2016-12-24] MEDS ORDERED: DOCU1CAP39 PO (09:32)
[2016-12-24] MEDS ORDERED: METO25TA3 PO (09:32)
--- NOTE | 2016-12-24 09:45 | HHI.DS ---
Discharge Summary Admission Date December 20, 2016 at 05:26 Discharge Date: December 24, 2016 Admitting Diagnosis chest pain / hx of CAD stent (1) Non-STEMI (non-ST elevated myocardial infarction) Diagnosis: Principal (2) S/P CABG x 1 Diagnosis: Secondary (3) Blood loss anemia Diagnosis: Secondary (4) CAD (coronary artery disease) Diagnosis: Principal (5) GERD (gastroesophageal reflux disease) (6) Hypertension Diagnosis: Principal (7) Hypothyroid Diagnosis: Principal (8) Iron (Fe) deficiency anemia Diagnosis: Principal Procedures 1. Off-pump Coronary Artery Bypass Grafting x 1 with reverse saphenous vein graft to the terminal left Circumflex artery 12/20 2. Right Leg Endoscopic Vein [place] 3. Intraoperative Vein Mapping. Brief History 81/ male / hx of CAD / stent LAD/ CIRC, with anginal symptoms , re-cath by Dr Padilla, found to have 90% ostial circ stenosis with widely patent stents EF 60 % PMH: CAD/ stent / [place], hypothyroidism , gastritis, GERD Surgery: 12/20 Off-pump Coronary Artery Bypass Grafting x 1 with reverse saphenous vein graft to the terminal left Circumflex artery Right Leg Endoscopic Vein [place] Intraoperative Vein Mapping. CBC/BMP: 12/24/16 0426 12/24/16 0426 Significant Findings Laboratory Tests Test 12/22/16 12/22/16 12/23/16 12/24/16 06:15 13:30 05:30 04:26 Red Blood Count 2.15 MIL/MM3 1.96 MIL/MM3 2.90 MIL/MM3 (4.50-5.90) (4.50-5.90) (4.50-5.90) Hemoglobin 6.7 GM/DL 7.6 GM/DL 6.3 GM/DL 9.2 GM/DL (13.0-17.0) (13.0-17.0) (13.0-17.0) (13.0-17.0) Hematocrit 20.5 % 22.9 % 18.4 % 25.9 % (39.0-51.0) (39.0-51.0) (39.0-51.0) (39.0-51.0) Platelet Count 118 TH/MM3 125 TH/MM3 (150-450) (150-450) Neutrophils (%) (Auto) 76.2 % (16.0-70.0) Monocytes (%) (Auto) 8.6 % (0.0-8.0) Neutrophils # (Auto) 7.9 TH/MM3 (1.8-7.7) Chloride Level 108 MEQ/L (98-107) Estimat Glomerular Filtration 77 ML/MIN (>89) 80 ML/MIN (>89) 75 ML/MIN (>89) Rate Calcium Level 7.9 MG/DL 7.7 MG/DL 8.1 MG/DL (8.5-10.1) (8.5-10.1) (8.5-10.1) Iron Level 18 MCG/DL (65-175) Total Iron Binding Capacity 168 MCG/DL (250-450) Percent Iron Saturation 10.7 % (20-50) Red Cell Distribution Width 17.7 % (11.6-17.2) Imaging Last Impressions Chest X-Ray 12/23/16 0600 Signed Impressions: Service Date/Time: December 04:31 - CONCLUSION: 1. Interval removal of mediastinal chest tubes with no pneumothorax. 2. Improved aeration and decreased pulmonary opacity with mild residual at the left lung base. 3. Small left effusion. Ollie Webster MD PE at Discharge GENERAL: SKIN: Warm and dry. prevena to chest / left leg HEAD: Normocephalic. EYES: No scleral icterus. No injection or drainage. NECK: Supple, trachea midline. No JVD or lymphadenopathy. CARDIOVASCULAR: Regular rate and rhythm without murmurs, gallops, or rubs. RESPIRATORY: Breath sounds equal bilaterally. No accessory muscle use. GASTROINTESTINAL: Abdomen soft, non-tender, nondistended. MUSCULOSKELETAL: No cyanosis, or edema. BACK: Nontender without obvious deformity. No CVA tenderness. Hospital Course Surgery: 12/20 Off-pump Coronary Artery Bypass Grafting x 1 with reverse saphenous vein graft to the terminal left Circumflex artery Right Leg Endoscopic Vein [place] Intraoperative Vein Mapping. extubated post op / +3200cc crystalloid, 500cc cell saver, 12/21 + 3 liters in 24hrs/ chest tube -220cc/ 12 hrs on nasal cannula 3 liters, up in chair BP labile, still on low dose Jorge, weaning off steroids will consider diuresing later, start BB this pm if possible pt is on ASA, statin, plavix, amiodarone transfer to stepdown later today, when BP more and stable and off Jorge gtt 12/22 pt up in chair, on nasal cannula HGB 6.7/ will recheck at noon/ on ferrous sulfate/ lasix IV given + 4kg/ BP stable eval for chest tube removal later this am chest tube drainage 400cc/ 24hrs/ 10cc/ 12 ? 5/18 HGB 7.3/ normocytic anemia iron levels pending / with ferritin blood loss anemia /drug induced from [facility] Plavix use / chronic anemia weaning off 02, otherwise doing well eval for rehab at discharge/ pt lives alone Pt Condition on Discharge: Good Discharge Disposition: Disch w/ Home Health Serv Discharge Instructions DIET: Follow Instructions for: Heart Healthy Diet, Diabetic Diet Activities you can perform: Shower Only-No Bath Activities to avoid: Lifting/Bending, Strenuous Activity, Driving Additional Activity Instructio: no lifting > 8lbs or gallon of milk Follow up Referrals: Cardiology PCP Follow-up SNF/SKILLED NURSING/HH with [facility] New Medications: Lisinopril (Lisinopril) 5 Mg Tab 5 MG PO DAILY Blood Pressure Management #30 Ref 2 TAB Amiodarone (Amiodarone) 200 Mg Tab 200 MG PO Q12HR heart rhythm #28 Ref 0 TAB Docusate Sodium (Dok) 100 Mg Cap 100 MG PO BID Constipation #60 Ref 0 CAP Ferrous Sulfate (Ferrous Sulfate) 325 Mg Tab 325 MG PO BID@12,17 anemia #60 Ref 1 TAB Metoprolol Tartrate (Metoprolol Tartrate) 25 Mg Tab 25 MG PO BID Blood Pressure Management #60 Ref 2 TAB Continued Medications: Aspirin DR (Aspirin Adult Low Strength) 81 Mg Tabdr 81 MG PO DAILY TAB Atorvastatin (Atorvastatin) 20 Mg Tab 20 MG PO HS Cholesterol Management #30 Ref 0 TAB Dorzolamide-Timolol Opth Drops (Dorzolamide-Timolol Opth Drops) 22.3-6.8 Mg/Ml Soln 1 DROP EACH EYE BID Glaucoma Ref 0 BOTTLE Latanoprost Opth Drops (Latanoprost Opth Drops) 0.005% Drops 1 DROP EACH EYE HS Refrigerate until opened. Glaucoma #2.5 Ref 0 ML Levothyroxine (Levothyroxine) 125 Mcg Tab 150 MCG PO DAILY Thyroid #30 Ref 0 TAB Temazepam (Temazepam) 15 Mg Cap 15 MG PO HS PRN INSOMNIA #30 Ref 0 CAP Discontinued Medications: Clopidogrel (Plavix) 75 Mg Tab 75 MG PO DAILY cad #30 TAB Lisinopril (Lisinopril) 10 Mg Tab 10 MG PO DAILY htn #30 Ref 0 TAB Metoprolol Tartrate (Metoprolol Tartrate) 50 Mg Tab 50 MG PO BID cad #60 Ref 0 TAB Deirdre Livingston December 24, 2016 09:45
[2016-12-24] MEDS ORDERED: MISC-163 (09:50)
[2016-12-24] MEDS ORDERED: WALKER WHEELS/F1 MIS (09:50)
[2016-12-24] MEDS ORDERED: PNEUMOCOCCAL POLYVALENT INJ 25 MCG/0.5 ML SYR IM ONE (10:00)
[2016-12-24] MEDS: FERROUS SULFATE 325 MG (65 MG ELEMENTAL IRON) TAB PO SCH (12:00)
== END 2016-12-24 12:25 | disposition home health service (06) | DRG 236 ==
LOC: HSDI 12-20 05:26 → HCVR 12-20 10:20 → HCIN 12-21 14:34
PROVIDERS: ADMIT Thoracic Surgery (Cardiothoracic Vascular Surgery); ATTEND Thoracic Surgery (Cardiothoracic Vascular Surgery)
PROC: 021009W Bypass Coronary Artery, One Artery from Aorta with Autologous Venous Tissue, Open Approach (ICD-10-PCS; principal; 2016-12-20 07:10)
PROC: 06BP4ZZ Excision of Right Saphenous Vein, Percutaneous Endoscopic Approach (ICD-10-PCS; 2016-12-20 07:10)
DX: I25.119 Atherosclerotic heart disease of native coronary artery with unspecified angina pectoris (principal); D50.0 Iron deficiency anemia secondary to blood loss (chronic); I10 Essential (primary) hypertension; I25.2 Old myocardial infarction; E78.5 Hyperlipidemia, unspecified; E03.9 Hypothyroidism, unspecified; K21.9 Gastro-esophageal reflux disease without esophagitis; K29.70 Gastritis, unspecified, without bleeding; Z95.5 Presence of coronary angioplasty implant and graft
CPT/HCPCS: 36430; 36556; 71010; 76937; 80048; 82728; 82948; 83540; 83550; 83735; 84155; 85014; 85018; 85025; 85027; 86850; 86900; 86901; 86920; 93005; 94002; 94150; 94640; 94664; 94667; 94668; C1768; J0131; J0690; J1644; J1815; J1817; J1885; J1940; J2250; J2370; J2405; J2440; J2710; J2720; J3010; J3370; J3475; J3480; J7050; J7060; J7120; P9016; P9021; P9045

== ENCOUNTER 2017-12-09 04:03 | Emergency (ER) | payer MEDICARE ==
[~2017-12-09 04:03] MED LIST changes: +AMIO200T PO; -ASPI1TAB91 PO; +ASPI81TA16 PO; +DOCU1CAP39 PO; +FERR325T PO; +LISI-519 PO; -LISI10TA3 PO; +METO25TA3 PO; -METO50TA PO; +MISC-163; -PLAV75TA29 PO; +WALKER WHEELS/F1 MIS
[2017-12-09 04:07] VITALS: BP 137/74; PULSE 89; RESP 18; TEMP 98.6; O2SAT 97
[2017-12-09 04:19] VITALS: BP 156/68; PULSE 88; RESP 20; O2SAT 96
[2017-12-09] MEDS ORDERED: oxyCODONE/ACETAMINOPHEN 5 MG/325 MG TAB PO ONE (05:15)
--- NOTE | 2017-12-09 05:44 | RADRPT ---
EXAM DATE/TIME: 12/09/2017 05:19 [facility] COMPARISON: CHEST SINGLE AP, December 23, 2016, 4:31. INDICATIONS : Pain. MEDICAL HISTORY : Myocardial infarction. Hypercholesterolemia. Hypertension Hiatal hernia. SURGICAL HISTORY : CABG. Coronary artery stent. ENCOUNTER: Initial ACUITY: 4 - 6 days PAIN SCORE: 10/10 LOCATION: Left pelvis SI joint. FINDINGS: There are mild degenerative changes in the hips bilaterally. No evidence of fracture or dislocation. There is no evidence of pelvic fracture or destructive change. Degenerative changes noted in the visu alized lower lumbar spine. Vascular calcifications are present. CONCLUSION: No acute bony findings Jose Henry MD on December 09, 2017 at 5:39 Board Certified Radiologist. This report was verified electronically.
--- NOTE | 2017-12-09 05:44 | RADRPT ---
EXAM DATE/TIME: 12/09/2017 05:20 [facility] COMPARISON: No previous studies available for comparison. INDICATIONS : Pain. MEDICAL HISTORY : Myocardial infarction. Hypercholesterolemia. Hypertension Hiatal hernia. SURGICAL HISTORY : CABG. Coronary artery stent. ENCOUNTER: Initial ACUITY: 4 - 6 days PAIN SCORE: 10/10 LOCATION: Left L-spine, SI joint. FINDINGS: There is slight right convex lumbar scoliosis. No evidence of spondylolisthesis. There is moderately severe degenerative change present throughout the lumbar spine with disc space narrowing and endplate osteophyte formation at all visualized levels. CONCLUSION: Degenerative changes throughout. No acute bony findings Jose Henry MD on December 09, 2017 at 5:42 Board Certified Radiologist. This report was verified electronically.
[2017-12-09] MEDS ORDERED: PERC5TAB12 PO (06:23)
--- NOTE | 2017-12-09 06:23 | PD ---
HPI Chief Complaint: Flank/Kidney Pain Time Seen by Provider: 04:32 Travel History International Travel<30 days: No Contact w/Intl Traveler<30days: No Traveled to known affect area: No History of Present Illness HPI 82-year-old male presents to the ER with a 4 day history of low back pain. Atraumatic back pain which is localized in the left lumbar and sacral spine. There is no sciatica, no neurological symptoms, no leg involvement at all. There is no loss of bowel or bladder continence. Patient has had prior episodes of similar pain. He is taking [id number] remedies without relief. PFSH Past Medical History Hx Anticoagulant Therapy: Yes (PLAVIX) Blood Disorders: No Heart Rhythm Problems: No Cancer: No Cardiac Catheterization: No Cardiovascular Problems: Yes (CARDIAC CATH october 26 2016 X3 stents placed) High Cholesterol: Yes Chest Pain: Yes Congestive Heart Failure: No Cerebrovascular Accident: No Diabetes: No Diminished Hearing: No Endocrine: Yes Gastrointestinal Disorders: Yes GERD: Yes Genitourinary: No Hiatal Hernia: Yes (2002) Hypertension: Yes Immune Disorder: No Inguinal Hernia: Yes Implanted Vascular Access Dvce: Yes Musculoskeletal: No Neurologic: Yes Psychiatric: No Reproductive: No Respiratory: No Migraines: No Seizures: No Thyroid Disease: Yes (HYPOTHYROID) Ulcer: No Past Surgical History Abdominal Surgery: Yes (APPENDIX RUPTURE TEENAGER) Appendectomy: Yes Cardiac Surgery: Yes (CABG December) Coronary Artery Bypass Graft: No Ear Surgery: No Endocrine Surgery: No Eye Surgery: No Genitourinary Surgery: No Gynecologic Surgery: No Oral Surgery: Yes (TONSIL REMOVAL TEENAGER) Thoracic Surgery: Yes ([facility] December) Tonsillectomy: Yes Other Surgery: Yes (INGUINAL HERNIA REMOVED , CABG December 20, 2016) Family History Family Myocardial Infarction: Yes (father of heat attack) Social History Alcohol Use: No Tobacco Use: No Substance Use: No Allergies-Medications (Allergen,Severity, Reaction): Coded Allergies: No Known Allergies (Verified Adverse Reaction, Unknown, 12/09/17) Reported Meds & Prescriptions Reported Meds & Active Scripts Active Percocet (Oxycodone-Acetaminophen) 5-325 mg Tab 1 Tab PO Q8H PRN 5 Days Lisinopril 5 Mg Tab 5 Mg PO DAILY Metoprolol Tartrate 25 Mg Tab 25 Mg PO BID Atorvastatin (Atorvastatin Calcium) 20 Mg Tab 20 Mg PO HS Reported Aspirin Adult Low Strength (Aspirin) 81 Mg Tabdr 81 Mg PO DAILY Dorzolamide-Timolol Opth Drops 22.3-6.8 Mg/Ml Soln 1 Drop EACH EYE BID Latanoprost Opth Drops (Latanoprost) 0.005% Drops 1 Drop EACH EYE HS Refrigerate until opened. Temazepam 15 Mg Cap 15 Mg PO HS PRN Levothyroxine (Levothyroxine Sodium) 125 Mcg Tab 150 Mcg PO DAILY Review of Systems Except as stated in HPI: all other systems reviewed are Neg Gastrointestinal: No: Changes in Bowel Habits Genitourinary: No: Urgency, Frequency, Dysuria, Nocturia, Hematuria, Hesitancy , Dribbling, Incontinence Musculoskeletal: Positive: Pain (back pain), No: Weakness, Edema Physical Exam Narrative GENERAL: Well-nourished, well-developed patient. SKIN: Focused skin assessment warm/dry. HEAD: Normocephalic. EYES: No scleral icterus. No injection or drainage. NECK: Supple, trachea midline. No JVD or lymphadenopathy. CARDIOVASCULAR: Regular rate and rhythm without murmurs, gallops, or rubs. RESPIRATORY: Breath sounds equal bilaterally. No accessory muscle use. GASTROINTESTINAL: Abdomen soft, non-tender, nondistended. MUSCULOSKELETAL: No cyanosis, or edema. BACK: Nontender without obvious deformity. No CVA tenderness. Patient seems to be mostly in his sacroiliac region and low lumbar there is no spasm of the musculature in the left. All of his pain is on the left Data Data Last Documented VS Vital Signs Date Time Temp Pulse Resp B/P (MAP) Pulse Ox O2 Delivery O2 Flow Rate FiO2 12/09/17 04:19 88 20 156/68 (97) 96 Room Air 12/09/17 04:07 98.6 Orders Orders Oxycodone-Acetamin 5-325 Mg (Percocet (12/09/17 05:15) Spine, Lumbar - Ltd (Ap & Lat) (12/09/17 ) Pelvis, Ap Only (Routine) (12/09/17 ) MDM Medical Decision Making Medical Screen Exam Complete: Yes Emergency Medical Condition: Yes Differential Diagnosis musculoskeletal pain Narrative Course patient seen and evaluated in the ED. Radiographs were negative. Pain relieved by Percocet. Patient given RX for percocet and discharged home Diagnosis Primary Impression: Back pain Qualified Codes: M54.5 - Low back pain Patient Instructions: Narcotic given in the ED Med/Other Pt SpecificInfo: Prescription(s) given Scripts Oxycodone-Acetaminophen (Percocet) 5-325 mg Tab 1 TAB PO Q8H Y for PAIN for 5 Days, #15 TAB 0 Refills Prov: María Mcdowell DO 12/09/17 Disposition: 01 DISCHARGE HOME Condition: Good María Mcdowell DO December 09, 2017 06:23
== END 2017-12-09 08:42 | disposition home or self-care (01) ==
LOC: NEPC 04:03
DX: M54.5 Low back pain (principal); M51.36 Other intervertebral disc degeneration, lumbar region; E78.00 Pure hypercholesterolemia, unspecified; K21.9 Gastro-esophageal reflux disease without esophagitis; I10 Essential (primary) hypertension; E03.9 Hypothyroidism, unspecified; Z79.82 Long term (current) use of aspirin; Z79.899 Other long term (current) drug therapy
CPT/HCPCS: 72100; 72170; 99283